=== PATIENT | male | born 1955 | race Caucasian/White ===

== ENCOUNTER 2016-08-03 11:48 | Inpatient (IN) | payer OTHER ==
[~2016-08-03] VITALS: Ht 175.3 cm; Wt 112.0 kg
[~2016-08-03 11:48] MED LIST: ASCO10006 PO; ASPI81TA2 PO; CA C1TAB28 PO; CRAN1TAB6 PO; CYAN25003 SL; FURO-69 PO; GABA-586 PO; GLIM4TAB2 PO; GLUC1CAP48 PO; INSU100I18 SQ; LINA5TAB PO; LIRA0.6P SQ; MULT1TAB52 PO; OMEG1CAP38 PO; OMEP40CA2 PO; PIOG1TAB PO; RAMI10CA PO; SUCR1TAB29 PO; TRAM-29 PO; VITA400C11 PO; [UNRECOGNIZED DRUG - CODE] SQ; magnesium PO
[2016-08-03 12:32] LABS: BILIRUBIN,URINE NEGATIVE (NEG); GLUCOSE,URINE NEGATIVE (NEG); NITRITE,URINE NEGATIVE (NEG); UROBILINOGEN,URINE 0.2 mg/dL (0.2 mg/dL)
[2016-08-03 12:41] LABS: BACTERIA,URINE 0 /HPF (0-FEW); PROTEIN,URINE 30 mg/dL (NEG-TRACE); SQUAMOUS EPITHELIAL CELL,UR OCC /LPF; WBC,URINE 0 /HPF (0-4)
[2016-08-03 12:45] LABS: BASO # 0.1 x10^3/uL (0.0-0.2); BASO % 1 % (0-3); EOS % 6 % (0-3); HEMATOCRIT 46.6 % (39.0-53.0); HEMOGLOBIN 15.5 g/dL (13.0-17.5); LYMPH # 0.7 x10^3/uL (1.0-4.8); LYMPH % 14 % (24-48); MEAN CORPUSCULAR HEMOGLOBIN 30 pg (25-35); MEAN CORPUSCULAR HGB CONC 33 g/dL (31-37); MEAN CORPUSCULAR VOLUME 89 fL (79-100); MONO % 8 % (0-9); NEUT % 71 % (31-73); PLATELET COUNT 90 x10^3/uL (140-400); RED BLOOD COUNT 5.21 x10^6/uL (4.30-5.70); WHITE BLOOD COUNT 5.2 x10^3/uL (4.0-11.0)
[2016-08-03 12:56] LABS: CALCIUM 9.6 mg/dL (8.5-10.1); GFR 75.7
[2016-08-03 13:01] LABS: ALBUMIN 3.2 g/dL (3.4-5.0); DIRECT BILIRUBIN 0.4 mg/dL (0.0-0.2); TOTAL BILIRUBIN 2.2 mg/dL (0.2-1.0); TOTAL PROTEIN 6.3 g/dL (6.4-8.2)
--- NOTE | 2016-08-03 13:02 | EKG ---
[facility] [address] [place] [address] Test Date: 2016-08-03 Test Time: 12:24:44 Pat Name: AMALIA CORDERO Department: Room: Gender: M Prop Setter: : 1955 Requested By: NANETTE WALTER Order Number: [id number] Reading MD: Pam Ogden Measurements Intervals [place] Rate: 60 P: 28 MN: 182 QRS: -54 QRSD: 92 T: 48 QT: 428 QTc: 428 Interpretive Statements SINUS RHYTHM normal ekg Electronically Signed On 08-04-2016 9:48:11 CORPORATE SERVICES MANAGER by Pam Ogden
--- NOTE | 2016-08-03 13:22 | RAD ---
Indication fatigue. Bad health for 6 months. Protocol study. A single view of the chest was obtained. Comparison is made to an examination 07/07/2016. Heart size is at the upper limits of normal. There is no gross congestive heart failure. A focal infiltrate is not seen. Significant pleural fluid is not present. There is no pneumothorax. There are several healed posterior right rib fractures. IMPRESSION: No acute finding apparent in the chest
[2016-08-03] MEDS ORDERED: MORPHINE SULFATE 2 MG/ML DISP.SYRIN. IV PRN (13:45)
[2016-08-03] MEDS ORDERED: ONDANSETRON PF 4 MG/2 ML VIAL. IV PRN (13:45)
--- NOTE | 2016-08-03 13:45 | PHYS DOC ---
Past Medical History Past Medical History: Diabetes-Type II, Hypertension Additional Past Medical Histor: diabetic encephalopathy, svt, URINARY RETENTION , NEUROPATHY Past Surgical History: Cholecystectomy Additional Past Surgical Histo: not able to answer Alcohol Use: None Drug Use: None, Other Adult General Chief Complaint Chief Complaint: WEAKNESS/GENERALIZED HPI HPI 61-year-old male presenting the emergency department with generalized weakness over the past 2 months. He has been intermittently visiting with an infectious disease doctor and receiving multiple types of antibiotics which he reports is improving. He also reports an abnormal ammonia level without an identifiable reason at this point. His primary care physician is trying to get him into a GI doctor but they are unable to so far. Currently he denies any pain anywhere he denies shortness of breath fevers or chills. Onset 3 months Location generalized Duration constant Worse with walking. Review of Systems Review of Systems ROS negative for chest pain shortness of breath fevers chills cough. He denies recent URI. He denies recent GI illness. All other review of systems is negative unless otherwise noted in history of present illness. Current Medications Current Medications Current Medications Medications (Trade) Dose Ordered Sig/Charles Start Time Stop Time Status Last Admin Dose Admin Morphine Sulfate 2 mg PRN Q2HR PRN 08/03/16 13:45 08/04/16 13:44 Ondansetron HCl (Zofran) 4 mg PRN Q8HRS PRN 08/03/16 13:45 08/04/16 13:44 Allergies Allergies Allergies Coded Allergies Type Severity Reaction Last Updated Verified No Known Drug Allergies 07/19/13 No Physical Exam Physical Exam Constitutional: Well developed, well nourished, no acute distress, non-toxic appearance. HENT: Normocephalic, atraumatic, bilateral external ears normal, oropharynx moist, no oral exudates, nose normal. [] Eyes: PERRLA, EOMI, conjunctiva normal, no discharge. [] Neck: Normal range of motion, no tenderness, supple, no stridor. Cardiovascular:Heart rate regular rhythm, no murmur [] Lungs & Thorax: Bilateral breath sounds clear to auscultation [] Abdomen: Bowel sounds normal, soft, no tenderness, no masses, no pulsatile masses. Skin: Warm, dry, no erythema, no rash. [] Back: No tenderness, no CVA tenderness. [] Extremities: No tenderness, no cyanosis, no clubbing, ROM intact, no edema. Neurologic: Mental status: Awake oriented and alert x3 Cranial nerves: Extraocular movements intact, eyebrows vanita bilaterally smile symmetric, uvula elevation, shoulder shrug intact, tongue protrusion normal DTRs: 2+ in knees, 2+ in biceps Sensation: equal and normal in all extremities Strength: 5 out of 5 strength in his upper extremities. 4 minus out of 5 strength in his lower extremities bilaterally. Psychologic: Affect normal, judgement normal, mood normal. [] Current Patient Data Vital Signs Vital Signs Date Time Temp Pulse Resp B/P Pulse Ox O2 Delivery O2 Flow Rate FiO2 08/03/16 13:00 56 16 152/99 94 Room Air 08/03/16 12:38 98.5 98.5 Lab Values Laboratory Tests Test 08/03/16 12:00 08/03/16 12:04 08/03/16 12:19 White Blood Count 5.2x10^3/uL (4.0-11.0) Red Blood Count 5.21x10^6/uL (4.30-5.70) Hemoglobin 15.5g/dL (13.0-17.5) Hematocrit 46.6% (39.0-53.0) Mean Corpuscular Volume 89fL (79-100) Mean Corpuscular Hemoglobin 30pg (25-35) Mean Corpuscular Hemoglobin Concent 33g/dL (31-37) Red Cell Distribution Width 15.0% (11.5-14.5) H Platelet Count 90x10^3/uL (140-400) L Neutrophils (%) (Auto) 71% (31-73) Lymphocytes (%) (Auto) 14% (24-48) L Monocytes (%) (Auto) 8% (0-9) Eosinophils (%) (Auto) 6% (0-3) H Basophils (%) (Auto) 1% (0-3) Neutrophils # (Auto) 3.7x10^3uL (1.8-7.7) Lymphocytes # (Auto) 0.7x10^3/uL (1.0-4.8) L Monocytes # (Auto) 0.4x10^3/uL (0.0-1.1) Eosinophils # (Auto) 0.3x10^3/uL (0.0-0.7) Basophils # (Auto) 0.1x10^3/uL (0.0-0.2) Sodium Level 140mmol/L (136-145) Potassium Level 5.0mmol/L (3.5-5.1) Chloride Level 105mmol/L (98-107) Carbon Dioxide Level 32mmol/L (21-32) Anion Gap 3 (6-14) L Blood Urea Nitrogen 23mg/dL (8-26) Creatinine 1.0mg/dL (0.7-1.3) Estimated GFR (Cockcroft-Gault) 75.7 Glucose Level 232mg/dL (70-99) H Calcium Level 9.6mg/dL (8.5-10.1) Total Bilirubin 2.2mg/dL (0.2-1.0) H Direct Bilirubin 0.4mg/dL (0.0-0.2) H Aspartate Amino Transferase (AST) 45U/L (15-37) H Alanine Aminotransferase (ALT) 43U/L (16-63) Alkaline Phosphatase 78U/L (46-116) Ammonia 157mcmol/L (11-34) H Troponin I Quantitative 0.017ng/mL (0.000-0.055) KJ-Zxb-T-Type Natriuretic Peptide 72pg/mL (0-124) Total Protein 6.3g/dL (6.4-8.2) L Albumin 3.2g/dL (3.4-5.0) L Lipase 126U/L (73-393) Urine Collection Type Void Urine Color Yellow Urine Clarity Clear Urine pH 6.0 Urine Specific [place] 1.015 Urine Protein 30mg/dL (NEG-TRACE) Urine Glucose (UA) Negativemg/dL (NEG) Urine Ketones (Stick) Negativemg/dL (NEG) Urine Blood Small (NEG) Urine Nitrite Negative (NEG) Urine Bilirubin Negative (NEG) Urine Urobilinogen Dipstick 0.2mg/dL (0.2 mg/dL) Urine Leukocyte Esterase Negative (NEG) Urine RBC 1-2/HPF (0-2) Urine WBC 0/HPF (0-4) Urine Squamous Epithelial Cells Occ/LPF Urine Bacteria 0/HPF (0-FEW) Urine Hyaline Casts Few/HPF Urine Mucus Slight/LPF Glucose (Fingerstick) 196mg/dL (70-99) H Laboratory Tests 08/03/16 12:00 Laboratory Tests 08/03/16 12:00 EKG EKG [] Radiology/Procedures Radiology/Procedures [] Course & Med Decision Making Course & Med Decision Making Pertinent Labs and Imaging studies reviewed. (See chart for details) 61-year-old male presenting to the emergency department today with generalized weakness in his lower extremities. On evaluation the patient was afebrile with hypertension. Otherwise normal vital signs. Physical exam showed mild weakness in the lower extremities bilaterally. No history of recent illness to suggest Guillain-Christianson. Pulmonary function tests ordered. Workup included blood work which was normal CBC. Chemistry panel showed hyperglycemia with increased total bili. Direct bili rib and elevated as well. Troponin negative. EKG showed sinus rhythm with a regular rate. ST segments congruent. Intervals normal. Head CT obtained. Urinalysis not suggestive of infection. The patient was then brought in to our hospital for further evaluation workup and care. Multiple consultations placed. Dragon Disclaimer Dragon Disclaimer This electronic medical record was generated, in whole or in part, using a voice recognition dictation system. Departure Departure Impression: Primary Impression: Lower extremity weakness Disposition: ADMITTED INPATIENT Admitting Physician: Aidan Yarbrough Condition: STABLE Referrals: CLINT BARRERA MD (PCP) NANETTE WALTER MD Aug 03, 2016 13:45
[2016-08-03 15:00] VITALS: BP 159/109
--- NOTE | 2016-08-03 15:11 | PDOC2 ---
GI CONSULT Reason For Consult: Elevated bilirubin HPI: HPI: This 61 y/o white male is seen in the ER w/ pending admission to regular floor. H/o LE cellulitis/sepsis and encephalopathy in 02/2016. Since then has been on and off of antibiotics. Symptoms of weakness ("legs feel like noodles") and cognitive changes are improved on antibiotics but recur once stopped. Last round (w/ PICC) was finished a few days ago. says Dr. Porter recommended GI evaluation for symptom recurrence. Labs significant for plt 90, total bilirubin 2.2, direct bilirubin 0.4, AST 45, ALT 43, Alk Phos 78, glucose 232, ammonia 157. In 02/2016, bilirubin was 2.4, ammonia was elevated (30-50 range), and Hep B and C were negative. At that time, CT A/P w/o contrast (for hematuria ) showed splenomegaly w/ possible portal hypertension and normal-appearing liver and pancreas. His says he has fatty liver. GI history additionally significant for PUD on EGD ~10 years ago. He has occasional indigestion after eating spicy foods improved w/ Rolaids and carafate PRN. He has chronic diarrhea (estimates 5 stools daily) that has actually been improved w/ probiotics recently. Last colonoscopy was reportedly normal (also ~10 years ago). S/p cholecystectomy (says for gallstones) in 2015. Denies n/v, change in appetite, reflux/heartburn, dysphagia, hematochezia , melena, constipation, and abdominal pain. He has lost 13 pounds intentionally over the past two months; he has been attempting a more healthy diet. ID and neuro consulted as well. PMH: PMH: HTN, HLD, CVA, PUD, fatty liver, DM, peripheral neuropathy, OA, cholecystectomy FH: Family History: CAD, CVA, DM, Hypertension Social History: Smoke: Quit ALCOHOL: none Drugs: None ROS: GEN: Denies fevers, chills, sweats HEENT: Denies blurred vision, sore throat CV: Denies chest pain RESP: Denies shortness of air, cough GI: Per HPI : Denies hematuria, dysuria ENDO: intentional weight loss NEURO: - "changes in thought process" MSK: weakness, particularly lower extremity SKIN: Denies jaundice, pruritus VItals: Vitals: Vital Signs Date Time Temp Pulse Resp B/P Pulse Ox O2 Delivery O2 Flow Rate FiO2 08/03/16 14:00 54 14 168/74 93 08/03/16 13:00 Room Air 08/03/16 12:38 98.5 98.5 Labs: Labs: Laboratory Tests Test 08/03/16 12:00 08/03/16 12:04 08/03/16 12:19 White Blood Count 5.2x10^3/uL (4.0-11.0) Red Blood Count 5.21x10^6/uL (4.30-5.70) Hemoglobin 15.5g/dL (13.0-17.5) Hematocrit 46.6% (39.0-53.0) Mean Corpuscular Volume 89fL (79-100) Mean Corpuscular Hemoglobin 30pg (25-35) Mean Corpuscular Hemoglobin Concent 33g/dL (31-37) Red Cell Distribution Width 15.0% (11.5-14.5) Platelet Count 90x10^3/uL (140-400) Neutrophils (%) (Auto) 71% (31-73) Lymphocytes (%) (Auto) 14% (24-48) Monocytes (%) (Auto) 8% (0-9) Eosinophils (%) (Auto) 6% (0-3) Basophils (%) (Auto) 1% (0-3) Neutrophils # (Auto) 3.7x10^3uL (1.8-7.7) Lymphocytes # (Auto) 0.7x10^3/uL (1.0-4.8) Monocytes # (Auto) 0.4x10^3/uL (0.0-1.1) Eosinophils # (Auto) 0.3x10^3/uL (0.0-0.7) Basophils # (Auto) 0.1x10^3/uL (0.0-0.2) Sodium Level 140mmol/L (136-145) Potassium Level 5.0mmol/L (3.5-5.1) Chloride Level 105mmol/L (98-107) Carbon Dioxide Level 32mmol/L (21-32) Anion Gap 3 (6-14) Blood Urea Nitrogen 23mg/dL (8-26) Creatinine 1.0mg/dL (0.7-1.3) Estimated GFR (Cockcroft-Gault) 75.7 Glucose Level 232mg/dL (70-99) Calcium Level 9.6mg/dL (8.5-10.1) Total Bilirubin 2.2mg/dL (0.2-1.0) Direct Bilirubin 0.4mg/dL (0.0-0.2) Aspartate Amino Transf (AST/SGOT) 45U/L (15-37) Alanine Aminotransferase (ALT/SGPT) 43U/L (16-63) Alkaline Phosphatase 78U/L (46-116) Ammonia 157mcmol/L (11-34) Troponin I Quantitative 0.017ng/mL (0.000-0.055) DA-Snx-I-Type Natriuretic Peptide 72pg/mL (0-124) Total Protein 6.3g/dL (6.4-8.2) Albumin 3.2g/dL (3.4-5.0) Lipase 126U/L (73-393) Urine Collection Type Void Urine Color Yellow Urine Clarity Clear Urine pH 6.0 Urine Specific [place] 1.015 Urine Protein 30mg/dL (NEG-TRACE) Urine Glucose (UA) Negativemg/dL (NEG) Urine Ketones (Stick) Negativemg/dL (NEG) Urine Blood Small (NEG) Urine Nitrite Negative (NEG) Urine Bilirubin Negative (NEG) Urine Urobilinogen Dipstick 0.2mg/dL (0.2 mg/dL) Urine Leukocyte Esterase Negative (NEG) Urine RBC 1-2/HPF (0-2) Urine WBC 0/HPF (0-4) Urine Squamous Epithelial Cells Occ/LPF Urine Bacteria 0/HPF (0-FEW) Urine Hyaline Casts Few/HPF Urine Mucus Slight/LPF Glucose (Fingerstick) 196mg/dL (70-99) Allergies: Coded Allergies: No Known Drug Allergies (Unverified , 07/19/13) Medications: Please see EMR. Imaging: Imaging: Reviewed previous. PE: GEN: NAD, sitting in chair HEENT: Atraumatic, PERRL LUNGS: CTAB anteriorly HEART: S1S2 ABD: NABS, S/ND/NT EXTREMITY: BLE pitting edema SKIN: No rashes, no jaundice NEURO/PSYCH: A & O 3 A/P: A/P: Weakness, cognitive changes -apparent since cellulitis/sepsis in 02/2016, improved w/ antibiotics but recurs Elevated bilirubin, hyperammonemia -splenomegaly and ?portal hypertension on previous CT w/o contrast -Hep B antigen and C antibody previously neg -no significant alcohol history, does have h/o DM w/ fatty liver per Chronic diarrhea -generally about 5 stools daily, actually improved w/ probiotics recently H/o PUD -on EGD 10 years ago -now has only occasional dyspeptic symptoms improved w/ antacids and Carafate CRC screen -reports normal colonoscopy 10 years ago -- D/w Pr. Propeck. Seems like cirrhosis w/ hepatic encephalopathy - ?WALTER Will start Xifaxan - lactulose an option, but does have chronic diarrhea. Check additional labs - GUILLAUME, AMA, ASMA, iron studies, hFE, AFP. Will also check abd Doppler r/o thrombosis. FERNANDEZ CHEEK Aug 03, 2016 15:11
[2016-08-03 15:27] VITALS: BP 156/109
[2016-08-03] MEDS ORDERED: OMEG500C PO (16:25)
[2016-08-03] MEDS ORDERED: CYAN1TAB19 PO (16:25)
[2016-08-03] MEDS ORDERED: GABA600T2 PO (16:25)
[2016-08-03] MEDS ORDERED: TAMS0.4C97 PO (16:25)
--- NOTE | 2016-08-03 16:44 | PDOC2 ---
NEUROLOGY CONSULT Date of Admission Date of Admission DATE: 08/03/16 TIME: 16:24 Reason for Consult Reason for Consult: weakness Referring Physician Referring Physician: Dr. Yarbrough PCP: Dr. Moreno Source Source: Chart review, Patient History of Present Illness History of Present Illness The patient is a 61-year-old right-handed male who has felt poorly for nearly a year. He came in February last year and saw myself and Dr. Padilla regarding episodes of syncope, memory loss, and weakness. He had extensive workup as summarized below. Since then, he has had bouts of weakness. He has received antibiotic treatments which seem to give him a boost, but then he slides back after they are done. He saw Dr. Ryder who put the patient on gabapentin. The patient denies fevers, chills, weight loss, dyspnea, dysuria, diplopia, dysphagia, and he really thinks his cognitive level is fine. There is no history of stroke, seizure, or head injury although MRI as reviewed below did show prior infarcts. Past Medical History Cardiovascular: CHF, HTN, Other (PAT) Pulmonary: Pneumonia, Other (sleep apnea) CENTRAL NERVOUS SYSTEM: Periperal neuropathy GI: Peptic Ulcer disease Heme/Onc: Anemia NOS Musculoskeletal: Osteoarthritis Endocrine: Diabetes Past Surgical History Past Surgical History: Cholecystectomy, Other (implantable loop recorder) Family History Family History: CAD Social History Social History , nonsmoker, nondrinker, has not worked in 8 months. Current Medications Current Medications Current Medications Ondansetron HCl (Zofran) 4 mg PRN Q8HRS PRN IV NAUSEA/VOMITING; Start 08/03/16 at 13:45; Stop 08/04/16 at 13:44 Morphine Sulfate 2 mg PRN Q2HR PRN IV PAIN; Start 08/03/16 at 13:45; Stop 08/04 at 13:44 Lactobacillus Acidophilus (Bacid, Debbie-Bid) 1 tab DAILY PO ; Start 08/04/16 at 09:00 Rifaximin (Xifaxan) 550 mg Q12HR PO ; Start 08/03/16 at 21:00 Active Scripts Active Reported Victoza 2-Marvel (Liraglutide) 0.6 Mg/0.1 Ml Pen.injctr 1.8 Mg SQ DAILYBFRLUN [magnesium] 1 Tab PO DAILY Cranberry Tablet (Cranberry Conc/C/Bacill Coag) 1 Each Tablet 1 Each PO DAILY Multivitamins (Multivitamin) 1 Each Tablet 1 Each PO DAILY Vitamin B-12 (Cyanocobalamin (Vitamin B-12)) 2,500 Mcg Tab.subl 2,500 Mcg SL DAILY Dane 3 Fish Oil Softgel (Dane-3 Fatty Acids/Fish Oil) 1 Each Capsule. 1 Each PO DAILY Vitamin C (Ascorbic Acid) 1,000 Mg Tablet.er 1,000 Mg PO DAILY Vitamin D3 1,000 Unit Tablet (Ca Cmb No.1/Vit D3/B-6/Fa/B12) 1 Each Tablet 1 Each PO DAILY Vitamin E 400 Unit Capsule 400 Unit PO DAILY Glucosamine & Chondroitin Cap (Gluc 2KCL/Chondr/Seema Hy/Hy Ac) 1 Each Capsule 1 Each PO DAILY Carafate (Sucralfate) 1 Gm Tablet 1 Gm PO PRN QID Levemir Flexpen (Insulin Detemir) 100 Unit/1 Ml Insuln.pen 60 Unit SQ DAILYBFRLUN Aspirin 81 Mg Tab.chew 81 Mg PO DAILY Neurontin (Gabapentin) 300 Mg Capsule 1,200 Mg PO PRN BID Lasix (Furosemide) 20 Mg Tablet 20 Mg PO PRN BID Pioglitazone-Metformin 15-850 (Pioglitazone Hcl/Metformin Hcl) 1 Each Tablet 2 Tab PO DAILYBFRSUP Pioglitazone-Metformin 15-850 (Pioglitazone Hcl/Metformin Hcl) 1 Each Tablet 1 Tab PO DAILYWBKFT Tradjenta (Linagliptin) 5 Mg Tablet 5 Mg PO DAILY Glimepiride 4 Mg Tablet 4 Mg PO BID94 Ultram (Tramadol Hcl) 50 Mg Tablet 50 Mg PO TID PRN Ramipril 10 Mg Capsule 20 Mg PO DAILY Prilosec (Omeprazole) 40 Mg Capsule. 40 Mg PO DAILY Allergies Allergies: Coded Allergies: No Known Drug Allergies (Unverified , 07/19/13) ROS Review of System Patient denies fevers, chills, weight loss, dyspnea, angina, abdominal pain, change in bowels, or dysuria. 14 point review of systems is negative. Physical Exam Physical Examination PHYSICAL EXAMINATION: Vital signs: see above. General appearance is normal and in no acute distress. HEENT: Normocephalic and nontraumatic. Eyes, nose, ears, and throat are unremarkable. Neck is supple. No lymphadenopathy. No bruits are heard over the carotid artery. No crepitus. NEUROLOGICAL EXAMINATION: Mental Status Examination: Alert. Oriented to time, place, and person. Answers questions and follows commends. Pupils are equal round and reactive to light and accommodation. Funduscopic exam: No papilledema. Extraocular movements are intact. Visual field exam shows no defect on the direct confrontation. No motor or sensory deficits on the facial exam. Uvula in the midline and the soft palate elevated symmetrically. No deviation of the tongue to any direction. Gross hearing is normal. Shoulder shrug normal. Muscle tone is normal. Muscle strength is 5. Deep tendon reflexes are 0+ all around. Plantar reflex is with flexion response bilaterally. Ppuxqf-hz-ekgo test performance is accurate. Alternative movements are accurate. Gait is mildly apraxic. Sensory exam shows stocking loss. No cerebellar signs are elicited. Vitals VITALS Vital Signs Date Time Temp Pulse Resp B/P Pulse Ox O2 Delivery O2 Flow Rate FiO2 08/03/16 15:27 98.1 55 19 156/109 96 Room Air 98.1 Labs Labs Laboratory Tests Test 08/03/16 12:00 08/03/16 12:04 08/03/16 12:19 White Blood Count 5.2x10^3/uL (4.0-11.0) Red Blood Count 5.21x10^6/uL (4.30-5.70) Hemoglobin 15.5g/dL (13.0-17.5) Hematocrit 46.6% (39.0-53.0) Mean Corpuscular Volume 89fL (79-100) Mean Corpuscular Hemoglobin 30pg (25-35) Mean Corpuscular Hemoglobin Concent 33g/dL (31-37) Red Cell Distribution Width 15.0% (11.5-14.5) Platelet Count 90x10^3/uL (140-400) Neutrophils (%) (Auto) 71% (31-73) Lymphocytes (%) (Auto) 14% (24-48) Monocytes (%) (Auto) 8% (0-9) Eosinophils (%) (Auto) 6% (0-3) Basophils (%) (Auto) 1% (0-3) Neutrophils # (Auto) 3.7x10^3uL (1.8-7.7) Lymphocytes # (Auto) 0.7x10^3/uL (1.0-4.8) Monocytes # (Auto) 0.4x10^3/uL (0.0-1.1) Eosinophils # (Auto) 0.3x10^3/uL (0.0-0.7) Basophils # (Auto) 0.1x10^3/uL (0.0-0.2) Sodium Level 140mmol/L (136-145) Potassium Level 5.0mmol/L (3.5-5.1) Chloride Level 105mmol/L (98-107) Carbon Dioxide Level 32mmol/L (21-32) Anion Gap 3 (6-14) Blood Urea Nitrogen 23mg/dL (8-26) Creatinine 1.0mg/dL (0.7-1.3) Estimated GFR (Cockcroft-Gault) 75.7 Glucose Level 232mg/dL (70-99) Calcium Level 9.6mg/dL (8.5-10.1) Total Bilirubin 2.2mg/dL (0.2-1.0) Direct Bilirubin 0.4mg/dL (0.0-0.2) Aspartate Amino Transf (AST/SGOT) 45U/L (15-37) Alanine Aminotransferase (ALT/SGPT) 43U/L (16-63) Alkaline Phosphatase 78U/L (46-116) Ammonia 157mcmol/L (11-34) Troponin I Quantitative 0.017ng/mL (0.000-0.055) IO-Lrx-I-Type Natriuretic Peptide 72pg/mL (0-124) Total Protein 6.3g/dL (6.4-8.2) Albumin 3.2g/dL (3.4-5.0) Lipase 126U/L (73-393) Urine Collection Type Void Urine Color Yellow Urine Clarity Clear Urine pH 6.0 Urine Specific [place] 1.015 Urine Protein 30mg/dL (NEG-TRACE) Urine Glucose (UA) Negativemg/dL (NEG) Urine Ketones (Stick) Negativemg/dL (NEG) Urine Blood Small (NEG) Urine Nitrite Negative (NEG) Urine Bilirubin Negative (NEG) Urine Urobilinogen Dipstick 0.2mg/dL (0.2 mg/dL) Urine Leukocyte Esterase Negative (NEG) Urine RBC 1-2/HPF (0-2) Urine WBC 0/HPF (0-4) Urine Squamous Epithelial Cells Occ/LPF Urine Bacteria 0/HPF (0-FEW) Urine Hyaline Casts Few/HPF Urine Mucus Slight/LPF Glucose (Fingerstick) 196mg/dL (70-99) Laboratory Tests Test 08/03/16 12:00 08/03/16 12:04 08/03/16 12:19 White Blood Count 5.2x10^3/uL (4.0-11.0) Red Blood Count 5.21x10^6/uL (4.30-5.70) Hemoglobin 15.5g/dL (13.0-17.5) Hematocrit 46.6% (39.0-53.0) Mean Corpuscular Volume 89fL (79-100) Mean Corpuscular Hemoglobin 30pg (25-35) Mean Corpuscular Hemoglobin Concent 33g/dL (31-37) Red Cell Distribution Width 15.0% (11.5-14.5) Platelet Count 90x10^3/uL (140-400) Neutrophils (%) (Auto) 71% (31-73) Lymphocytes (%) (Auto) 14% (24-48) Monocytes (%) (Auto) 8% (0-9) Eosinophils (%) (Auto) 6% (0-3) Basophils (%) (Auto) 1% (0-3) Neutrophils # (Auto) 3.7x10^3uL (1.8-7.7) Lymphocytes # (Auto) 0.7x10^3/uL (1.0-4.8) Monocytes # (Auto) 0.4x10^3/uL (0.0-1.1) Eosinophils # (Auto) 0.3x10^3/uL (0.0-0.7) Basophils # (Auto) 0.1x10^3/uL (0.0-0.2) Sodium Level 140mmol/L (136-145) Potassium Level 5.0mmol/L (3.5-5.1) Chloride Level 105mmol/L (98-107) Carbon Dioxide Level 32mmol/L (21-32) Anion Gap 3 (6-14) Blood Urea Nitrogen 23mg/dL (8-26) Creatinine 1.0mg/dL (0.7-1.3) Estimated GFR (Cockcroft-Gault) 75.7 Glucose Level 232mg/dL (70-99) Calcium Level 9.6mg/dL (8.5-10.1) Total Bilirubin 2.2mg/dL (0.2-1.0) Direct Bilirubin 0.4mg/dL (0.0-0.2) Aspartate Amino Transf (AST/SGOT) 45U/L (15-37) Alanine Aminotransferase (ALT/SGPT) 43U/L (16-63) Alkaline Phosphatase 78U/L (46-116) Ammonia 157mcmol/L (11-34) Troponin I Quantitative 0.017ng/mL (0.000-0.055) CZ-Gij-U-Type Natriuretic Peptide 72pg/mL (0-124) Total Protein 6.3g/dL (6.4-8.2) Albumin 3.2g/dL (3.4-5.0) Lipase 126U/L (73-393) Urine Collection Type Void Urine Color Yellow Urine Clarity Clear Urine pH 6.0 Urine Specific [place] 1.015 Urine Protein 30mg/dL (NEG-TRACE) Urine Glucose (UA) Negativemg/dL (NEG) Urine Ketones (Stick) Negativemg/dL (NEG) Urine Blood Small (NEG) Urine Nitrite Negative (NEG) Urine Bilirubin Negative (NEG) Urine Urobilinogen Dipstick 0.2mg/dL (0.2 mg/dL) Urine Leukocyte Esterase Negative (NEG) Urine RBC 1-2/HPF (0-2) Urine WBC 0/HPF (0-4) Urine Squamous Epithelial Cells Occ/LPF Urine Bacteria 0/HPF (0-FEW) Urine Hyaline Casts Few/HPF Urine Mucus Slight/LPF Glucose (Fingerstick) 196mg/dL (70-99) Images Images Brain MRI w/wo contrast on 02/13/16: old lacunar strokes. EEG on 03/02/16: Normal. Head CT 03/02/16: negative. Carotid Doppler: no high grade stenosis. Echo: Unremarkable. CT abdomen/pelvis, 03/02/16: Splenomegaly with multiple prominent vascular channels along the splenic hilum and retroperitoneum raising question for portal hypertension labs in 03/03: elevated ammonia, normal B12, HgbA1C 7.0 Assessment/Plan Assessment/Plan Impression: This is a picture of peripheral neuropathy, most likely just from diabetes, but there are some strange wrinkles including response to antibiotics, the memory loss, the elevated liver function testing including ammonia level, the intermittency of the weakness. I find no evidence of central nervous system disease. We need to look for other causes of neuropathy. I am also keeping in mind the possibility of myasthenia gravis. Given the response to antibiotics we need to look for an infectious process within the central nervous system. Recommendations: GI workup Additional laboratory studies Lumbar puncture Rehabilitation modalities EMG/NCV which I will do later in the hospital stay after these intial tests are back Thank you for letting me help with the patient's care. JONO GARZA MD Aug 03, 2016 4:44 pm
[2016-08-03] MEDS ORDERED: INSU100V13 SQ (16:57)
[2016-08-03] MEDS ORDERED: INSU100C4 SQ (16:57)
[2016-08-03] MEDS ORDERED: MULT-208 PO (17:02)
[2016-08-03] MEDS ORDERED: FERR-26 PO (17:02)
[2016-08-03] MEDS ORDERED: RAMI10CA PO (17:02)
[2016-08-03] MEDS ORDERED: METO25TA4 PO (17:04)
[2016-08-03] MEDS ORDERED: SUCRALFATE 1 GM TABLET. PO PRN (18:00)
--- NOTE | 2016-08-03 18:30 | RAD ---
PROCEDURE CT head without intravenous contrast. HISTORY Generalized weakness. TECHNIQUE Axial images are obtained of the head from the skull base through the vertex without IV contrast Exposure: One or more of the following individualized dose reduction techniques were utilized for this examination: 1. Automated exposure control. 2. Adjustment of the mA and/or kV according to patient size. 3. Use of iterative reconstruction technique. COMPARISON CT head February 27, 2016. FINDINGS The ventricles are appropriate in size, shape, and location for the patient's age.No obvious intracranial mass, mass-effect, midline shift, hemorrhage or obvious acute infarction is identified.Basilar cisterns are patent. Bone windows demonstrate no acute calvarial abnormality.The visualized paranasal sinuses appear clear. IMPRESSION No acute intracranial process. Please note that CT can be relatively insensitive to acute ischemic infarction for up to 24 hours after symptom onset. Electronically signed by: Lai Dumont MD (Aug 03, 2016 18:28:53)
--- NOTE | 2016-08-03 18:58 | HP ---
ADMIT DATE: 08/03/2016 CHIEF COMPLAINT: Lower extremity weakness and numbness. HISTORY OF PRESENT ILLNESS: The patient is a pleasant 61-year-old male, presented with the above chief complaints. Basically, it has been coming on for 2 months off and on and sometimes he feels weak and other times he feels like his feet are well. It appears he might just have a neuropathy, but he has been treated recently with antibiotics for 40 days according to his , he was septic. I discussed the case with the ER physician. He does have some lab abnormalities including elevated liver function test, elevated ammonia and elevated total bili. We are going to admit the patient and consult GI and Neurology. PAST MEDICAL HISTORY: Diabetes, hypertension, recent sepsis, neuropathy, urinary retention, cholecystectomy. ALLERGIES: None. FAMILY HISTORY: Diabetes. SOCIAL HISTORY: He is retired. He does not drink, smoke or take drugs. He is . MEDICATIONS: Reviewed, please refer to the MRAD. REVIEW OF SYSTEMS: GENERAL: No history of weight change, weakness or fevers. SKIN: No bruising, hair changes or rashes. EYES: No blurred, double or loss of vision. NOSE AND THROAT: No history of nosebleeds, hoarseness or sore throat. HEART: No history of palpitations, chest pain or shortness of breath on exertion. LUNGS: Denies cough, hemoptysis, wheezing or shortness of breath. GASTROINTESTINAL: Denies changes in appetite, nausea, vomiting, diarrhea or constipation. GENITOURINARY: No history of frequency, urgency, hesitancy or nocturia. NEUROLOGIC: Complains of lower extremity weakness and numbness and some tingling, all intermittently. PSYCHIATRIC: No history of panic, anxiety or depression. ENDOCRINE: No history of heat or cold intolerance, polyuria or polydipsia. EXTREMITIES: Denies muscle weakness, joint pain, pain on walking or stiffness. PHYSICAL EXAMINATION: VITAL SIGNS: Temperature afebrile, pulse 67, respirations 20, blood pressure 159/109. GENERAL: He is alert, cooperative, up in the chair. His is present. HEART: Normal S1, S2. LUNGS: Clear. ABDOMEN: Soft, positive bowel sounds. EXTREMITIES: Trace 1+ edema. SKIN: No rashes. His feet are dry. ENDOCRINE: No thyromegaly. LYMPHATICS: No cervical nodes. HEMATOPOIETIC: No bruising. LABORATORY DATA: White count 5, hemoglobin 15.5, platelets 90. Electrolytes: Sodium 140, potassium 5, chloride 105, bicarbonate 32, BUN 23, creatinine 1, glucose 232. Ammonia level high at 157. Troponin 0. AST a little high at 45. Total bilirubin high at 2.2. Urinalysis is negative. ASSESSMENT AND PLAN: Numbness, weakness in his feet with incidental finding of hyperbilirubinemia, elevated ammonia level and recent sepsis. The patient is being admitted. We will consult Dr. Curtis and consult Dr. Harrington. Frequent labs. Continue home medicines, PT, OT. PROGNOSIS: Guarded. BENJAMIN OSCAR DO DR: HENNA/carlos eduardo JOB#: [id number] / [id number]
[2016-08-03 19:00] VITALS: BP 179/69
[2016-08-03 19:11] LABS: % SAT IRON 35 % (15-34); IRON,SERUM 107 ug/dL (65-175)
[2016-08-03] MEDS: AMLODIPINE BESYLATE 10 MG TABLET PO SCH (19:30)
[2016-08-03] MEDS: INSULIN ASPART 300 UNITS/3 ML INSULN.PEN SQ SCH (19:40)
[2016-08-03] MEDS: METOPROLOL TART IMMED RELEASE 25 MG TABLET PO SCH (20:50)
[2016-08-03] MEDS: GABAPENTIN 400 MG CAPSULE. PO SCH (20:50)
[2016-08-03] MEDS: RIFAXIMIN 550 MG TABLET PO SCH (20:50)
[2016-08-03 23:00] VITALS: BP 152/55
[2016-08-04 03:00] VITALS: BP 144/56
[2016-08-04 03:51] LABS: BASO # 0.1 x10^3/uL (0.0-0.2); BASO % 1 % (0-3); EOS % 11 % (0-3); HEMATOCRIT 44.2 % (39.0-53.0); HEMOGLOBIN 14.9 g/dL (13.0-17.5); LYMPH # 0.9 x10^3/uL (1.0-4.8); LYMPH % 18 % (24-48); MEAN CORPUSCULAR HEMOGLOBIN 30 pg (25-35); MEAN CORPUSCULAR HGB CONC 34 g/dL (31-37); MEAN CORPUSCULAR VOLUME 89 fL (79-100); MONO % 10 % (0-9); NEUT % 60 % (31-73); PLATELET COUNT 102 x10^3/uL (140-400); RED BLOOD COUNT 4.95 x10^6/uL (4.30-5.70); RED CELL DISTRIBUTION WIDTH 15.8 % (11.5-14.5); WHITE BLOOD COUNT 5.1 x10^3/uL (4.0-11.0)
[2016-08-04 03:58] LABS: CALCIUM 9.2 mg/dL (8.5-10.1); GFR 75.7; POTASSIUM 4.4 mmol/L (3.5-5.1)
[2016-08-04 04:03] LABS: ALBUMIN 2.9 g/dL (3.4-5.0); DIRECT BILIRUBIN 0.4 mg/dL (0.0-0.2); TOTAL BILIRUBIN 2.3 mg/dL (0.2-1.0); TOTAL PROTEIN 6.6 g/dL (6.4-8.2)
[2016-08-04 07:20] VITALS: BP 156/63
[2016-08-04] MEDS: INSULIN ASPART 300 UNITS/3 ML INSULN.PEN SQ SCH ×3 (07:30→18:09)
[2016-08-04] MEDS: GLIMEPIRIDE 2 MG TABLET PO SCH ×2 (08:00→18:02)
--- NOTE | 2016-08-04 08:39 | RAD ---
Deep Doppler abdominal ultrasound, 08/03/2016: History: Hyperammonemia, portal vein thrombosis Duplex evaluation of the hepatic vasculature was performed including grayscale, color-flow and spectral Doppler analysis. Comparison is made to a study from 03/02/2016. The hepatic veins are unremarkable. The hepatic artery at the hepatic hilum is patent. No blood flow is evident in the main portal vein at the hepatic hilum. Thrombosis of the portal vein was also noted on the 03/02/2016 exam. IMPRESSION: Chronic portal vein thrombosis
--- NOTE | 2016-08-04 08:45 | PDOC ---
PROGRESS NOTES Assessment Problems Medical Problems: (1) Lower extremity weakness Status: Acute Diabetic neuropathy, rule out other causes Encephalopathy, could be hepatic Hepatic insufficiency, portal hypertension Unexplained improvements with antibiotics, rule out [employer] infection Plan Await labs Await LP ID and GI consults EMG/NCV (by me) Rehab Gabapentin Subjective denies pain Objective Vital Signs Date Time Temp Pulse Resp B/P Pulse Ox O2 Delivery O2 Flow Rate FiO2 08/04/16 07:20 97.7 61 16 156/63 92 Room Air 97.7 Intake and Output 08/04/16 07:00 Intake Total 300 ml Output Total 750 ml Balance -450 ml Intake Oral 300 ml Output Urine Total 750 ml # Voids 1 PHYSICAL EXAM Alert. Oriented to time, place and person. PERRL. EOMI. CN: no focal findings. Muscle tone: normal. Muscle strength: 5/5 DTR: 0-1+ Plantar reflex: flexor Gait: not examined in bed. Sensory exam: stocking loss. No cerebellar signs elicited. Review of Relevant I have reviewed the following items kailash (where applicable) has been applied. Labs Laboratory Tests Test 08/03/16 12:00 08/03/16 12:04 08/03/16 12:19 08/03/16 15:35 White Blood Count 5.2x10^3/uL (4.0-11.0) Red Blood Count 5.21x10^6/uL (4.30-5.70) Hemoglobin 15.5g/dL (13.0-17.5) Hematocrit 46.6% (39.0-53.0) Mean Corpuscular Volume 89fL (79-100) Mean Corpuscular Hemoglobin 30pg (25-35) Mean Corpuscular Hemoglobin Concent 33g/dL (31-37) Red Cell Distribution Width 15.0% (11.5-14.5) Platelet Count 90x10^3/uL (140-400) Neutrophils (%) (Auto) 71% (31-73) Lymphocytes (%) (Auto) 14% (24-48) Monocytes (%) (Auto) 8% (0-9) Eosinophils (%) (Auto) 6% (0-3) Basophils (%) (Auto) 1% (0-3) Neutrophils # (Auto) 3.7x10^3uL (1.8-7.7) Lymphocytes # (Auto) 0.7x10^3/uL (1.0-4.8) Monocytes # (Auto) 0.4x10^3/uL (0.0-1.1) Eosinophils # (Auto) 0.3x10^3/uL (0.0-0.7) Basophils # (Auto) 0.1x10^3/uL (0.0-0.2) Sodium Level 140mmol/L (136-145) Potassium Level 5.0mmol/L (3.5-5.1) Chloride Level 105mmol/L (98-107) Carbon Dioxide Level 32mmol/L (21-32) Anion Gap 3 (6-14) Blood Urea Nitrogen 23mg/dL (8-26) Creatinine 1.0mg/dL (0.7-1.3) Estimated GFR (Cockcroft-Gault) 75.7 Glucose Level 232mg/dL (70-99) Calcium Level 9.6mg/dL (8.5-10.1) Total Bilirubin 2.2mg/dL (0.2-1.0) Direct Bilirubin 0.4mg/dL (0.0-0.2) Aspartate Amino Transf (AST/SGOT) 45U/L (15-37) Alanine Aminotransferase (ALT/SGPT) 43U/L (16-63) Alkaline Phosphatase 78U/L (46-116) Ammonia 157mcmol/L (11-34) Troponin I Quantitative 0.017ng/mL (0.000-0.055) XT-Maq-Q-Type Natriuretic Peptide 72pg/mL (0-124) Total Protein 6.3g/dL (6.4-8.2) Albumin 3.2g/dL (3.4-5.0) Lipase 126U/L (73-393) Urine Collection Type Void Urine Color Yellow Urine Clarity Clear Urine pH 6.0 Urine Specific [place] 1.015 Urine Protein 30mg/dL (NEG-TRACE) Urine Glucose (UA) Negativemg/dL (NEG) Urine Ketones (Stick) Negativemg/dL (NEG) Urine Blood Small (NEG) Urine Nitrite Negative (NEG) Urine Bilirubin Negative (NEG) Urine Urobilinogen Dipstick 0.2mg/dL (0.2 mg/dL) Urine Leukocyte Esterase Negative (NEG) Urine RBC 1-2/HPF (0-2) Urine WBC 0/HPF (0-4) Urine Squamous Epithelial Cells Occ/LPF Urine Bacteria 0/HPF (0-FEW) Urine Hyaline Casts Few/HPF Urine Mucus Slight/LPF Glucose (Fingerstick) 196mg/dL (70-99) Iron Level 107ug/dL (65-175) Total Iron Binding Capacity 303ug/dL (250-450) Iron Saturation 35% (15-34) Test 08/03/16 17:17 08/03/16 20:29 08/04/16 03:30 08/04/16 07:40 Glucose (Fingerstick) 220mg/dL (70-99) 230mg/dL (70-99) 136mg/dL (70-99) White Blood Count 5.1x10^3/uL (4.0-11.0) Red Blood Count 4.95x10^6/uL (4.30-5.70) Hemoglobin 14.9g/dL (13.0-17.5) Hematocrit 44.2% (39.0-53.0) Mean Corpuscular Volume 89fL (79-100) Mean Corpuscular Hemoglobin 30pg (25-35) Mean Corpuscular Hemoglobin Concent 34g/dL (31-37) Red Cell Distribution Width 15.8% (11.5-14.5) Platelet Count 102x10^3/uL (140-400) Neutrophils (%) (Auto) 60% (31-73) Lymphocytes (%) (Auto) 18% (24-48) Monocytes (%) (Auto) 10% (0-9) Eosinophils (%) (Auto) 11% (0-3) Basophils (%) (Auto) 1% (0-3) Neutrophils # (Auto) 3.1x10^3uL (1.8-7.7) Lymphocytes # (Auto) 0.9x10^3/uL (1.0-4.8) Monocytes # (Auto) 0.5x10^3/uL (0.0-1.1) Eosinophils # (Auto) 0.6x10^3/uL (0.0-0.7) Basophils # (Auto) 0.1x10^3/uL (0.0-0.2) Erythrocyte Sedimentation Rate 4 (0-15) Sodium Level 145mmol/L (136-145) Potassium Level 4.4mmol/L (3.5-5.1) Chloride Level 108mmol/L (98-107) Carbon Dioxide Level 31mmol/L (21-32) Anion Gap 6 (6-14) Blood Urea Nitrogen 24mg/dL (8-26) Creatinine 1.0mg/dL (0.7-1.3) Estimated GFR (Cockcroft-Gault) 75.7 Glucose Level 114mg/dL (70-99) Calcium Level 9.2mg/dL (8.5-10.1) Total Bilirubin 2.3mg/dL (0.2-1.0) Direct Bilirubin 0.4mg/dL (0.0-0.2) Aspartate Amino Transf (AST/SGOT) 36U/L (15-37) Alanine Aminotransferase (ALT/SGPT) 37U/L (16-63) Alkaline Phosphatase 72U/L (46-116) Ammonia 114mcmol/L (11-34) Total Protein 6.6g/dL (6.4-8.2) Albumin 2.9g/dL (3.4-5.0) Laboratory Tests Test 08/03/16 12:00 08/03/16 12:04 08/03/16 12:19 08/03/16 15:35 White Blood Count 5.2x10^3/uL (4.0-11.0) Red Blood Count 5.21x10^6/uL (4.30-5.70) Hemoglobin 15.5g/dL (13.0-17.5) Hematocrit 46.6% (39.0-53.0) Mean Corpuscular Volume 89fL (79-100) Mean Corpuscular Hemoglobin 30pg (25-35) Mean Corpuscular Hemoglobin Concent 33g/dL (31-37) Red Cell Distribution Width 15.0% (11.5-14.5) Platelet Count 90x10^3/uL (140-400) Neutrophils (%) (Auto) 71% (31-73) Lymphocytes (%) (Auto) 14% (24-48) Monocytes (%) (Auto) 8% (0-9) Eosinophils (%) (Auto) 6% (0-3) Basophils (%) (Auto) 1% (0-3) Neutrophils # (Auto) 3.7x10^3uL (1.8-7.7) Lymphocytes # (Auto) 0.7x10^3/uL (1.0-4.8) Monocytes # (Auto) 0.4x10^3/uL (0.0-1.1) Eosinophils # (Auto) 0.3x10^3/uL (0.0-0.7) Basophils # (Auto) 0.1x10^3/uL (0.0-0.2) Sodium Level 140mmol/L (136-145) Potassium Level 5.0mmol/L (3.5-5.1) Chloride Level 105mmol/L (98-107) Carbon Dioxide Level 32mmol/L (21-32) Anion Gap 3 (6-14) Blood Urea Nitrogen 23mg/dL (8-26) Creatinine 1.0mg/dL (0.7-1.3) Estimated GFR (Cockcroft-Gault) 75.7 Glucose Level 232mg/dL (70-99) Calcium Level 9.6mg/dL (8.5-10.1) Total Bilirubin 2.2mg/dL (0.2-1.0) Direct Bilirubin 0.4mg/dL (0.0-0.2) Aspartate Amino Transf (AST/SGOT) 45U/L (15-37) Alanine Aminotransferase (ALT/SGPT) 43U/L (16-63) Alkaline Phosphatase 78U/L (46-116) Ammonia 157mcmol/L (11-34) Troponin I Quantitative 0.017ng/mL (0.000-0.055) PH-Kqe-G-Type Natriuretic Peptide 72pg/mL (0-124) Total Protein 6.3g/dL (6.4-8.2) Albumin 3.2g/dL (3.4-5.0) Lipase 126U/L (73-393) Urine Collection Type Void Urine Color Yellow Urine Clarity Clear Urine pH 6.0 Urine Specific [place] 1.015 Urine Protein 30mg/dL (NEG-TRACE) Urine Glucose (UA) Negativemg/dL (NEG) Urine Ketones (Stick) Negativemg/dL (NEG) Urine Blood Small (NEG) Urine Nitrite Negative (NEG) Urine Bilirubin Negative (NEG) Urine Urobilinogen Dipstick 0.2mg/dL (0.2 mg/dL) Urine Leukocyte Esterase Negative (NEG) Urine RBC 1-2/HPF (0-2) Urine WBC 0/HPF (0-4) Urine Squamous Epithelial Cells Occ/LPF Urine Bacteria 0/HPF (0-FEW) Urine Hyaline Casts Few/HPF Urine Mucus Slight/LPF Glucose (Fingerstick) 196mg/dL (70-99) Iron Level 107ug/dL (65-175) Total Iron Binding Capacity 303ug/dL (250-450) Iron Saturation 35% (15-34) Test 08/03/16 17:17 08/03/16 20:29 08/04/16 03:30 08/04/16 07:40 Glucose (Fingerstick) 220mg/dL (70-99) 230mg/dL (70-99) 136mg/dL (70-99) White Blood Count 5.1x10^3/uL (4.0-11.0) Red Blood Count 4.95x10^6/uL (4.30-5.70) Hemoglobin 14.9g/dL (13.0-17.5) Hematocrit 44.2% (39.0-53.0) Mean Corpuscular Volume 89fL (79-100) Mean Corpuscular Hemoglobin 30pg (25-35) Mean Corpuscular Hemoglobin Concent 34g/dL (31-37) Red Cell Distribution Width 15.8% (11.5-14.5) Platelet Count 102x10^3/uL (140-400) Neutrophils (%) (Auto) 60% (31-73) Lymphocytes (%) (Auto) 18% (24-48) Monocytes (%) (Auto) 10% (0-9) Eosinophils (%) (Auto) 11% (0-3) Basophils (%) (Auto) 1% (0-3) Neutrophils # (Auto) 3.1x10^3uL (1.8-7.7) Lymphocytes # (Auto) 0.9x10^3/uL (1.0-4.8) Monocytes # (Auto) 0.5x10^3/uL (0.0-1.1) Eosinophils # (Auto) 0.6x10^3/uL (0.0-0.7) Basophils # (Auto) 0.1x10^3/uL (0.0-0.2) Erythrocyte Sedimentation Rate 4 (0-15) Sodium Level 145mmol/L (136-145) Potassium Level 4.4mmol/L (3.5-5.1) Chloride Level 108mmol/L (98-107) Carbon Dioxide Level 31mmol/L (21-32) Anion Gap 6 (6-14) Blood Urea Nitrogen 24mg/dL (8-26) Creatinine 1.0mg/dL (0.7-1.3) Estimated GFR (Cockcroft-Gault) 75.7 Glucose Level 114mg/dL (70-99) Calcium Level 9.2mg/dL (8.5-10.1) Total Bilirubin 2.3mg/dL (0.2-1.0) Direct Bilirubin 0.4mg/dL (0.0-0.2) Aspartate Amino Transf (AST/SGOT) 36U/L (15-37) Alanine Aminotransferase (ALT/SGPT) 37U/L (16-63) Alkaline Phosphatase 72U/L (46-116) Ammonia 114mcmol/L (11-34) Total Protein 6.6g/dL (6.4-8.2) Albumin 2.9g/dL (3.4-5.0) Medications Current Medications Ondansetron HCl (Zofran) 4 mg PRN Q8HRS PRN IV NAUSEA/VOMITING; Start 08/03/16 at 13:45; Stop 08/04/16 at 13:44 Morphine Sulfate 2 mg PRN Q2HR PRN IV PAIN; Start 08/03/16 at 13:45; Stop 08/04 at 13:44 Lactobacillus Acidophilus (Bacid, Debbie-Bid) 1 tab DAILY PO ; Start 08/04/16 at 09:00 Rifaximin (Xifaxan) 550 mg Q12HR PO Last administered on 08/03/16t 20:50; Start 08/03/16 at 21:00 Aspirin (Children'S Aspirin) 81 mg DAILYWBKFT PO ; Start 08/04/16 at 08:00 Ferrous Sulfate (Feosol) 325 mg DAILY08 PO ; Start 08/04/16 at 08:00 Furosemide (Lasix) 20 mg BID92 PO ; Start 08/04/16 at 09:00 Linagliptin (Tradjenta) 5 mg DAILY PO ; Start 08/04/16 at 09:00 Metoprolol Tartrate (Lopressor) 25 mg BID PO Last administered on 08/03/16t 20: 50; Start 08/03/16 at 21:00 Sucralfate (Carafate) 1 gm PRN QID PRN PO NAUSEA/VOMITING; Start 08/03/16 at 18 :00 Tamsulosin HCl (Flomax) 0.4 mg DAILY PO ; Start 08/04/16 at 09:00 Ascorbic Acid (Vitamin C) 1,000 mg DAILY PO ; Start 08/04/16 at 09:00 Gabapentin (Neurontin) 1,200 mg BID PO Last administered on 08/03/16 20:50; Start 08/03/16 at 21:00 Glimepiride (Amaryl) 4 mg BIDWMEALS PO ; Start 08/04/16 at 08:00 Insulin Aspart (Novolog) 10 units TIDAC SQ Last administered on 08/03/16 19:40 ; Start 08/03/16 at 18:00 Insulin Detemir (Levemir) 45 units DAILYWLUN SQ ; Start 08/04/16 at 12:00 Multivitamins/ Calcium (Thera M Plus) 1 tab DAILY PO ; Start 08/04/16 at 09:00 Lisinopril (Prinivil) 20 mg DAILY PO ; Start 08/04/16 at 09:00 Vitamin E 400 unit DAILY PO ; Start 08/04/16 at 09:00 Amlodipine Besylate (Norvasc) 10 mg DAILY PO Last administered on 08/03/16 19: 30; Start 08/03/16 at 19:30 Active Scripts Active Reported Metoprolol Tartrate 25 Mg Tablet 1 Tab PO BID92 Ferrous Sulfate 325 Mg Tablet 1 Tab PO DAILY08 Multi-Day Vitamins (Multivitamin) 1 Each Tablet 1 Tab PO DAILY08 Ramipril 10 Mg Capsule 1 Cap PO DAILY08 Novolog (Insulin Aspart) 100 Unit/1 Ml Cartridge 10 Unit SQ TIDAC Levemir (Insulin Detemir) 100 Unit/1 Ml Vial 45 Unit SQ DAILYWLUN Gabapentin 600 Mg Tablet 1,200 Mg PO BID Folbic Tablet (Cyanocobalamin/Fa/Pyridoxine) 1 Each Tablet Unknown Dose PO DAILY Fish Oil ([place]urora-3 Fatty Acids) 500 Mg Capsule.dr 1,000 Mg PO Flomax (Tamsulosin Hcl) 0.4 Mg Cap.er.24h 1 Cap PO DAILY Vitamin C (Ascorbic Acid) 1,000 Mg Tablet.er 1,000 Mg PO DAILY Vitamin E 400 Unit Capsule 400 Unit PO DAILY Carafate (Sucralfate) 1 Gm Tablet 1 Gm PO PRN QID Aspirin 81 Mg Tab.chew 81 Mg PO DAILY Lasix (Furosemide) 20 Mg Tablet 20 Mg PO PRN BID Tradjenta (Linagliptin) 5 Mg Tablet 5 Mg PO DAILY Glimepiride 4 Mg Tablet 4 Mg PO BID94 Vitals/I & O Vital Sign - Last 24 Hours 08/03/16 08/03/16 08/03/16 08/03/16 12:38 13:00 14:00 15:00 Temp 98.5 98.1 98.5 98.1 Pulse 62 56 54 55 Resp 14 16 14 19 B/P 204/80 152/99 168/74 159/109 Pulse Ox 96 94 93 96 O2 Delivery Room Air Room Air Room Air 08/03/16 08/03/16 08/03/16 08/03/16 15:27 17:06 19:00 19:30 Temp 98.1 96.8 98.1 96.8 Pulse 55 63 54 Resp 19 19 B/P 156/109 179/69 152/55 Pulse Ox 96 93 O2 Delivery Room Air Room Air Room Air 08/03/16 08/03/16 08/03/16 08/04/16 20:00 20:50 23:00 03:00 Temp 98.1 97.5 98.1 97.5 Pulse 63 54 53 Resp 20 18 B/P 179/69 152/55 144/56 Pulse Ox 94 94 O2 Delivery Room Air Room Air Room Air 08/04/16 07:20 Temp 97.7 97.7 Pulse 61 Resp 16 B/P 156/63 Pulse Ox 92 O2 Delivery Room Air Intake and Output 08/03/16 08/03/16 08/04/16 15:00 23:00 07:00 Intake Total 300 ml Output Total 750 ml Balance -450 ml JONO GARZA MD Aug 04, 2016 08:45
[2016-08-04] MEDS: GABAPENTIN 400 MG CAPSULE. PO SCH ×2 (09:00→20:59)
[2016-08-04] MEDS: RIFAXIMIN 550 MG TABLET PO SCH ×2 (09:00→20:59)
[2016-08-04] MEDS: FUROSEMIDE 20 MG TABLET PO SCH ×2 (09:00→16:07)
[2016-08-04] MEDS: METOPROLOL TART IMMED RELEASE 25 MG TABLET PO SCH ×2 (09:00→16:08)
--- NOTE | 2016-08-04 10:59 | PDOC ---
Infectious Disease Note ROS ROS GEN: Denies fevers, chills, sweats HEENT: Denies blurred vision, sore throat CV: Denies chest pain RESP: Denies shortness of air, cough GI: Denies n/v/d NEURO: Denies confusion, dizziness MSK: Denies weakness, joint pain/swelling Vital Sign Vital Signs Vital Signs Date Time Temp Pulse Resp B/P Pulse Ox O2 Delivery O2 Flow Rate FiO2 08/04/16 07:20 97.7 61 16 156/63 92 Room Air 97.7 Physical Exam PHYSICAL EXAM GENERAL: NAD, Alert HEENT: PERRL, OC/OP NECK: Supple, no JVD, no LN LUNGS: Clear HEART: S1S2, no gallop, no murmur ABD: Soft, NT, no organomegaly, no rebound EXT: No edema, no cyanosis [employer]: Alert, oriented x 3, no focal neurologic deficit SKIN: No rash IV: ok Labs Lab Laboratory Tests Test 08/03/16 12:00 08/03/16 12:04 08/03/16 12:19 08/03/16 15:35 White Blood Count 5.2x10^3/uL (4.0-11.0) Red Blood Count 5.21x10^6/uL (4.30-5.70) Hemoglobin 15.5g/dL (13.0-17.5) Hematocrit 46.6% (39.0-53.0) Mean Corpuscular Volume 89fL (79-100) Mean Corpuscular Hemoglobin 30pg (25-35) Mean Corpuscular Hemoglobin Concent 33g/dL (31-37) Red Cell Distribution Width 15.0% (11.5-14.5) Platelet Count 90x10^3/uL (140-400) Neutrophils (%) (Auto) 71% (31-73) Lymphocytes (%) (Auto) 14% (24-48) Monocytes (%) (Auto) 8% (0-9) Eosinophils (%) (Auto) 6% (0-3) Basophils (%) (Auto) 1% (0-3) Neutrophils # (Auto) 3.7x10^3uL (1.8-7.7) Lymphocytes # (Auto) 0.7x10^3/uL (1.0-4.8) Monocytes # (Auto) 0.4x10^3/uL (0.0-1.1) Eosinophils # (Auto) 0.3x10^3/uL (0.0-0.7) Basophils # (Auto) 0.1x10^3/uL (0.0-0.2) Sodium Level 140mmol/L (136-145) Potassium Level 5.0mmol/L (3.5-5.1) Chloride Level 105mmol/L (98-107) Carbon Dioxide Level 32mmol/L (21-32) Anion Gap 3 (6-14) Blood Urea Nitrogen 23mg/dL (8-26) Creatinine 1.0mg/dL (0.7-1.3) Estimated GFR (Cockcroft-Gault) 75.7 Glucose Level 232mg/dL (70-99) Calcium Level 9.6mg/dL (8.5-10.1) Total Bilirubin 2.2mg/dL (0.2-1.0) Direct Bilirubin 0.4mg/dL (0.0-0.2) Aspartate Amino Transf (AST/SGOT) 45U/L (15-37) Alanine Aminotransferase (ALT/SGPT) 43U/L (16-63) Alkaline Phosphatase 78U/L (46-116) Ammonia 157mcmol/L (11-34) Troponin I Quantitative 0.017ng/mL (0.000-0.055) FX-Miq-D-Type Natriuretic Peptide 72pg/mL (0-124) Total Protein 6.3g/dL (6.4-8.2) Albumin 3.2g/dL (3.4-5.0) Lipase 126U/L (73-393) Urine Collection Type Void Urine Color Yellow Urine Clarity Clear Urine pH 6.0 Urine Specific [place] 1.015 Urine Protein 30mg/dL (NEG-TRACE) Urine Glucose (UA) Negativemg/dL (NEG) Urine Ketones (Stick) Negativemg/dL (NEG) Urine Blood Small (NEG) Urine Nitrite Negative (NEG) Urine Bilirubin Negative (NEG) Urine Urobilinogen Dipstick 0.2mg/dL (0.2 mg/dL) Urine Leukocyte Esterase Negative (NEG) Urine RBC 1-2/HPF (0-2) Urine WBC 0/HPF (0-4) Urine Squamous Epithelial Cells Occ/LPF Urine Bacteria 0/HPF (0-FEW) Urine Hyaline Casts Few/HPF Urine Mucus Slight/LPF Glucose (Fingerstick) 196mg/dL (70-99) Iron Level 107ug/dL (65-175) Total Iron Binding Capacity 303ug/dL (250-450) Iron Saturation 35% (15-34) Test 08/03/16 17:17 08/03/16 20:29 08/04/16 03:30 08/04/16 07:40 Glucose (Fingerstick) 220mg/dL (70-99) 230mg/dL (70-99) 136mg/dL (70-99) White Blood Count 5.1x10^3/uL (4.0-11.0) Red Blood Count 4.95x10^6/uL (4.30-5.70) Hemoglobin 14.9g/dL (13.0-17.5) Hematocrit 44.2% (39.0-53.0) Mean Corpuscular Volume 89fL (79-100) Mean Corpuscular Hemoglobin 30pg (25-35) Mean Corpuscular Hemoglobin Concent 34g/dL (31-37) Red Cell Distribution Width 15.8% (11.5-14.5) Platelet Count 102x10^3/uL (140-400) Neutrophils (%) (Auto) 60% (31-73) Lymphocytes (%) (Auto) 18% (24-48) Monocytes (%) (Auto) 10% (0-9) Eosinophils (%) (Auto) 11% (0-3) Basophils (%) (Auto) 1% (0-3) Neutrophils # (Auto) 3.1x10^3uL (1.8-7.7) Lymphocytes # (Auto) 0.9x10^3/uL (1.0-4.8) Monocytes # (Auto) 0.5x10^3/uL (0.0-1.1) Eosinophils # (Auto) 0.6x10^3/uL (0.0-0.7) Basophils # (Auto) 0.1x10^3/uL (0.0-0.2) Erythrocyte Sedimentation Rate 4 (0-15) Sodium Level 145mmol/L (136-145) Potassium Level 4.4mmol/L (3.5-5.1) Chloride Level 108mmol/L (98-107) Carbon Dioxide Level 31mmol/L (21-32) Anion Gap 6 (6-14) Blood Urea Nitrogen 24mg/dL (8-26) Creatinine 1.0mg/dL (0.7-1.3) Estimated GFR (Cockcroft-Gault) 75.7 Glucose Level 114mg/dL (70-99) Calcium Level 9.2mg/dL (8.5-10.1) Total Bilirubin 2.3mg/dL (0.2-1.0) Direct Bilirubin 0.4mg/dL (0.0-0.2) Aspartate Amino Transf (AST/SGOT) 36U/L (15-37) Alanine Aminotransferase (ALT/SGPT) 37U/L (16-63) Alkaline Phosphatase 72U/L (46-116) Ammonia 114mcmol/L (11-34) Total Protein 6.6g/dL (6.4-8.2) Albumin 2.9g/dL (3.4-5.0) Objective Assessment Weakness Elevated Ammonia Dm with neuropathy HTN ? cirrhosis Plan Plan of Care Would consider decreasing Neurontin dose No need for abx at this time Await further GI/neuro eval Thank you D/w # [id number] LUISA BAUMAN MD Aug 04, 2016 10:59
[2016-08-04 11:00] VITALS: BP 172/54
--- NOTE | 2016-08-04 12:10 | PDOC ---
Subjective: Subjective: Awaiting lumbar puncture, has been NPO, would like to eat. No GI complaints. Feels a little less weak today. Objective: Vital Signs: Vital Signs Date Time Temp Pulse Resp B/P Pulse Ox O2 Delivery O2 Flow Rate FiO2 08/04/16 11:00 97.7 59 16 172/54 95 Room Air 97.7 Labs: Laboratory Tests Test 08/03/16 12:19 08/03/16 15:35 08/03/16 17:17 08/03/16 20:29 Glucose (Fingerstick) 196mg/dL 220mg/dL 230mg/dL Iron Level 107ug/dL Total Iron Binding Capacity 303ug/dL Iron Saturation 35% Test 08/04/16 03:30 08/04/16 07:40 08/04/16 10:56 White Blood Count 5.1x10^3/uL Red Blood Count 4.95x10^6/uL Hemoglobin 14.9g/dL Hematocrit 44.2% Mean Corpuscular Volume 89fL Mean Corpuscular Hemoglobin 30pg Mean Corpuscular Hemoglobin Concent 34g/dL Red Cell Distribution Width 15.8% Platelet Count 102x10^3/uL Neutrophils (%) (Auto) 60% Lymphocytes (%) (Auto) 18% Monocytes (%) (Auto) 10% Eosinophils (%) (Auto) 11% Basophils (%) (Auto) 1% Neutrophils # (Auto) 3.1x10^3uL Lymphocytes # (Auto) 0.9x10^3/uL Monocytes # (Auto) 0.5x10^3/uL Eosinophils # (Auto) 0.6x10^3/uL Basophils # (Auto) 0.1x10^3/uL Erythrocyte Sedimentation Rate 4 Sodium Level 145mmol/L Potassium Level 4.4mmol/L Chloride Level 108mmol/L Carbon Dioxide Level 31mmol/L Anion Gap 6 Blood Urea Nitrogen 24mg/dL Creatinine 1.0mg/dL Estimated GFR (Cockcroft-Gault) 75.7 Glucose Level 114mg/dL Calcium Level 9.2mg/dL Total Bilirubin 2.3mg/dL Direct Bilirubin 0.4mg/dL Aspartate Amino Transf (AST/SGOT) 36U/L Alanine Aminotransferase (ALT/SGPT) 37U/L Alkaline Phosphatase 72U/L Ammonia 114mcmol/L Total Protein 6.6g/dL Albumin 2.9g/dL Glucose (Fingerstick) 136mg/dL 183mg/dL PE: GEN: NAD, up to chair LUNGS: CTAB HEART: RRR ABD: NABS, S/ND/NT NEURO/PSYCH: A & O 3 OTHER: present A/P: Weakness, cognitive changes - recurrent -apparent since cellulitis/sepsis in 02/2016, improved w/ antibiotics -followed by ID, neuro Elevated bilirubin, hyperammonemia, chronic portal vein thrombosis -splenomegaly and ?portal hypertension on previous CT -Hep B antigen and C antibody previously neg, iron studies as above -h/o fatty liver -GUILLAUME, AMA, ASMA, hFE, AFP pending -now on Xifaxan Chronic diarrhea -recently improved w/ probiotics -- LP today. Will ask hematology to see re: roll of anticoagulation w/ chronic thrombosis. Continue Xifaxan. FERNANDEZ CHEEK Aug 04, 2016 12:10
[2016-08-04] MEDS: INSULIN DETEMIR 300 UNITS/3 ML INSULN.PEN. SQ SCH (12:49)
[2016-08-04 13:22] LABS: FOLIC ACID >19.9 ng/mL (>3.0)
--- NOTE | 2016-08-04 13:41 | PDOC ---
Provider Note Provider Note Onc consult dictated- [id number] Chronic portal venous thrombosis, asymptomatic, unchanged since 03/03- No anticoagulation needed. Thrombocytopenia, related to splenomegaly and liver dysfunction. IVONE WILKINSON DO Aug 04, 2016 13:41
--- NOTE | 2016-08-04 14:11 | PDOC ---
Provider Note Provider Note The fluoro guided LP was performed utilizing a 25 g Puente needle without difficulty. 11 cc of CSF was removed and sent to the lab for appropriate studies. The patient tolerated the procedure well and was returned to the floor in good condition. CELIA RICHARDSON MD Aug 04, 2016 14:11
--- NOTE | 2016-08-04 14:39 | PDOC ---
PROGRESS NOTES Chief Complaint Chief Complaint chronic cognitive changes, possible 2/2 hepatic dz with high ammonia DM neuropathy dm2 on insulin unsteady gait bl leg weakness Elevated bili, hyperammonemia, chronic portal vein thrombosis Chronic diarrhea thrombocytopenia, 2/2 liver dz with splenmegaly HTN plan: 1. fu with gi, neuro, id, onco 2. LP 08/04 ,result pending 3many labs pending for liver and rheum dz 4. CONT current meds for htn on xifaxan, add lactulose prn ammonia level daily PTOT History of Present Illness History of Present Illness feels ok, saying chornic cognitive changes, never seen GI before, no cirrhosis, better with abx (not sure why) Vitals Vitals Vital Signs Date Time Temp Pulse Resp B/P Pulse Ox O2 Delivery O2 Flow Rate FiO2 08/04/16 11:00 97.7 59 16 172/54 95 Room Air 97.7 Physical Exam General: Alert, Oriented X3, Cooperative Heart: Regular rate, Normal S1 Lungs: Clear, Other Abdomen: Normal bowel sounds, Soft Extremities: No clubbing, No cyanosis Skin: No rashes Labs LABS Laboratory Tests Test 08/03/16 15:35 08/03/16 17:17 08/03/16 20:29 08/04/16 03:30 Iron Level 107ug/dL (65-175) Total Iron Binding Capacity 303ug/dL (250-450) Iron Saturation 35% (15-34) Tumor Marker Alpha Fetoprotein 1.2ng/mL (0.0-8.3) Glucose (Fingerstick) 220mg/dL (70-99) 230mg/dL (70-99) White Blood Count 5.1x10^3/uL (4.0-11.0) Red Blood Count 4.95x10^6/uL (4.30-5.70) Hemoglobin 14.9g/dL (13.0-17.5) Hematocrit 44.2% (39.0-53.0) Mean Corpuscular Volume 89fL (79-100) Mean Corpuscular Hemoglobin 30pg (25-35) Mean Corpuscular Hemoglobin Concent 34g/dL (31-37) Red Cell Distribution Width 15.8% (11.5-14.5) Platelet Count 102x10^3/uL (140-400) Neutrophils (%) (Auto) 60% (31-73) Lymphocytes (%) (Auto) 18% (24-48) Monocytes (%) (Auto) 10% (0-9) Eosinophils (%) (Auto) 11% (0-3) Basophils (%) (Auto) 1% (0-3) Neutrophils # (Auto) 3.1x10^3uL (1.8-7.7) Lymphocytes # (Auto) 0.9x10^3/uL (1.0-4.8) Monocytes # (Auto) 0.5x10^3/uL (0.0-1.1) Eosinophils # (Auto) 0.6x10^3/uL (0.0-0.7) Basophils # (Auto) 0.1x10^3/uL (0.0-0.2) Erythrocyte Sedimentation Rate 4 (0-15) Sodium Level 145mmol/L (136-145) Potassium Level 4.4mmol/L (3.5-5.1) Chloride Level 108mmol/L (98-107) Carbon Dioxide Level 31mmol/L (21-32) Anion Gap 6 (6-14) Blood Urea Nitrogen 24mg/dL (8-26) Creatinine 1.0mg/dL (0.7-1.3) Estimated GFR (Cockcroft-Gault) 75.7 Glucose Level 114mg/dL (70-99) Calcium Level 9.2mg/dL (8.5-10.1) Total Bilirubin 2.3mg/dL (0.2-1.0) Direct Bilirubin 0.4mg/dL (0.0-0.2) Aspartate Amino Transf (AST/SGOT) 36U/L (15-37) Alanine Aminotransferase (ALT/SGPT) 37U/L (16-63) Alkaline Phosphatase 72U/L (46-116) Ammonia 114mcmol/L (11-34) Total Protein 6.6g/dL (6.4-8.2) Albumin 2.9g/dL (3.4-5.0) Vitamin B12 Level 860pg/mL (211-946) Folic Acid (LAB) >19.9ng/mL (>3.0) Test 08/04/16 07:40 08/04/16 10:56 Glucose (Fingerstick) 136mg/dL (70-99) 183mg/dL (70-99) Review of Systems Review of Systems no fever, chills, sob or chest pain Assessment and Plan Assessmemt and Plan Problems Medical Problems: (1) Hyperbilirubinemia Status: Acute (2) Lower extremity weakness Status: Acute (3) Lower extremity weakness Status: Acute Problems: Comment Review of Relevant I have reviewed the following items kailash (where applicable) has been applied. Labs Laboratory Tests Test 08/03/16 12:00 08/03/16 12:04 08/03/16 12:19 08/03/16 15:35 White Blood Count 5.2x10^3/uL (4.0-11.0) Red Blood Count 5.21x10^6/uL (4.30-5.70) Hemoglobin 15.5g/dL (13.0-17.5) Hematocrit 46.6% (39.0-53.0) Mean Corpuscular Volume 89fL (79-100) Mean Corpuscular Hemoglobin 30pg (25-35) Mean Corpuscular Hemoglobin Concent 33g/dL (31-37) Red Cell Distribution Width 15.0% (11.5-14.5) Platelet Count 90x10^3/uL (140-400) Neutrophils (%) (Auto) 71% (31-73) Lymphocytes (%) (Auto) 14% (24-48) Monocytes (%) (Auto) 8% (0-9) Eosinophils (%) (Auto) 6% (0-3) Basophils (%) (Auto) 1% (0-3) Neutrophils # (Auto) 3.7x10^3uL (1.8-7.7) Lymphocytes # (Auto) 0.7x10^3/uL (1.0-4.8) Monocytes # (Auto) 0.4x10^3/uL (0.0-1.1) Eosinophils # (Auto) 0.3x10^3/uL (0.0-0.7) Basophils # (Auto) 0.1x10^3/uL (0.0-0.2) Sodium Level 140mmol/L (136-145) Potassium Level 5.0mmol/L (3.5-5.1) Chloride Level 105mmol/L (98-107) Carbon Dioxide Level 32mmol/L (21-32) Anion Gap 3 (6-14) Blood Urea Nitrogen 23mg/dL (8-26) Creatinine 1.0mg/dL (0.7-1.3) Estimated GFR (Cockcroft-Gault) 75.7 Glucose Level 232mg/dL (70-99) Calcium Level 9.6mg/dL (8.5-10.1) Total Bilirubin 2.2mg/dL (0.2-1.0) Direct Bilirubin 0.4mg/dL (0.0-0.2) Aspartate Amino Transf (AST/SGOT) 45U/L (15-37) Alanine Aminotransferase (ALT/SGPT) 43U/L (16-63) Alkaline Phosphatase 78U/L (46-116) Ammonia 157mcmol/L (11-34) Troponin I Quantitative 0.017ng/mL (0.000-0.055) VJ-Nql-N-Type Natriuretic Peptide 72pg/mL (0-124) Total Protein 6.3g/dL (6.4-8.2) Albumin 3.2g/dL (3.4-5.0) Lipase 126U/L (73-393) Urine Collection Type Void Urine Color Yellow Urine Clarity Clear Urine pH 6.0 Urine Specific [place] 1.015 Urine Protein 30mg/dL (NEG-TRACE) Urine Glucose (UA) Negativemg/dL (NEG) Urine Ketones (Stick) Negativemg/dL (NEG) Urine Blood Small (NEG) Urine Nitrite Negative (NEG) Urine Bilirubin Negative (NEG) Urine Urobilinogen Dipstick 0.2mg/dL (0.2 mg/dL) Urine Leukocyte Esterase Negative (NEG) Urine RBC 1-2/HPF (0-2) Urine WBC 0/HPF (0-4) Urine Squamous Epithelial Cells Occ/LPF Urine Bacteria 0/HPF (0-FEW) Urine Hyaline Casts Few/HPF Urine Mucus Slight/LPF Glucose (Fingerstick) 196mg/dL (70-99) Iron Level 107ug/dL (65-175) Total Iron Binding Capacity 303ug/dL (250-450) Iron Saturation 35% (15-34) Tumor Marker Alpha Fetoprotein 1.2ng/mL (0.0-8.3) Test 08/03/16 17:17 08/03/16 20:29 08/04/16 03:30 08/04/16 07:40 Glucose (Fingerstick) 220mg/dL (70-99) 230mg/dL (70-99) 136mg/dL (70-99) White Blood Count 5.1x10^3/uL (4.0-11.0) Red Blood Count 4.95x10^6/uL (4.30-5.70) Hemoglobin 14.9g/dL (13.0-17.5) Hematocrit 44.2% (39.0-53.0) Mean Corpuscular Volume 89fL (79-100) Mean Corpuscular Hemoglobin 30pg (25-35) Mean Corpuscular Hemoglobin Concent 34g/dL (31-37) Red Cell Distribution Width 15.8% (11.5-14.5) Platelet Count 102x10^3/uL (140-400) Neutrophils (%) (Auto) 60% (31-73) Lymphocytes (%) (Auto) 18% (24-48) Monocytes (%) (Auto) 10% (0-9) Eosinophils (%) (Auto) 11% (0-3) Basophils (%) (Auto) 1% (0-3) Neutrophils # (Auto) 3.1x10^3uL (1.8-7.7) Lymphocytes # (Auto) 0.9x10^3/uL (1.0-4.8) Monocytes # (Auto) 0.5x10^3/uL (0.0-1.1) Eosinophils # (Auto) 0.6x10^3/uL (0.0-0.7) Basophils # (Auto) 0.1x10^3/uL (0.0-0.2) Erythrocyte Sedimentation Rate 4 (0-15) Sodium Level 145mmol/L (136-145) Potassium Level 4.4mmol/L (3.5-5.1) Chloride Level 108mmol/L (98-107) Carbon Dioxide Level 31mmol/L (21-32) Anion Gap 6 (6-14) Blood Urea Nitrogen 24mg/dL (8-26) Creatinine 1.0mg/dL (0.7-1.3) Estimated GFR (Cockcroft-Gault) 75.7 Glucose Level 114mg/dL (70-99) Calcium Level 9.2mg/dL (8.5-10.1) Total Bilirubin 2.3mg/dL (0.2-1.0) Direct Bilirubin 0.4mg/dL (0.0-0.2) Aspartate Amino Transf (AST/SGOT) 36U/L (15-37) Alanine Aminotransferase (ALT/SGPT) 37U/L (16-63) Alkaline Phosphatase 72U/L (46-116) Ammonia 114mcmol/L (11-34) Total Protein 6.6g/dL (6.4-8.2) Albumin 2.9g/dL (3.4-5.0) Vitamin B12 Level 860pg/mL (211-946) Folic Acid (LAB) >19.9ng/mL (>3.0) Test 08/04/16 10:56 Glucose (Fingerstick) 183mg/dL (70-99) Laboratory Tests Test 08/03/16 15:35 08/03/16 17:17 08/03/16 20:29 08/04/16 03:30 Iron Level 107ug/dL (65-175) Total Iron Binding Capacity 303ug/dL (250-450) Iron Saturation 35% (15-34) Tumor Marker Alpha Fetoprotein 1.2ng/mL (0.0-8.3) Glucose (Fingerstick) 220mg/dL (70-99) 230mg/dL (70-99) White Blood Count 5.1x10^3/uL (4.0-11.0) Red Blood Count 4.95x10^6/uL (4.30-5.70) Hemoglobin 14.9g/dL (13.0-17.5) Hematocrit 44.2% (39.0-53.0) Mean Corpuscular Volume 89fL (79-100) Mean Corpuscular Hemoglobin 30pg (25-35) Mean Corpuscular Hemoglobin Concent 34g/dL (31-37) Red Cell Distribution Width 15.8% (11.5-14.5) Platelet Count 102x10^3/uL (140-400) Neutrophils (%) (Auto) 60% (31-73) Lymphocytes (%) (Auto) 18% (24-48) Monocytes (%) (Auto) 10% (0-9) Eosinophils (%) (Auto) 11% (0-3) Basophils (%) (Auto) 1% (0-3) Neutrophils # (Auto) 3.1x10^3uL (1.8-7.7) Lymphocytes # (Auto) 0.9x10^3/uL (1.0-4.8) Monocytes # (Auto) 0.5x10^3/uL (0.0-1.1) Eosinophils # (Auto) 0.6x10^3/uL (0.0-0.7) Basophils # (Auto) 0.1x10^3/uL (0.0-0.2) Erythrocyte Sedimentation Rate 4 (0-15) Sodium Level 145mmol/L (136-145) Potassium Level 4.4mmol/L (3.5-5.1) Chloride Level 108mmol/L (98-107) Carbon Dioxide Level 31mmol/L (21-32) Anion Gap 6 (6-14) Blood Urea Nitrogen 24mg/dL (8-26) Creatinine 1.0mg/dL (0.7-1.3) Estimated GFR (Cockcroft-Gault) 75.7 Glucose Level 114mg/dL (70-99) Calcium Level 9.2mg/dL (8.5-10.1) Total Bilirubin 2.3mg/dL (0.2-1.0) Direct Bilirubin 0.4mg/dL (0.0-0.2) Aspartate Amino Transf (AST/SGOT) 36U/L (15-37) Alanine Aminotransferase (ALT/SGPT) 37U/L (16-63) Alkaline Phosphatase 72U/L (46-116) Ammonia 114mcmol/L (11-34) Total Protein 6.6g/dL (6.4-8.2) Albumin 2.9g/dL (3.4-5.0) Vitamin B12 Level 860pg/mL (211-946) Folic Acid (LAB) >19.9ng/mL (>3.0) Test 08/04/16 07:40 08/04/16 10:56 Glucose (Fingerstick) 136mg/dL (70-99) 183mg/dL (70-99) Medications Current Medications Ondansetron HCl (Zofran) 4 mg PRN Q8HRS PRN IV NAUSEA/VOMITING; Start 08/03/16 at 13:45; Stop 08/04/16 at 13:44; Status DC Morphine Sulfate 2 mg PRN Q2HR PRN IV PAIN; Start 08/03/16 at 13:45; Stop 08/04 at 13:44; Status DC Lactobacillus Acidophilus (Bacid, Debbie-Bid) 1 tab DAILY PO ; Start 08/04/16 at 09:00 Rifaximin (Xifaxan) 550 mg Q12HR PO Last administered on 08/03/16 20:50; Start 08/03/16 at 21:00 Aspirin (Children'S Aspirin) 81 mg DAILYWBKFT PO ; Start 08/04/16 at 08:00 Ferrous Sulfate (Feosol) 325 mg DAILY08 PO ; Start 08/04/16 at 08:00 Furosemide (Lasix) 20 mg BID92 PO ; Start 08/04/16 at 09:00 Linagliptin (Tradjenta) 5 mg DAILY PO ; Start 08/04/16 at 09:00 Metoprolol Tartrate (Lopressor) 25 mg BID PO Last administered on 08/03/16 20: 50; Start 08/03/16 at 21:00 Sucralfate (Carafate) 1 gm PRN QID PRN PO NAUSEA/VOMITING; Start 08/03/16 at 18 :00 Tamsulosin HCl (Flomax) 0.4 mg DAILY PO ; Start 08/04/16 at 09:00 Ascorbic Acid (Vitamin C) 1,000 mg DAILY PO ; Start 08/04/16 at 09:00 Gabapentin (Neurontin) 1,200 mg BID PO Last administered on 08/03/16 20:50; Start 08/03/16 at 21:00 Glimepiride (Amaryl) 4 mg BIDWMEALS PO ; Start 08/04/16 at 08:00 Insulin Aspart (Novolog) 10 units TIDAC SQ Last administered on 08/03/16 19:40 ; Start 08/03/16 at 18:00 Insulin Detemir (Levemir) 45 units DAILYWLUN SQ Last administered on 08/04/16 12:49; Start 08/04/16 at 12:00 Multivitamins/ Calcium (Thera M Plus) 1 tab DAILY PO ; Start 08/04/16 at 09:00 Lisinopril (Prinivil) 20 mg DAILY PO ; Start 08/04/16 at 09:00 Vitamin E 400 unit DAILY PO ; Start 08/04/16 at 09:00 Amlodipine Besylate (Norvasc) 10 mg DAILY PO Last administered on 08/03/16t 19: 30; Start 08/03/16 at 19:30 Active Scripts Active Reported Metoprolol Tartrate 25 Mg Tablet 1 Tab PO BID92 Ferrous Sulfate 325 Mg Tablet 1 Tab PO DAILY08 Multi-Day Vitamins (Multivitamin) 1 Each Tablet 1 Tab PO DAILY08 Ramipril 10 Mg Capsule 1 Cap PO DAILY08 Novolog (Insulin Aspart) 100 Unit/1 Ml Cartridge 10 Unit SQ TIDAC Levemir (Insulin Detemir) 100 Unit/1 Ml Vial 45 Unit SQ DAILYWLUN Gabapentin 600 Mg Tablet 1,200 Mg PO BID Folbic Tablet (Cyanocobalamin/Fa/Pyridoxine) 1 Each Tablet Unknown Dose PO DAILY Fish Oil ([place]-3 Fatty Acids) 500 Mg Capsule.dr 1,000 Mg PO Flomax (Tamsulosin Hcl) 0.4 Mg Cap.er.24h 1 Cap PO DAILY Vitamin C (Ascorbic Acid) 1,000 Mg Tablet.er 1,000 Mg PO DAILY Vitamin E 400 Unit Capsule 400 Unit PO DAILY Carafate (Sucralfate) 1 Gm Tablet 1 Gm PO PRN QID Aspirin 81 Mg Tab.chew 81 Mg PO DAILY Lasix (Furosemide) 20 Mg Tablet 20 Mg PO PRN BID Tradjenta (Linagliptin) 5 Mg Tablet 5 Mg PO DAILY Glimepiride 4 Mg Tablet 4 Mg PO BID94 Vitals/I & O Vital Sign - Last 24 Hours 08/03/16 08/03/16 08/03/16 08/03/16 15:00 15:27 17:06 19:00 Temp 98.1 98.1 96.8 98.1 98.1 96.8 Pulse 55 55 63 Resp 19 19 19 B/P 159/109 156/109 179/69 Pulse Ox 96 96 93 O2 Delivery Room Air Room Air Room Air Room Air 08/03/16 08/03/16 08/03/16 08/03/16 19:30 20:00 20:50 23:00 Temp 98.1 98.1 Pulse 54 63 54 Resp 20 B/P 152/55 179/69 152/55 Pulse Ox 94 O2 Delivery Room Air Room Air 08/04/16 08/04/16 08/04/16 03:00 07:20 11:00 Temp 97.5 97.7 97.7 97.5 97.7 97.7 Pulse 53 61 59 Resp 18 16 16 B/P 144/56 156/63 172/54 Pulse Ox 94 92 95 O2 Delivery Room Air Room Air Room Air Intake and Output 08/03/16 08/03/16 08/04/16 15:00 23:00 07:00 Intake Total 300 ml Output Total 750 ml Balance -450 ml JUMA LIVINGSTON MD Aug 04, 2016 14:39
[2016-08-04] MEDS ORDERED: LACTULOSE 20 GM/30 ML SOLUTION. PO PRN (14:45)
[2016-08-04] MEDS ORDERED: ACETAMINOPHEN 325 MG TABLET. PO PRN (14:45)
[2016-08-04 15:00] VITALS: BP 172/67
[2016-08-04 15:12] LABS: CSF GLUCOSE 67 mg/dL (37-70); CSF PROTEIN 69.7 mg/dL (15.0-45.0)
--- NOTE | 2016-08-04 15:42 | RAD ---
Fluoroscopically guided lumbar puncture, 08/04/2016: History: Peripheral neuropathy, weakness Under local anesthesia, aseptic conditions and fluoroscopic guidance a lumbar puncture was performed at the mid L3 level utilizing a 25-gauge Umair spinal needle. Good clear CSF flow was obtained. A total of 11 cc of CSF was removed and sent to the lab for appropriate studies. The spinal needle was then removed and hemostasis obtained. 1.2 minutes of fluoroscopy time was utilized. One fluoroscopic spot image was recorded. The patient tolerated the procedure well and was returned to the floor in good condition.
[2016-08-04] MEDS: FERROUS SULFATE 325 MG TABLET PO SCH (16:05)
[2016-08-04] MEDS: ASPIRIN 81 MG TAB.CHEW PO SCH (16:05)
[2016-08-04] MEDS: LACTOBACILLUS ACIDOPH & BULGAR 1 TABLET. PO SCH (16:05)
[2016-08-04] MEDS: ASCORBIC ACID 500 MG TABLET PO SCH (16:06)
[2016-08-04] MEDS: AMLODIPINE BESYLATE 10 MG TABLET PO SCH (16:06)
[2016-08-04] MEDS: VITAMIN E 200 UNIT CAPSULE. PO SCH (16:06)
[2016-08-04] MEDS: LINAGLIPTIN 5 MG TABLET PO SCH (16:07)
[2016-08-04] MEDS: LISINOPRIL 20 MG TABLET PO SCH (16:07)
[2016-08-04] MEDS: TAMSULOSIN 0.4 MG CAP.ER.24H. PO SCH (16:07)
[2016-08-04] MEDS: MULTIVITAMIN with MINERAL TABLET. PO SCH (16:08)
[2016-08-04 16:30] LABS: CSF CLARITY CLEAR; CSF COLOR COLORLESS
[2016-08-04 19:00] VITALS: BP 144/51
[2016-08-04 23:11] VITALS: BP 143/56
[2016-08-05 03:00] VITALS: BP 144/55
[2016-08-05 06:03] LABS: BASO # 0.1 x10^3/uL (0.0-0.2); BASO % 1 % (0-3); EOS % 4 % (0-3); HEMATOCRIT 46.3 % (39.0-53.0); HEMOGLOBIN 15.5 g/dL (13.0-17.5); LYMPH # 0.8 x10^3/uL (1.0-4.8); LYMPH % 15 % (24-48); MEAN CORPUSCULAR HEMOGLOBIN 30 pg (25-35); MEAN CORPUSCULAR HGB CONC 34 g/dL (31-37); MEAN CORPUSCULAR VOLUME 89 fL (79-100); MONO % 10 % (0-9); NEUT % 70 % (31-73); PLATELET COUNT 97 x10^3/uL (140-400); RED BLOOD COUNT 5.19 x10^6/uL (4.30-5.70); RED CELL DISTRIBUTION WIDTH 15.4 % (11.5-14.5); WHITE BLOOD COUNT 5.1 x10^3/uL (4.0-11.0)
[2016-08-05 06:23] LABS: CALCIUM 9.2 mg/dL (8.5-10.1); CREATININE 0.9 mg/dL (0.7-1.3); GFR 85.5; POTASSIUM 4.3 mmol/L (3.5-5.1)
[2016-08-05 07:14] VITALS: BP 155/59
[2016-08-05] MEDS: INSULIN ASPART 300 UNITS/3 ML INSULN.PEN SQ SCH ×2 (07:30→13:35)
[2016-08-05] MEDS: GLIMEPIRIDE 2 MG TABLET PO SCH (08:00)
--- NOTE | 2016-08-05 08:01 | CONS ---
DATE OF CONSULTATION: 08/04/2016 REFERRING PROVIDER: BRYN Rodriguez. REASON FOR CONSULTATION: Chronic portal venous thrombosis. HISTORY OF PRESENT ILLNESS: The patient is a 61-year-old male who has had recent lower extremity cellulitis and sepsis with antibiotics intermittently recently. He presented to the hospital with numbness in his lower extremities and diffuse weakness. During part of that evaluation, he was noted to have an elevated bilirubin of 2.3 with an ammonia level of 114. GI was consulted and an abdominal ultrasound was completed which revealed a chronic portal venous thrombosis, also present in 02/2016. He has not had any abdominal pain. His platelet count has been running 90-100 since 02/2016 as well. Hepatitis testing was previously unremarkable. We are consulted for the possibility of anticoagulation. PAST MEDICAL HISTORY: Diabetes, hypertension, neuropathy, sepsis in 02/2016, peptic ulcer disease 10 years ago, stroke, fatty liver, osteoarthritis, chronic diarrhea, morbid obesity. PAST SURGICAL HISTORY: Cholecystectomy in 12/2015. FAMILY HISTORY: Diabetes. SOCIAL HISTORY: He is retired, . Denies any tobacco, alcohol or drug use, though he is exposed to secondhand smoke in their house. ALLERGIES: No known drug allergies. CURRENT MEDICATIONS: Norvasc, vitamin C, aspirin, iron, Lasix, Neurontin, glimepiride, NovoLog, Levemir, lactobacillus, linagliptin, lisinopril, metoprolol, morphine, multivitamin, Zofran, Xifaxan, sucralfate, Flomax, vitamin E. REVIEW OF SYSTEMS: Ten point review of systems completed and unremarkable with the exception of the persistent weakness, numbness, confusion intermittently, chronic diarrhea. He has had no abdominal pain. PHYSICAL EXAMINATION: VITAL SIGNS: Temperature 97.7, pulse 59, respiratory rate 16, blood pressure 172/54, 95% O2 on room air. GENERAL: He is alert and oriented, morbidly obese and in no apparent distress. HEENT: Extraocular muscle strength is intact. No scleral icterus. Mucous membranes are moist. CARDIOVASCULAR: Heart is regular in rhythm and rate. LUNGS: Clear to auscultation bilaterally. ABDOMEN: Obese, prohibiting evaluation for organomegaly. No tenderness is present. EXTREMITIES: No edema. NEUROLOGIC: No confusion is present at this time. There are no focal deficits. IMAGING AND LABORATORY DATA: CBC reviewed with platelet count 90-102 since 02/2016. CMP notable for bilirubin 2.3, albumin 2.9. Ammonia level 114, AFP 1.2. B12 and folic acid are normal. Iron studies unremarkable. CT head and chest x-ray unremarkable. Abdominal ultrasound with chronic portal venous thrombosis also noted in 02/2016. ASSESSMENT AND PLAN: The patient is a 61-year-old male with the following medical problems: 1. Chronic portal venous thrombosis, asymptomatic and unchanged since 02/2016. Therefore, he does not need long-term anticoagulation. We discussed that these clots can sometimes occur in patients with chronic liver issues. Unless he develops significant abdominal pain, he does not need blood thinners. 2. Thrombocytopenia related to the splenomegaly, related to the underlying liver dysfunction. GI is following. Thank you for allowing me to participate in his care. Please call with any further questions. At this time, he does not need long-term hematology followup. Discussed with BRYN Rodriguez. IVONE WILKINSON DO DR: STALIN/carlos eduardo JOB#: [id number] / [id number]
[2016-08-05] MEDS: AMLODIPINE BESYLATE 10 MG TABLET PO SCH (08:10)
[2016-08-05] MEDS: RIFAXIMIN 550 MG TABLET PO SCH (08:11)
[2016-08-05] MEDS: LISINOPRIL 20 MG TABLET PO SCH (08:11)
[2016-08-05] MEDS: FERROUS SULFATE 325 MG TABLET PO SCH (08:11)
[2016-08-05] MEDS: ASPIRIN 81 MG TAB.CHEW PO SCH (08:11)
[2016-08-05] MEDS: LACTOBACILLUS ACIDOPH & BULGAR 1 TABLET. PO SCH (08:11)
[2016-08-05] MEDS: MULTIVITAMIN with MINERAL TABLET. PO SCH (08:11)
[2016-08-05] MEDS: GABAPENTIN 400 MG CAPSULE. PO SCH (08:12)
[2016-08-05] MEDS: FUROSEMIDE 20 MG TABLET PO SCH ×2 (08:12→14:00)
[2016-08-05] MEDS: METOPROLOL TART IMMED RELEASE 25 MG TABLET PO SCH (08:12)
[2016-08-05] MEDS: TAMSULOSIN 0.4 MG CAP.ER.24H. PO SCH (08:13)
[2016-08-05] MEDS: LINAGLIPTIN 5 MG TABLET PO SCH (08:13)
[2016-08-05] MEDS: ASCORBIC ACID 500 MG TABLET PO SCH (08:13)
--- NOTE | 2016-08-05 08:21 | PDOC ---
Infectious Disease Note Subjective Subjective Doing ok ROS ROS GEN: Denies fevers, chills, sweats HEENT: Denies blurred vision, sore throat CV: Denies chest pain RESP: Denies shortness of air, cough GI: Denies n/v/d NEURO: Denies confusion, dizziness MSK: Denies weakness, joint pain/swelling Vital Sign Vital Signs Vital Signs Date Time Temp Pulse Resp B/P Pulse Ox O2 Delivery O2 Flow Rate FiO2 08/05/16 08:12 60 155/59 08/05/16 07:14 97.5 18 94 Room Air 97.5 Physical Exam PHYSICAL EXAM GENERAL: NAD, Alert. in Chair HEENT: PERRL, OC/OP - clear NECK: Supple, no JVD, no LN LUNGS: Clear HEART: S1S2, no gallop, no murmur ABD: Soft, NT, no organomegaly, no rebound EXT: trace to 1 edema, no cyanosis BEEF TRIMMER: Alert, oriented x 3, no focal neurologic deficit SKIN: No rash IV: ok Labs Lab Laboratory Tests Test 08/04/16 10:56 08/04/16 14:15 08/04/16 16:44 08/04/16 20:57 Glucose (Fingerstick) 183mg/dL (70-99) 149mg/dL (70-99) 198mg/dL (70-99) CSF Color Colorless CSF Clarity Clear CSF WBC 1 CSF RBC 1 CSF Glucose 67mg/dL (37-70) CSF Total Protein 69.7mg/dL (15.0-45.0) Test 08/05/16 05:40 08/05/16 07:06 White Blood Count 5.1x10^3/uL (4.0-11.0) Red Blood Count 5.19x10^6/uL (4.30-5.70) Hemoglobin 15.5g/dL (13.0-17.5) Hematocrit 46.3% (39.0-53.0) Mean Corpuscular Volume 89fL (79-100) Mean Corpuscular Hemoglobin 30pg (25-35) Mean Corpuscular Hemoglobin Concent 34g/dL (31-37) Red Cell Distribution Width 15.4% (11.5-14.5) Platelet Count 97x10^3/uL (140-400) Neutrophils (%) (Auto) 70% (31-73) Lymphocytes (%) (Auto) 15% (24-48) Monocytes (%) (Auto) 10% (0-9) Eosinophils (%) (Auto) 4% (0-3) Basophils (%) (Auto) 1% (0-3) Neutrophils # (Auto) 3.6x10^3uL (1.8-7.7) Lymphocytes # (Auto) 0.8x10^3/uL (1.0-4.8) Monocytes # (Auto) 0.5x10^3/uL (0.0-1.1) Eosinophils # (Auto) 0.2x10^3/uL (0.0-0.7) Basophils # (Auto) 0.1x10^3/uL (0.0-0.2) Sodium Level 142mmol/L (136-145) Potassium Level 4.3mmol/L (3.5-5.1) Chloride Level 106mmol/L (98-107) Carbon Dioxide Level 29mmol/L (21-32) Anion Gap 7 (6-14) Blood Urea Nitrogen 23mg/dL (8-26) Creatinine 0.9mg/dL (0.7-1.3) Estimated GFR (Cockcroft-Gault) 85.5 Glucose Level 70mg/dL (70-99) Calcium Level 9.2mg/dL (8.5-10.1) Ammonia 85mcmol/L (11-34) Glucose (Fingerstick) 72mg/dL (70-99) Objective Assessment Weakness Elevated Ammonia Dm with neuropathy HTN ? cirrhosis Plan Plan of Care LP - normal parameters. Would consider decreasing Neurontin dose as he had this dose in mid June and was cut in half sec to Mental status changes No need for abx at this time Await further GI/neuro eval ID to sign off LUISA BAUMAN MD Aug 05, 2016 08:21
--- NOTE | 2016-08-05 10:17 | CONS ---
DATE OF CONSULTATION: 08/04/2016 LOCATION: Room 665. REQUESTING PHYSICIAN: ____. REASON FOR CONSULTATION: Chronically on antibiotics. HISTORY OF PRESENT ILLNESS: The patient is a pleasant 61-year-old gentleman with longstanding history of diabetes who I saw in the outpatient setting in June. He had running fevers in May and received some Rocephin outpatient and stated that it significantly improved. In the office, he was fatigued. He was having trouble ambulating and was concerned for underlying infection, although he did not have any gross fever at that time. At that time, I did order daily Rocephin as well as a workup including a CBC, procalcitonin TSH, RPR, ammonia, sedimentation rate, CMP and acetylcholine receptor antibodies as well as blood cultures x 2. These were all performed at [facility]. Everything was normal aside from an elevated ammonia level in the 80s. He received Rocephin for approximately 3 weeks and this was discontinued approximately the 28 of July as he had significantly improved. At that time, I discussed with ____ inflammatory markers, the CBC was normal. Blood cultures were all negative. It was unlikely that this was an infectious process. Again, the only abnormality was an elevated ammonia level. Additionally, in June, I cut his Neurontin dose in half. On the , he was significantly improved. I stated that if he worsen then he may have to have further evaluation by a black powder glazing operator given the only clear abnormality at that time was elevated ammonia level. His now reports he had been doing fairly well until this past weekend where he steadily declined and he presented to [facility]. He has been afebrile. White blood cell count was obtained and was normal with a normal differential and platelets were decreased at 90. However, he did have an elevated ammonia level of 114 and his total bilirubin was 2.3 and normal liver function study tests at that time. He underwent a CT scan of his head on the that did not show any acute intracranial process. Abdominal ultrasound was obtained and showed chronic portal vein thrombosis. He has not been placed on any antimicrobials. Currently, he is sitting in a chair. Denies any fevers, chills or sweats. He has no headaches, sinus issues, sore throat. No nausea, vomiting, diarrhea, dysuria, frequency or urgency. PAST MEDICAL HISTORY: Positive for diabetes, has a history of fatigue, hypertension, hyperlipidemia, previous CVA, peptic ulcer disease, fatty liver, peripheral neuropathy, osteoarthritis as well as lower extremity cellulitis. PAST SURGICAL HISTORY: Positive for cholecystectomy. REVIEW OF SYSTEMS: Otherwise negative except as mentioned above. ALLERGIES: No known drug allergies. SOCIAL HISTORY: He is . He is retired. Quit smoking. No alcohol. FAMILY HISTORY: Positive for coronary artery disease, CVA, diabetes and hypertension. CURRENT MEDICATIONS: Include Norvasc, vitamin C, aspirin, Lasix, Neurontin, Amaryl, Levemir, Tradjenta, Prinivil, Zofran, rifaximin, Flomax, vitamin E. PHYSICAL EXAMINATION: VITAL SIGNS: Temperature 95, pulse 62, respirations 18, blood pressure of 204/80 at the time of presentation; currently, 97.7, pulse 61, respirations 16, blood pressure 156/63, satting 92% on room air. CONSTITUTIONAL: He is cooperative. He is sitting in chair. He is in no acute distress. HEENT: His pupils are equal and reactive. Normal conjunctivae. Oral cavity: Pharynx was clear. NECK: Supple, no JVD. LUNGS: Clear to auscultation bilaterally. HEART: S1, S2. ABDOMEN: Obese, soft, nontender, nondistended with positive bowel sounds. EXTREMITIES: No clubbing, cyanosis. He has got some trace bilateral edema. SKIN: Without signs of generalized rash. Warm to touch. NEUROLOGICAL: He is alert and oriented and moves all extremities. Affect is appropriate. LABORATORY DATA: White count 5.1, hemoglobin 14.9, platelets 102 with neutrophils 60, lymphs 18, monos 10. Most recent glucose 136, creatinine of 1, total bilirubin of 2.3 today. Normal liver function study tests. Ammonia level was 114. Urinalysis is clean. IMPRESSION: 1. Weakness. 2. Elevated ammonia. 3. Diabetes with neuropathy. 4. Hypertension. 5. Questionable cirrhosis. RECOMMENDATIONS: For now, we would consider decreasing his Neurontin dose as I did do this in mid-May and mid-June, cut in half and he did improve somewhat and currently there is no need for any antibiotics. Await further GI evaluation as well as neuro evaluation. Thank you for allowing us to participate in the patient's care. If you have any questions, please do no hesitate to contact me. This was discussed with his . LUISA BAUMAN MD DR: JAE/carlos eduardo JOB#: [id number] / [id number]
[2016-08-05 11:17] VITALS: BP 142/52
--- NOTE | 2016-08-05 11:39 | PDOC ---
PROGRESS NOTES Assessment Problems Medical Problems: (1) Hyperbilirubinemia Status: Acute (2) Lower extremity weakness Status: Acute (3) Lower extremity weakness Status: Acute Peripheral neuropathy, most likely just from diabetes, but there are some strange wrinkles including response to antibiotics, the memory loss, the elevated liver function testing including ammonia level, the intermittency of the weakness. I find no evidence of central nervous system disease. We need to look for other causes of neuropathy. I am also keeping in mind the possibility of myasthenia gravis. Given the response to antibiotics we need to look for an infectious process within the central nervous system. LP negative for infection , but elevated protein implies inflammation Liver insufficiency, ?portal hypertension, feels better on rifaximim Plan GI workup Await additional laboratory studies Rehabilitation modalities EMG/NCV later today Subjective feels better Objective Vital Signs Date Time Temp Pulse Resp B/P Pulse Ox O2 Delivery O2 Flow Rate FiO2 08/05/16 11:17 97.9 56 20 142/52 97 Room Air 97.9 Intake and Output 08/05/16 07:00 Intake Total 700 ml Output Total 650 ml Balance 50 ml Intake Oral 700 ml Output Urine Total 650 ml Stool Total 0 ml # Voids 2 PHYSICAL EXAM Alert. Oriented to time, place and person. PERRL. EOMI. CN: no focal findings. Muscle tone: normal. Muscle strength: 5/5] DTR: 0+ Plantar reflex: flexor Gait: not examined in bed. Sensory exam: stocking loss. No cerebellar signs elicited. Review of Relevant I have reviewed the following items kailash (where applicable) has been applied. Labs Laboratory Tests Test 08/03/16 12:00 08/03/16 12:04 08/03/16 12:19 08/03/16 15:35 White Blood Count 5.2x10^3/uL (4.0-11.0) Red Blood Count 5.21x10^6/uL (4.30-5.70) Hemoglobin 15.5g/dL (13.0-17.5) Hematocrit 46.6% (39.0-53.0) Mean Corpuscular Volume 89fL (79-100) Mean Corpuscular Hemoglobin 30pg (25-35) Mean Corpuscular Hemoglobin Concent 33g/dL (31-37) Red Cell Distribution Width 15.0% (11.5-14.5) Platelet Count 90x10^3/uL (140-400) Neutrophils (%) (Auto) 71% (31-73) Lymphocytes (%) (Auto) 14% (24-48) Monocytes (%) (Auto) 8% (0-9) Eosinophils (%) (Auto) 6% (0-3) Basophils (%) (Auto) 1% (0-3) Neutrophils # (Auto) 3.7x10^3uL (1.8-7.7) Lymphocytes # (Auto) 0.7x10^3/uL (1.0-4.8) Monocytes # (Auto) 0.4x10^3/uL (0.0-1.1) Eosinophils # (Auto) 0.3x10^3/uL (0.0-0.7) Basophils # (Auto) 0.1x10^3/uL (0.0-0.2) Sodium Level 140mmol/L (136-145) Potassium Level 5.0mmol/L (3.5-5.1) Chloride Level 105mmol/L (98-107) Carbon Dioxide Level 32mmol/L (21-32) Anion Gap 3 (6-14) Blood Urea Nitrogen 23mg/dL (8-26) Creatinine 1.0mg/dL (0.7-1.3) Estimated GFR (Cockcroft-Gault) 75.7 Glucose Level 232mg/dL (70-99) Calcium Level 9.6mg/dL (8.5-10.1) Total Bilirubin 2.2mg/dL (0.2-1.0) Direct Bilirubin 0.4mg/dL (0.0-0.2) Aspartate Amino Transf (AST/SGOT) 45U/L (15-37) Alanine Aminotransferase (ALT/SGPT) 43U/L (16-63) Alkaline Phosphatase 78U/L (46-116) Ammonia 157mcmol/L (11-34) Troponin I Quantitative 0.017ng/mL (0.000-0.055) XR-Nwt-I-Type Natriuretic Peptide 72pg/mL (0-124) Total Protein 6.3g/dL (6.4-8.2) Albumin 3.2g/dL (3.4-5.0) Lipase 126U/L (73-393) Urine Collection Type Void Urine Color Yellow Urine Clarity Clear Urine pH 6.0 Urine Specific [place] 1.015 Urine Protein 30mg/dL (NEG-TRACE) Urine Glucose (UA) Negativemg/dL (NEG) Urine Ketones (Stick) Negativemg/dL (NEG) Urine Blood Small (NEG) Urine Nitrite Negative (NEG) Urine Bilirubin Negative (NEG) Urine Urobilinogen Dipstick 0.2mg/dL (0.2 mg/dL) Urine Leukocyte Esterase Negative (NEG) Urine RBC 1-2/HPF (0-2) Urine WBC 0/HPF (0-4) Urine Squamous Epithelial Cells Occ/LPF Urine Bacteria 0/HPF (0-FEW) Urine Hyaline Casts Few/HPF Urine Mucus Slight/LPF Glucose (Fingerstick) 196mg/dL (70-99) Iron Level 107ug/dL (65-175) Total Iron Binding Capacity 303ug/dL (250-450) Iron Saturation 35% (15-34) Tumor Marker Alpha Fetoprotein 1.2ng/mL (0.0-8.3) Test 08/03/16 17:17 08/03/16 20:29 08/04/16 03:30 08/04/16 07:40 Glucose (Fingerstick) 220mg/dL (70-99) 230mg/dL (70-99) 136mg/dL (70-99) White Blood Count 5.1x10^3/uL (4.0-11.0) Red Blood Count 4.95x10^6/uL (4.30-5.70) Hemoglobin 14.9g/dL (13.0-17.5) Hematocrit 44.2% (39.0-53.0) Mean Corpuscular Volume 89fL (79-100) Mean Corpuscular Hemoglobin 30pg (25-35) Mean Corpuscular Hemoglobin Concent 34g/dL (31-37) Red Cell Distribution Width 15.8% (11.5-14.5) Platelet Count 102x10^3/uL (140-400) Neutrophils (%) (Auto) 60% (31-73) Lymphocytes (%) (Auto) 18% (24-48) Monocytes (%) (Auto) 10% (0-9) Eosinophils (%) (Auto) 11% (0-3) Basophils (%) (Auto) 1% (0-3) Neutrophils # (Auto) 3.1x10^3uL (1.8-7.7) Lymphocytes # (Auto) 0.9x10^3/uL (1.0-4.8) Monocytes # (Auto) 0.5x10^3/uL (0.0-1.1) Eosinophils # (Auto) 0.6x10^3/uL (0.0-0.7) Basophils # (Auto) 0.1x10^3/uL (0.0-0.2) Erythrocyte Sedimentation Rate 4 (0-15) Sodium Level 145mmol/L (136-145) Potassium Level 4.4mmol/L (3.5-5.1) Chloride Level 108mmol/L (98-107) Carbon Dioxide Level 31mmol/L (21-32) Anion Gap 6 (6-14) Blood Urea Nitrogen 24mg/dL (8-26) Creatinine 1.0mg/dL (0.7-1.3) Estimated GFR (Cockcroft-Gault) 75.7 Glucose Level 114mg/dL (70-99) Hemoglobin A1c 6.7% (4.8-5.6) Calcium Level 9.2mg/dL (8.5-10.1) Total Bilirubin 2.3mg/dL (0.2-1.0) Direct Bilirubin 0.4mg/dL (0.0-0.2) Aspartate Amino Transf (AST/SGOT) 36U/L (15-37) Alanine Aminotransferase (ALT/SGPT) 37U/L (16-63) Alkaline Phosphatase 72U/L (46-116) Ammonia 114mcmol/L (11-34) Total Protein 6.6g/dL (6.4-8.2) Albumin 2.9g/dL (3.4-5.0) Vitamin B12 Level 860pg/mL (211-946) Folic Acid (LAB) >19.9ng/mL (>3.0) Test 08/04/16 10:56 08/04/16 14:15 08/04/16 16:44 08/04/16 20:57 Glucose (Fingerstick) 183mg/dL (70-99) 149mg/dL (70-99) 198mg/dL (70-99) CSF Color Colorless CSF Clarity Clear CSF WBC 1 CSF RBC 1 CSF Glucose 67mg/dL (37-70) CSF Total Protein 69.7mg/dL (15.0-45.0) Test 08/05/16 05:40 08/05/16 07:06 White Blood Count 5.1x10^3/uL (4.0-11.0) Red Blood Count 5.19x10^6/uL (4.30-5.70) Hemoglobin 15.5g/dL (13.0-17.5) Hematocrit 46.3% (39.0-53.0) Mean Corpuscular Volume 89fL (79-100) Mean Corpuscular Hemoglobin 30pg (25-35) Mean Corpuscular Hemoglobin Concent 34g/dL (31-37) Red Cell Distribution Width 15.4% (11.5-14.5) Platelet Count 97x10^3/uL (140-400) Neutrophils (%) (Auto) 70% (31-73) Lymphocytes (%) (Auto) 15% (24-48) Monocytes (%) (Auto) 10% (0-9) Eosinophils (%) (Auto) 4% (0-3) Basophils (%) (Auto) 1% (0-3) Neutrophils # (Auto) 3.6x10^3uL (1.8-7.7) Lymphocytes # (Auto) 0.8x10^3/uL (1.0-4.8) Monocytes # (Auto) 0.5x10^3/uL (0.0-1.1) Eosinophils # (Auto) 0.2x10^3/uL (0.0-0.7) Basophils # (Auto) 0.1x10^3/uL (0.0-0.2) Sodium Level 142mmol/L (136-145) Potassium Level 4.3mmol/L (3.5-5.1) Chloride Level 106mmol/L (98-107) Carbon Dioxide Level 29mmol/L (21-32) Anion Gap 7 (6-14) Blood Urea Nitrogen 23mg/dL (8-26) Creatinine 0.9mg/dL (0.7-1.3) Estimated GFR (Cockcroft-Gault) 85.5 Glucose Level 70mg/dL (70-99) Calcium Level 9.2mg/dL (8.5-10.1) Ammonia 85mcmol/L (11-34) Glucose (Fingerstick) 72mg/dL (70-99) Laboratory Tests Test 08/04/16 14:15 08/04/16 16:44 08/04/16 20:57 08/05/16 05:40 CSF Color Colorless CSF Clarity Clear CSF WBC 1 CSF RBC 1 CSF Glucose 67mg/dL (37-70) CSF Total Protein 69.7mg/dL (15.0-45.0) Glucose (Fingerstick) 149mg/dL (70-99) 198mg/dL (70-99) White Blood Count 5.1x10^3/uL (4.0-11.0) Red Blood Count 5.19x10^6/uL (4.30-5.70) Hemoglobin 15.5g/dL (13.0-17.5) Hematocrit 46.3% (39.0-53.0) Mean Corpuscular Volume 89fL (79-100) Mean Corpuscular Hemoglobin 30pg (25-35) Mean Corpuscular Hemoglobin Concent 34g/dL (31-37) Red Cell Distribution Width 15.4% (11.5-14.5) Platelet Count 97x10^3/uL (140-400) Neutrophils (%) (Auto) 70% (31-73) Lymphocytes (%) (Auto) 15% (24-48) Monocytes (%) (Auto) 10% (0-9) Eosinophils (%) (Auto) 4% (0-3) Basophils (%) (Auto) 1% (0-3) Neutrophils # (Auto) 3.6x10^3uL (1.8-7.7) Lymphocytes # (Auto) 0.8x10^3/uL (1.0-4.8) Monocytes # (Auto) 0.5x10^3/uL (0.0-1.1) Eosinophils # (Auto) 0.2x10^3/uL (0.0-0.7) Basophils # (Auto) 0.1x10^3/uL (0.0-0.2) Sodium Level 142mmol/L (136-145) Potassium Level 4.3mmol/L (3.5-5.1) Chloride Level 106mmol/L (98-107) Carbon Dioxide Level 29mmol/L (21-32) Anion Gap 7 (6-14) Blood Urea Nitrogen 23mg/dL (8-26) Creatinine 0.9mg/dL (0.7-1.3) Estimated GFR (Cockcroft-Gault) 85.5 Glucose Level 70mg/dL (70-99) Calcium Level 9.2mg/dL (8.5-10.1) Ammonia 85mcmol/L (11-34) Test 08/05/16 07:06 Glucose (Fingerstick) 72mg/dL (70-99) Medications Current Medications Ondansetron HCl (Zofran) 4 mg PRN Q8HRS PRN IV NAUSEA/VOMITING; Start 08/03/16 at 13:45; Stop 08/04/16 at 13:44; Status DC Morphine Sulfate 2 mg PRN Q2HR PRN IV PAIN; Start 08/03/16 at 13:45; Stop 08/04 at 13:44; Status DC Lactobacillus Acidophilus (Bacid, Debbie-Bid) 1 tab DAILY PO Last administered on 08/05/16 08:11; Start 08/04/16 at 09:00 Rifaximin (Xifaxan) 550 mg Q12HR PO Last administered on 08/05/16 08:11; Start 08/03/16 at 21:00 Aspirin (Children'S Aspirin) 81 mg [id number] PO Last administered on 08:11; Start 08/04/16 at 08:00 Ferrous Sulfate (Feosol) 325 mg DAILY08 PO Last administered on 08/05/16 08:11 ; Start 08/04/16 at 08:00 Furosemide (Lasix) 20 mg BID92 PO Last administered on 08/05/16 08:12; Start 08/04/16 at 09:00 Linagliptin (Tradjenta) 5 mg DAILY PO Last administered on 08/05/16 08:13; Start 08/04/16 at 09:00 Metoprolol Tartrate (Lopressor) 25 mg BID PO Last administered on 08/05/16 08: 12; Start 08/03/16 at 21:00 Sucralfate (Carafate) 1 gm PRN QID PRN PO NAUSEA/VOMITING; Start 08/03/16 at 18 :00 Tamsulosin HCl (Flomax) 0.4 mg DAILY PO Last administered on 08/05/16 08:13; Start 08/04/16 at 09:00 Ascorbic Acid (Vitamin C) 1,000 mg DAILY PO Last administered on 08/05/16 08: 13; Start 08/04/16 at 09:00 Gabapentin (Neurontin) 1,200 mg BID PO Last administered on 08/05/16 08:12; Start 08/03/16 at 21:00 Glimepiride (Amaryl) 4 mg BIDWMEALS PO Last administered on 08/04/16 18:02; Start 08/04/16 at 08:00 Insulin Aspart (Novolog) 10 units TIDAC SQ Last administered on 08/04/16 18:09 ; Start 08/03/16 at 18:00 Insulin Detemir (Levemir) 45 units DAILYWLUN SQ Last administered on 08/04/16 12:49; Start 08/04/16 at 12:00 Multivitamins/ Calcium (Thera M Plus) 1 tab DAILY PO Last administered on 08:11; Start 08/04/16 at 09:00 Lisinopril (Prinivil) 20 mg DAILY PO Last administered on 08/05/16 08:11; Start 08/04/16 at 09:00 Vitamin E 400 unit DAILY PO Last administered on 08/04/16 16:06; Start at 09:00 Amlodipine Besylate (Norvasc) 10 mg DAILY PO Last administered on 08/05/16 08: 10; Start 08/03/16 at 19:30 Acetaminophen (Tylenol) 650 mg PRN Q6HRS PRN PO MILD PAIN / TEMP; Start at 14:45 Lactulose 20 gm PRN BID PRN PO CONSTIPATION; Start 08/04/16 at 14:45 Active Scripts Active Reported Metoprolol Tartrate 25 Mg Tablet 1 Tab PO BID92 Ferrous Sulfate 325 Mg Tablet 1 Tab PO DAILY08 Multi-Day Vitamins (Multivitamin) 1 Each Tablet 1 Tab PO DAILY08 Ramipril 10 Mg Capsule 1 Cap PO DAILY08 Novolog (Insulin Aspart) 100 Unit/1 Ml Cartridge 10 Unit SQ TIDAC Levemir (Insulin Detemir) 100 Unit/1 Ml Vial 45 Unit SQ DAILYWLUN Gabapentin 600 Mg Tablet 1,200 Mg PO BID Folbic Tablet (Cyanocobalamin/Fa/Pyridoxine) 1 Each Tablet Unknown Dose PO DAILY Fish Oil ([place]-3 Fatty Acids) 500 Mg Capsule.dr 1,000 Mg PO Flomax (Tamsulosin Hcl) 0.4 Mg Cap.er.24h 1 Cap PO DAILY Vitamin C (Ascorbic Acid) 1,000 Mg Tablet.er 1,000 Mg PO DAILY Vitamin E 400 Unit Capsule 400 Unit PO DAILY Carafate (Sucralfate) 1 Gm Tablet 1 Gm PO PRN QID Aspirin 81 Mg Tab.chew 81 Mg PO DAILY Lasix (Furosemide) 20 Mg Tablet 20 Mg PO PRN BID Tradjenta (Linagliptin) 5 Mg Tablet 5 Mg PO DAILY Glimepiride 4 Mg Tablet 4 Mg PO BID94 Vitals/I & O Vital Sign - Last 24 Hours 08/04/16 08/04/16 08/04/16 08/04/16 15:00 16:06 16:07 16:08 Temp 97.8 97.8 Pulse 66 66 66 66 Resp 16 B/P 172/67 172/67 172/67 172/67 Pulse Ox 94 O2 Delivery Room Air 08/04/16 08/04/16 08/05/16 08/05/16 19:00 23:11 03:00 07:14 Temp 98.1 97.9 97.9 97.5 98.1 97.9 97.9 97.5 Pulse 57 57 66 60 Resp 18 18 B/P 144/51 143/56 144/55 155/59 Pulse Ox 95 93 91 94 O2 Delivery Room Air Room Air Room Air Room Air 08/05/16 08/05/16 08/05/16 08/05/16 08:00 08:10 08:11 08:12 Pulse 60 60 60 B/P 155/59 155/59 155/59 O2 Delivery Room Air 08/05/16 11:17 Temp 97.9 97.9 Pulse 56 Resp 20 B/P 142/52 Pulse Ox 97 O2 Delivery Room Air Intake and Output 08/04/16 08/04/16 08/05/16 15:00 23:00 07:00 Intake Total 400 ml 300 ml Output Total 400 ml 250 ml Balance 0 ml 50 ml JONO GARZA MD 18, 2017 11:39
--- NOTE | 2016-08-05 12:40 | PDOC ---
Provider Note Provider Note EMG REPORT Test Date: 08/05/2016 Patient: Jessika Benavides Jr. : 1955 Physician: Jono Garza M.D., FAALauri Sex: Male Height: 175 cm Ref Phys: Dr. Yarbrough Dear Dr. Yarbrough: I appreciated the opportunity to perform an electrodiagnostic medical consultation on your patient. Patient Complaints: Evaluate peripheral neuropathy NCV & EMG Findings: Evaluation of the Left peroneal motor and the Left tibial motor nerves showed no response (Ankle). The Left sural sensory and the Right sural sensory nerves showed no response (Calf). Needle evaluation of the Right extensor hallucis longus and the Left extensor hallucis longus muscles showed increased motor unit duration, slightly increased polyphasic potentials, diminished recruitment, and very decreased interference pattern. All remaining muscles (as indicated in the following table) showed no evidence of electrical instability. Impression: 1. 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 Differential diagnosis includes diabetes, uremia and other metabolic problems, vitamin deficiencies, alcoholism, connective tissue disease, toxins, medications, paraneoplastic syndromes, various infections, hereditary causes. 2. There is no sign of lumbosacral radiculopathy on either side. 3. There is no sign of lumbosacral plexopathy on either side. 4. There is no evidence of myopathy affecting the studied extremities. Thank you very much for letting me help with the patient's care. Jono Garza M.D., FAAN Elecctronically authenticated 08/05/2016 12:43:26 PM Cc: Dr. Moreno Nerve Conduction Studies Anti Sensory Summary Table Site NR Onset (ms) Norm Onset (ms) O-P Amp (V) Norm O-P Amp Site1 Site2 Delta- 0 (ms) Dist (cm) Jaime (m/s) Norm Jaime (m/s) Left Sural Anti Sensory (Lat Mall) Calf NR >5.0 Calf Lat Mall 14.0 >35 Right Sural Anti Sensory (Lat Mall) Calf NR >5.0 Calf Lat Mall 14.0 >35 Motor Summary Table Site NR Onset (ms) Norm Onset (ms) P-T Amp (mV) Norm P-T Amp Site1 Site2 Delta- 0 (ms) Dist (cm) Jaime (m/s) Norm Jaime (m/s) Left Peroneal Motor (Ext Dig Brev) Ankle NR <4.8 >4 Left Tibial Motor (Abd Santos Brev) Ankle NR <6.0 >4.0 EMG Side Muscle Nerve Root Ins Act Fibs Psw Amp Dur Poly Recrt Int Pat Comment Right ExtHallLong Dp Br Peron L5, S1 Nml Nml Nml Nml >12ms 1+ Reduced 25% chronic neurogenic Right Gastroc Tibial S1-2 Nml Nml Nml Nml Nml 0 Nml Nml Right AntTibialis Dp Br Peron L4-5 Nml Nml Nml Nml Nml 0 Nml Nml Right VastusMed Femoral L2-4 Nml Nml Nml Nml Nml 0 Nml Nml Right BicepsFemL Sciatic L5-S2 Nml Nml Nml Nml Nml 0 Nml Nml Right Lumbo Parasp Up Rami L1-2 Nml Nml Nml Right Lumbo Parasp Mid Rami L3-4 Nml Nml Nml Right Lumbo Parasp Low Rami L5-S1 Nml Nml Nml Left ExtHallLong Dp Br Peron L5, S1 Nml Nml Nml Nml >12ms 1+ Reduced 25% chronic neurogenic Left Gastroc Tibial S1-2 Nml Nml Nml Nml Nml 0 Nml Nml Left AntTibialis Dp Br Peron L4-5 Nml Nml Nml Nml Nml 0 Nml Nml Left VastusMed Femoral L2-4 Nml Nml Nml Nml Nml 0 Nml Nml Left BicepsFemL Sciatic L5-S2 Nml Nml Nml Nml Nml 0 Nml Nml Left Lumbo Parasp Up Rami L1-2 Nml Nml Nml Left Lumbo Parasp Mid Rami L3-4 Nml Nml Nml Left Lumbo Parasp Low Rami L5-S1 Nml Nml Nml Nerve Conduction Studies Anti Sensory Left/Right Comparison Site L Lat (ms) R Lat (ms) L-R Lat (ms) L Amp (V) R Amp (V) L-R Amp (%) Site1 Site2 L Jaime (m/s) R Jaime (m/s) L-R Jaime (m/s) Sural Anti Sensory (Lat Mall) Calf Calf Lat Mall Motor Left/Right Comparison Site L Lat (ms) R Lat (ms) L-R Lat (ms) L Amp (mV) R Amp (mV) L-R Amp (%) Site1 Site2 L Jaime (m/s) R Jaime (m/s) L-R Jaime (m/s) Peroneal Motor (Ext Dig Brev) Ankle Tibial Motor (Abd Santos Brev) Ankle Waveforms: (see original report) JONO GARZA MD Aug 05, 2016 12:40
[2016-08-05 13:23] LABS: CERULOPLASMIN 20.4 mg/dL (16.0-31.0)
[2016-08-05] MEDS: VITAMIN E 200 UNIT CAPSULE. PO SCH (13:27)
[2016-08-05] MEDS: INSULIN DETEMIR 300 UNITS/3 ML INSULN.PEN. SQ SCH (13:35)
--- NOTE | 2016-08-05 13:44 | PDOC ---
Subjective: Subjective: Pt seen earlier after returning from EMG. Feeling better. Objective: Objective: Per RN - plans to DC. Vital Signs: Vital Signs Date Time Temp Pulse Resp B/P Pulse Ox O2 Delivery O2 Flow Rate FiO2 08/05/16 11:17 97.9 56 20 142/52 97 Room Air 97.9 Labs: Laboratory Tests Test 08/04/16 16:44 08/04/16 20:57 08/05/16 07:06 08/05/16 12:09 Glucose (Fingerstick) 149mg/dL (70-99) 198mg/dL (70-99) 72mg/dL (70-99) 282mg/dL (70-99) PE: GEN: NAD, up to chair eating lunch LUNGS: CTAB HEART: RRR ABD: NABS, S/ND/NT NEURO/PSYCH: A & O 3 A/P: Weakness, cognitive changes - recurrent -improved w/ antibiotics, followed by ID, neuro, also saw heme/onc Elevated bilirubin, hyperammonemia, chronic portal vein thrombosis - now on Xifaxan -- DC okay per GI. Continue Xifaxan. Follow-up w/ Dr. Harrington for additional lab results. FERNANDEZ CHEEK Aug 05, 2016 13:44 NAS HARRINGTON MD Aug 05, 2016 13:52
--- NOTE | 2016-08-05 13:48 | PDOC ---
PROGRESS NOTES Chief Complaint Chief Complaint chronic cognitive changes, possible 2/2 hepatic dz with high ammonia DM neuropathy dm2 on insulin unsteady gait bl leg weakness Elevated bili, hyperammonemia, chronic portal vein thrombosis Chronic diarrhea thrombocytopenia, 2/2 liver dz with splenmegaly HTN plan: 1. fu with gi, neuro, id, onco 2. LP 08/04 ,result only showed slightly high total protein 3 many labs pending for liver and rheum dz 4. CONT current meds for htn on xifaxan, add lactulose prn, keep BM 2-3 times per day ammonia level daily PTOT EMG done by neuro today, showed polyneuropathy History of Present Illness History of Present Illness feels better today saying chornic cognitive changes, never seen GI before, no cirrhosis, better with abx (not sure why) ammonia level better to 80s today Vitals Vitals Vital Signs Date Time Temp Pulse Resp B/P Pulse Ox O2 Delivery O2 Flow Rate FiO2 08/05/16 11:17 97.9 56 20 142/52 97 Room Air 97.9 Physical Exam General: Alert, Oriented X3, Cooperative Heart: Regular rate, Normal S1 Lungs: Clear, Other Abdomen: Normal bowel sounds, Soft Extremities: No clubbing, No cyanosis Skin: No rashes Labs LABS Laboratory Tests Test 08/04/16 14:15 08/04/16 16:44 08/04/16 20:57 08/05/16 05:40 CSF Color Colorless CSF Clarity Clear CSF WBC 1 CSF RBC 1 CSF Glucose 67mg/dL (37-70) CSF Total Protein 69.7mg/dL (15.0-45.0) Glucose (Fingerstick) 149mg/dL (70-99) 198mg/dL (70-99) White Blood Count 5.1x10^3/uL (4.0-11.0) Red Blood Count 5.19x10^6/uL (4.30-5.70) Hemoglobin 15.5g/dL (13.0-17.5) Hematocrit 46.3% (39.0-53.0) Mean Corpuscular Volume 89fL (79-100) Mean Corpuscular Hemoglobin 30pg (25-35) Mean Corpuscular Hemoglobin Concent 34g/dL (31-37) Red Cell Distribution Width 15.4% (11.5-14.5) Platelet Count 97x10^3/uL (140-400) Neutrophils (%) (Auto) 70% (31-73) Lymphocytes (%) (Auto) 15% (24-48) Monocytes (%) (Auto) 10% (0-9) Eosinophils (%) (Auto) 4% (0-3) Basophils (%) (Auto) 1% (0-3) Neutrophils # (Auto) 3.6x10^3uL (1.8-7.7) Lymphocytes # (Auto) 0.8x10^3/uL (1.0-4.8) Monocytes # (Auto) 0.5x10^3/uL (0.0-1.1) Eosinophils # (Auto) 0.2x10^3/uL (0.0-0.7) Basophils # (Auto) 0.1x10^3/uL (0.0-0.2) Sodium Level 142mmol/L (136-145) Potassium Level 4.3mmol/L (3.5-5.1) Chloride Level 106mmol/L (98-107) Carbon Dioxide Level 29mmol/L (21-32) Anion Gap 7 (6-14) Blood Urea Nitrogen 23mg/dL (8-26) Creatinine 0.9mg/dL (0.7-1.3) Estimated GFR (Cockcroft-Gault) 85.5 Glucose Level 70mg/dL (70-99) Calcium Level 9.2mg/dL (8.5-10.1) Ammonia 85mcmol/L (11-34) Test 08/05/16 07:06 08/05/16 12:09 Glucose (Fingerstick) 72mg/dL (70-99) 282mg/dL (70-99) Review of Systems Review of Systems no fever, chills, sob, chest pain Assessment and Plan Assessmemt and Plan Problems Medical Problems: (1) Hyperbilirubinemia Status: Acute (2) Lower extremity weakness Status: Acute (3) Lower extremity weakness Status: Acute Problems: Comment Review of Relevant I have reviewed the following items kailash (where applicable) has been applied. Labs Laboratory Tests Test 08/03/16 15:35 08/03/16 17:17 08/03/16 20:29 08/04/16 03:30 Iron Level 107ug/dL (65-175) Total Iron Binding Capacity 303ug/dL (250-450) Iron Saturation 35% (15-34) Tumor Marker Alpha Fetoprotein 1.2ng/mL (0.0-8.3) Glucose (Fingerstick) 220mg/dL (70-99) 230mg/dL (70-99) White Blood Count 5.1x10^3/uL (4.0-11.0) Red Blood Count 4.95x10^6/uL (4.30-5.70) Hemoglobin 14.9g/dL (13.0-17.5) Hematocrit 44.2% (39.0-53.0) Mean Corpuscular Volume 89fL (79-100) Mean Corpuscular Hemoglobin 30pg (25-35) Mean Corpuscular Hemoglobin Concent 34g/dL (31-37) Red Cell Distribution Width 15.8% (11.5-14.5) Platelet Count 102x10^3/uL (140-400) Neutrophils (%) (Auto) 60% (31-73) Lymphocytes (%) (Auto) 18% (24-48) Monocytes (%) (Auto) 10% (0-9) Eosinophils (%) (Auto) 11% (0-3) Basophils (%) (Auto) 1% (0-3) Neutrophils # (Auto) 3.1x10^3uL (1.8-7.7) Lymphocytes # (Auto) 0.9x10^3/uL (1.0-4.8) Monocytes # (Auto) 0.5x10^3/uL (0.0-1.1) Eosinophils # (Auto) 0.6x10^3/uL (0.0-0.7) Basophils # (Auto) 0.1x10^3/uL (0.0-0.2) Erythrocyte Sedimentation Rate 4 (0-15) Sodium Level 145mmol/L (136-145) Potassium Level 4.4mmol/L (3.5-5.1) Chloride Level 108mmol/L (98-107) Carbon Dioxide Level 31mmol/L (21-32) Anion Gap 6 (6-14) Blood Urea Nitrogen 24mg/dL (8-26) Creatinine 1.0mg/dL (0.7-1.3) Estimated GFR (Cockcroft-Gault) 75.7 Glucose Level 114mg/dL (70-99) Hemoglobin A1c 6.7% (4.8-5.6) Calcium Level 9.2mg/dL (8.5-10.1) Total Bilirubin 2.3mg/dL (0.2-1.0) Direct Bilirubin 0.4mg/dL (0.0-0.2) Aspartate Amino Transf (AST/SGOT) 36U/L (15-37) Alanine Aminotransferase (ALT/SGPT) 37U/L (16-63) Alkaline Phosphatase 72U/L (46-116) Ammonia 114mcmol/L (11-34) Total Protein 6.6g/dL (6.4-8.2) Albumin 2.9g/dL (3.4-5.0) Ceruloplasmin 20.4mg/dL (16.0-31.0) Vitamin B12 Level 860pg/mL (211-946) Folic Acid (LAB) >19.9ng/mL (>3.0) Test 08/04/16 07:40 08/04/16 10:56 08/04/16 14:15 08/04/16 16:44 Glucose (Fingerstick) 136mg/dL (70-99) 183mg/dL (70-99) 149mg/dL (70-99) CSF Color Colorless CSF Clarity Clear CSF WBC 1 CSF RBC 1 CSF Glucose 67mg/dL (37-70) CSF Total Protein 69.7mg/dL (15.0-45.0) Test 08/04/16 20:57 08/05/16 05:40 08/05/16 07:06 08/05/16 12:09 Glucose (Fingerstick) 198mg/dL (70-99) 72mg/dL (70-99) 282mg/dL (70-99) White Blood Count 5.1x10^3/uL (4.0-11.0) Red Blood Count 5.19x10^6/uL (4.30-5.70) Hemoglobin 15.5g/dL (13.0-17.5) Hematocrit 46.3% (39.0-53.0) Mean Corpuscular Volume 89fL (79-100) Mean Corpuscular Hemoglobin 30pg (25-35) Mean Corpuscular Hemoglobin Concent 34g/dL (31-37) Red Cell Distribution Width 15.4% (11.5-14.5) Platelet Count 97x10^3/uL (140-400) Neutrophils (%) (Auto) 70% (31-73) Lymphocytes (%) (Auto) 15% (24-48) Monocytes (%) (Auto) 10% (0-9) Eosinophils (%) (Auto) 4% (0-3) Basophils (%) (Auto) 1% (0-3) Neutrophils # (Auto) 3.6x10^3uL (1.8-7.7) Lymphocytes # (Auto) 0.8x10^3/uL (1.0-4.8) Monocytes # (Auto) 0.5x10^3/uL (0.0-1.1) Eosinophils # (Auto) 0.2x10^3/uL (0.0-0.7) Basophils # (Auto) 0.1x10^3/uL (0.0-0.2) Sodium Level 142mmol/L (136-145) Potassium Level 4.3mmol/L (3.5-5.1) Chloride Level 106mmol/L (98-107) Carbon Dioxide Level 29mmol/L (21-32) Anion Gap 7 (6-14) Blood Urea Nitrogen 23mg/dL (8-26) Creatinine 0.9mg/dL (0.7-1.3) Estimated GFR (Cockcroft-Gault) 85.5 Glucose Level 70mg/dL (70-99) Calcium Level 9.2mg/dL (8.5-10.1) Ammonia 85mcmol/L (11-34) Laboratory Tests Test 08/04/16 14:15 08/04/16 16:44 08/04/16 20:57 08/05/16 05:40 CSF Color Colorless CSF Clarity Clear CSF WBC 1 CSF RBC 1 CSF Glucose 67mg/dL (37-70) CSF Total Protein 69.7mg/dL (15.0-45.0) Glucose (Fingerstick) 149mg/dL (70-99) 198mg/dL (70-99) White Blood Count 5.1x10^3/uL (4.0-11.0) Red Blood Count 5.19x10^6/uL (4.30-5.70) Hemoglobin 15.5g/dL (13.0-17.5) Hematocrit 46.3% (39.0-53.0) Mean Corpuscular Volume 89fL (79-100) Mean Corpuscular Hemoglobin 30pg (25-35) Mean Corpuscular Hemoglobin Concent 34g/dL (31-37) Red Cell Distribution Width 15.4% (11.5-14.5) Platelet Count 97x10^3/uL (140-400) Neutrophils (%) (Auto) 70% (31-73) Lymphocytes (%) (Auto) 15% (24-48) Monocytes (%) (Auto) 10% (0-9) Eosinophils (%) (Auto) 4% (0-3) Basophils (%) (Auto) 1% (0-3) Neutrophils # (Auto) 3.6x10^3uL (1.8-7.7) Lymphocytes # (Auto) 0.8x10^3/uL (1.0-4.8) Monocytes # (Auto) 0.5x10^3/uL (0.0-1.1) Eosinophils # (Auto) 0.2x10^3/uL (0.0-0.7) Basophils # (Auto) 0.1x10^3/uL (0.0-0.2) Sodium Level 142mmol/L (136-145) Potassium Level 4.3mmol/L (3.5-5.1) Chloride Level 106mmol/L (98-107) Carbon Dioxide Level 29mmol/L (21-32) Anion Gap 7 (6-14) Blood Urea Nitrogen 23mg/dL (8-26) Creatinine 0.9mg/dL (0.7-1.3) Estimated GFR (Cockcroft-Gault) 85.5 Glucose Level 70mg/dL (70-99) Calcium Level 9.2mg/dL (8.5-10.1) Ammonia 85mcmol/L (11-34) Test 08/05/16 07:06 08/05/16 12:09 Glucose (Fingerstick) 72mg/dL (70-99) 282mg/dL (70-99) Medications Current Medications Ondansetron HCl (Zofran) 4 mg PRN Q8HRS PRN IV NAUSEA/VOMITING; Start 08/03/16 at 13:45; Stop 08/04/16 at 13:44; Status DC Morphine Sulfate 2 mg PRN Q2HR PRN IV PAIN; Start 08/03/16 at 13:45; Stop 08/04 at 13:44; Status DC Lactobacillus Acidophilus (Bacid, Debbie-Bid) 1 tab DAILY PO Last administered on 08/05/16 08:11; Start 08/04/16 at 09:00 Rifaximin (Xifaxan) 550 mg Q12HR PO Last administered on 08/05/16 08:11; Start 08/03/16 at 21:00 Aspirin (Children'S Aspirin) 81 mg DAILYWBKFT PO Last administered on 08:11; Start 08/04/16 at 08:00 Ferrous Sulfate (Feosol) 325 mg DAILY08 PO Last administered on 08/05/16 08:11 ; Start 08/04/16 at 08:00 Furosemide (Lasix) 20 mg BID92 PO Last administered on 08/05/16 08:12; Start 08/04/16 at 09:00 Linagliptin (Tradjenta) 5 mg DAILY PO Last administered on 08/05/16 08:13; Start 08/04/16 at 09:00 Metoprolol Tartrate (Lopressor) 25 mg BID PO Last administered on 08/05/16 08: 12; Start 08/03/16 at 21:00 Sucralfate (Carafate) 1 gm PRN QID PRN PO NAUSEA/VOMITING; Start 08/03/16 at 18 :00 Tamsulosin HCl (Flomax) 0.4 mg DAILY PO Last administered on 08/05/16 08:13; Start 08/04/16 at 09:00 Ascorbic Acid (Vitamin C) 1,000 mg DAILY PO Last administered on 08/05/16 08: 13; Start 08/04/16 at 09:00 Gabapentin (Neurontin) 1,200 mg BID PO Last administered on 08/05/16 08:12; Start 08/03/16 at 21:00 Glimepiride (Amaryl) 4 mg BIDWMEALS PO Last administered on 08/04/16 18:02; Start 08/04/16 at 08:00 Insulin Aspart (Novolog) 10 units TIDAC SQ Last administered on 08/05/16 13:35 ; Start 08/03/16 at 18:00 Insulin Detemir (Levemir) 45 units DAILYWLUN SQ Last administered on 08/05/16 13:35; Start 08/04/16 at 12:00 Multivitamins/ Calcium (Thera M Plus) 1 tab DAILY PO Last administered on 08:11; Start 08/04/16 at 09:00 Lisinopril (Prinivil) 20 mg DAILY PO Last administered on 08/05/16 08:11; Start 08/04/16 at 09:00 Vitamin E 400 unit DAILY PO Last administered on 08/05/16 13:27; Start at 09:00 Amlodipine Besylate (Norvasc) 10 mg DAILY PO Last administered on 08/05/16 08: 10; Start 08/03/16 at 19:30 Acetaminophen (Tylenol) 650 mg PRN Q6HRS PRN PO MILD PAIN / TEMP; Start at 14:45 Lactulose 20 gm PRN BID PRN PO CONSTIPATION; Start 08/04/16 at 14:45 Active Scripts Active Reported Metoprolol Tartrate 25 Mg Tablet 1 Tab PO BID92 Ferrous Sulfate 325 Mg Tablet 1 Tab PO DAILY08 Multi-Day Vitamins (Multivitamin) 1 Each Tablet 1 Tab PO DAILY08 Ramipril 10 Mg Capsule 1 Cap PO DAILY08 Novolog (Insulin Aspart) 100 Unit/1 Ml Cartridge 10 Unit SQ TIDAC Levemir (Insulin Detemir) 100 Unit/1 Ml Vial 45 Unit SQ DAILYWLUN Gabapentin 600 Mg Tablet 1,200 Mg PO BID Folbic Tablet (Cyanocobalamin/Fa/Pyridoxine) 1 Each Tablet Unknown Dose PO DAILY Fish Oil ([place]-3 Fatty Acids) 500 Mg Capsule.dr 1,000 Mg PO Flomax (Tamsulosin Hcl) 0.4 Mg Cap.er.24h 1 Cap PO DAILY Vitamin C (Ascorbic Acid) 1,000 Mg Tablet.er 1,000 Mg PO DAILY Vitamin E 400 Unit Capsule 400 Unit PO DAILY Carafate (Sucralfate) 1 Gm Tablet 1 Gm PO PRN QID Aspirin 81 Mg Tab.chew 81 Mg PO DAILY Lasix (Furosemide) 20 Mg Tablet 20 Mg PO PRN BID Tradjenta (Linagliptin) 5 Mg Tablet 5 Mg PO DAILY Glimepiride 4 Mg Tablet 4 Mg PO BID94 Vitals/I & O Vital Sign - Last 24 Hours 08/04/16 08/04/16 08/04/16 08/04/16 15:00 16:06 16:07 16:08 Temp 97.8 97.8 Pulse 66 66 66 66 Resp 16 B/P 172/67 172/67 172/67 172/67 Pulse Ox 94 O2 Delivery Room Air 08/04/16 08/04/16 08/05/16 08/05/16 19:00 23:11 03:00 07:14 Temp 98.1 97.9 97.9 97.5 98.1 97.9 97.9 97.5 Pulse 57 57 66 60 Resp B/P 144/51 143/56 144/55 155/59 Pulse Ox 95 93 91 94 O2 Delivery Room Air Room Air Room Air Room Air 08/05/16 08/05/16 08/05/16 08/05/16 08:00 08:10 08:11 08:12 Pulse 60 60 60 B/P 155/59 155/59 155/59 O2 Delivery Room Air 08/05/16 11:17 Temp 97.9 97.9 Pulse 56 Resp 20 B/P 142/52 Pulse Ox 97 O2 Delivery Room Air Intake and Output 08/04/16 08/04/16 08/05/16 15:00 23:00 07:00 Intake Total 400 ml 300 ml Output Total 400 ml 250 ml Balance 0 ml 50 ml JUMA LIVINGSTON MD Aug 05, 2016 13:48
[2016-08-05] MEDS ORDERED: RIFA550T PO (15:03)
[2016-08-05] MEDS ORDERED: AMLO10TA2 PO (15:03)
--- NOTE | 2016-08-05 15:07 | PDOC3 ---
Discharge Summary [facility] Date of Admission: Aug 03, 2016 Discharge Date: Aug 05, 2016 Admitting Diagnosis chronic cognitive changes, possible 2/2 hepatic dz with high ammonia DM neuropathy dm2 on insulin unsteady gait bl leg weakness Elevated bili, hyperammonemia, chronic portal vein thrombosis Chronic diarrhea thrombocytopenia, 2/2 liver dz with splenmegaly HTN plan: 1. fu with gi, neuro, id, onco 2. LP 08/04 ,result only showed slightly high total protein 3 many labs pending for liver and rheum dz 4. CONT current meds for htn on xifaxan, add lactulose prn, keep BM 2-3 times per day ammonia level daily PTOT EMG done by neuro today, showed polyneuropathy History of Present Illness History of Present Illness feels better today saying chornic cognitive changes, never seen GI before, no cirrhosis, better with abx (not sure why) ammonia level better to 80s today Vitals Vitals Vital Signs Date Time Temp Pulse Resp B/P Pulse Ox O2 Delivery O2 Flow Rate FiO2 08/05/16 11:17 97.9 56 20 142/52 97 Room Air 97.9 Physical Exam Problems: Final Diagnosis Problems Medical Problems: (1) Hyperbilirubinemia Status: Acute (2) Lower extremity weakness Status: Acute (3) Lower extremity weakness Status: Acute CONSULTS gi neuro Brief Hospital Course Mr. Mckinney is a 61 old M, comes for cognitive fluctuating with bl leg unsteady gait for 8months. He has had fatty liver, chronic portal vein thrombosis doesnot need AC. Ammonia was high as 150s, better today to 80s. Pt feels better with xifaxan. EMG + for polyneuropathy. Pt's mental changes is possiblely related with hepatic encephalopathy, He did LP , which only showed high protein as 60s. other labs for hepatic and rheum dz are pending. pt feels good today, stable to dc home, fu with gi and neuro as outpt. dc time 40min. General: Alert, Oriented X3, Cooperative Heart: Regular rate, Normal S1 Lungs: Clear, Other Abdomen: Normal bowel sounds, Soft Extremities: No clubbing, No cyanosis Problems: Disposition home CONDITION AT DISCHARGE: Improved Diet regular Scheduled Ascorbic Acid (Vitamin C) 1,000 MG PO DAILY (Reported) Aspirin (Aspirin) 81 MG PO DAILY (Reported) Cyanocobalamin/Fa/Pyridoxine (Folbic Tablet) Unknown Dose PO DAILY (Reported) Ferrous Sulfate (Ferrous Sulfate) 1 TAB PO DAILY08 (Reported) Furosemide (Lasix) 20 MG PO PRN BID (Reported) Gabapentin (Gabapentin) 1,200 MG PO BID (Reported) Glimepiride (Glimepiride) 4 MG PO BID94 (Reported) Insulin Aspart (Novolog) 10 UNIT SQ TIDAC (Reported) Insulin Detemir (Levemir) 45 UNIT SQ DAILYWLUN (Reported) Linagliptin (Tradjenta) 5 MG PO DAILY (Reported) Metoprolol Tartrate (Metoprolol Tartrate) 1 TAB PO BID92 (Reported) Multivitamin (Multi-Day Vitamins) 1 TAB PO DAILY08 (Reported) Ramipril (Ramipril) 1 CAP PO DAILY08 (Reported) Sucralfate (Carafate) 1 GM PO PRN QID (Reported) Tamsulosin Hcl (Flomax) 1 CAP PO DAILY (Reported) Vitamin E (Vitamin E) 400 UNIT PO DAILY (Reported) Miscellaneous Medications [place]-3 Fatty Acids (Fish Oil) 1,000 MG PO (Reported) Discontinued Medications ([magnesium]) 1 TAB PO DAILY (Reported) Ca Cmb No.1/Vit D3/B-6/Fa/B12 (Vitamin D3 1,000 Unit Tablet) 1 EACH PO DAILY ( Reported) Cranberry Conc/C/Bacill Coag (Cranberry Tablet) 1 EACH PO DAILY (Reported) Cyanocobalamin (Vitamin B-12) (Vitamin B-12) 2,500 MCG SL DAILY (Reported) Gabapentin (Neurontin) 1,200 MG PO PRN BID (Reported) Gluc 2KCL/Chondr/Seema Hy/Hy Ac (Glucosamine & Chondroitin Cap) 1 EACH PO DAILY ( Reported) Insulin Detemir (Levemir Flexpen) 60 UNIT SQ DAILYBFRLUN (Reported) Liraglutide (Victoza 2-Mravel) 1.8 MG SQ DAILYBFRLUN (Reported) Multivitamin (Multivitamins) 1 EACH PO DAILY (Reported) [place]-3 Fatty Acids/Fish Oil ([place] 3 Fish Oil Softgel) 1 EACH PO DAILY ( Reported) Omeprazole (Prilosec) 40 MG PO DAILY (Reported) Pioglitazone Hcl/Metformin Hcl (Pioglitazone-Metformin 15850) 1 TAB PO DAILYWBKFT (Reported) Pioglitazone Hcl/Metformin Hcl (Pioglitazone-Metformin 15-364) 2 TAB PO DAILYBFRSUP (Reported) Ramipril (Ramipril) 20 MG PO DAILY (Reported) Tramadol Hcl (Ultram) 50 MG PO TID PRN (Reported) Follow Up pcp ,gi, neuro in 2 weeks JUMA LIVINGSTON MD Aug 05, 2016 15:07
[2016-08-06 12:18] LABS: WEST NILE IGG CSF Negative (Negative); WEST NILE IGM CSF Negative (Negative)
[2016-08-06 13:23] LABS: MITOCHONDRIAL ABDY 10.1 Units (0.0-20.0); SMOOTH MUSCLE AB 18 Units (0-19)
[2016-08-06 19:13] LABS: ALPHA 1 0.2 g/dL (0.0-0.4); ALPHA 2 0.5 g/dL (0.4-1.0); BETA 0.8 g/dL (0.7-1.3); GAMMA 1.2 g/dL (0.4-1.8); M-SPIKE Not Observed g/dL (Not Observed); PROTEIN TOTAL 5.8 g/dL (6.0-8.5)
--- NOTE | 2016-08-06 22:23 | RESP ---
DATE OF SERVICE: ATTENDING PHYSICIAN: Dr. Moore. The patient's FVC was 2.74, which is 60% predicted, FEV1 of 2.38 which is 70% predicted, the FEV1/FVC ratio was normal. There was no response to bronchodilators. Lung volume showed a total lung capacity of 72% predicted. Residual volume was 100% predicted. Expiratory reserve volume was 48% predicted. Diffusion capacity was normal. IMPRESSION: 1. No significant obstructive airway disease. 2. Mild restrictive pattern seen on lung volumes. It could be pseudorestriction secondary to patient's obesity. 3. Normal diffusion capacity. 4. No response to bronchodilators. TANYA MATHIS MD DR: MARLENE/carlos eduardo JOB#: [id number] / [id number] ALEXSANDER
[2016-08-09 20:09] LABS: LYME DISEASE SERO Negative (Negative)
[2016-08-12 12:21] LABS: ACHR BINDING ABS 0.04 nmol/L (0.00-0.24); ACHR MODULATING AB <12 % (0-20); ACHR STRIATIONAL AB Negative (Neg:<1:40)
== END 2016-08-05 15:15 | disposition home or self-care (01) | DRG 442 ==
LOC: ER 11:48 → 6 SOUTH 13:46
PROVIDERS: ADMIT Internal Medicine; ATTEND Internal Medicine
PROC: 009U3ZX Drainage of Spinal Canal, Percutaneous Approach, Diagnostic (ICD-10-PCS; principal; 2016-08-04)
PROC: B01B1ZZ Fluoroscopy of Spinal Cord using Low Osmolar Contrast (ICD-10-PCS; 2016-08-04)
DX: K72.90 Hepatic failure, unspecified without coma (principal); I82.539 Chronic embolism and thrombosis of unspecified popliteal vein; E11.42 Type 2 diabetes mellitus with diabetic polyneuropathy; K74.60 Unspecified cirrhosis of liver; D69.59 Other secondary thrombocytopenia; E66.9 Obesity, unspecified; E78.5 Hyperlipidemia, unspecified; G47.30 Sleep apnea, unspecified; I11.0 Hypertensive heart disease with heart failure; I50.9 Heart failure, unspecified; K76.0 Fatty (change of) liver, not elsewhere classified; M19.90 Unspecified osteoarthritis, unspecified site; Z79.4 Long term (current) use of insulin; Z82.3 Family history of stroke; Z82.49 Family history of ischemic heart disease and other diseases of the circulatory system; Z83.3 Family history of diabetes mellitus; Z86.73 Personal history of transient ischemic attack (TIA), and cerebral infarction without residual deficits; Z87.11 Personal history of peptic ulcer disease; Z90.49 Acquired absence of other specified parts of digestive tract; Z68.36 Body mass index [BMI] 36.0-36.9, adult; K52.9 Noninfective gastroenteritis and colitis, unspecified
CPT/HCPCS: 36415; 62270; 70450; 71010; 80048; 80076; 81001; 81256; 82105; 82140; 82390; 82525; 82607; 82746; 82787; 82945; 82947; 83036; 83519; 83520; 83540; 83550; 83690; 83880; 83916; 84157; 84165; 84484; 85027; 85651; 86255; 86618; 86788; 86789; 87205; 89051; 93005; 93976; 94060; 94729; J1815; 83516; 84238; 99285-25

== ENCOUNTER → 2016-08-25 | Day surgery (SDC) | payer OTHER ==
[~2016-08-25] MED LIST changes: +AMLO10TA2 PO; +BENZOCAINE ONE 20% MUCOSAL SPRAY.; +BENZOCAINE ONE 20% MUCOSAL SPRAY. MM; +CYAN1TAB19 PO; +DIPHENHYDRAMINE 50 MG/ML VIAL IV ONE; +DIPHENHYDRAMINE 50 MG/ML VIAL ONE; +FENTANYL PF 100 MCG/2 ML VIAL. IV ONE; +FENTANYL PF 100 MCG/2 ML VIAL. ONE; +FERR-26 PO; +GABA600T2 PO; +INSU100C4 SQ; +INSU100V13 SQ; +IV RINGERS,LACTATED 1000ML 1,000 ML IV SCH; +METO25TA4 PO; +MIDAZOLAM HCL/PF 5 MG/5 ML VIAL IV ONE; +MIDAZOLAM HCL/PF 5 MG/5 ML VIAL ONE; +MULT-208 PO; +OMEG500C PO; +OMEP40CA5 PO; +RIFA550T PO; +TAMS0.4C97 PO
--- NOTE | 2016-08-25 10:13 | PDOC1 ---
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 No prior documented varices and needs screening for this. Did have EGD >10 years ago with "ulcer". Details not available. Only occasional dyspepsia now. S/p alex. No pancreatic history. No tobacco or alcohol use. No NSAID use above daily ASA. Chronically variable stools; not bothered overmuch by this. No overt bleeding. Wt/appetite OK. No N or V. Last colonoscopy with the EGD. No GI family history. Past Medical History Cardiovascular: CHF, HTN Pulmonary: Pneumonia, Other (JARETH) CENTRAL NERVOUS SYSTEM: CVA, Periperal neuropathy GI: Peptic Ulcer disease Musculoskeletal: Osteoarthritis Endocrine: Diabetes Past Surgical History Past Surgical History: Cholecystectomy, Other Family History Family History: Coronary Artery Disease, Diabetes, Heart Disease, Hypertension , Stroke Social History Smoke: No ALCOHOL: none Drugs: None Current Medications Current Medications Current Medications Benzocaine (Hurricaine One) 1 spray STK-MED ONCE .ROUTE ; Start 08/25/16 at 09:54 ; Stop 08/25/16 at 09:55; Status DC Midazolam HCl (Versed) 5 mg STK-MED ONCE .ROUTE ; Start 08/25/16 at 09:54; Stop 08/25/16 at 09:55; Status DC Fentanyl Citrate (Fentanyl 2ml Vial) 100 mcg STK-MED ONCE .ROUTE ; Start at 09:54; Stop 08/25/16 at 09:55; Status DC Diphenhydramine HCl 50 mg 50 mg STK-MED ONCE .ROUTE ; Start 08/25/16 at 09:54; Stop 08/25/16 at 09:55; Status DC Lactated Ringer's (Iv Lactated Ringers) 1,000 ml @ 75 mls/hr [id number] IV ; Start 08/25/16 at 10:00; Status UNV Active Scripts Active Xifaxan (Rifaximin) 550 Mg Tablet 550 Mg PO Q12HR Amlodipine Besylate 10 Mg Tablet 10 Mg PO DAILY Reported Metoprolol Tartrate 25 Mg Tablet 1 Tab PO BID92 Ferrous Sulfate 325 Mg Tablet 1 Tab PO DAILY08 Multi-Day Vitamins (Multivitamin) 1 Each Tablet 1 Tab PO DAILY08 Ramipril 10 Mg Capsule 1 Cap PO DAILY08 Novolog (Insulin Aspart) 100 Unit/1 Ml Cartridge 10 Unit SQ TIDAC Levemir (Insulin Detemir) 100 Unit/1 Ml Vial 45 Unit SQ DAILYWLUN Gabapentin 600 Mg Tablet 1,200 Mg PO BID Folbic Tablet (Cyanocobalamin/Fa/Pyridoxine) 1 Each Tablet Unknown Dose PO DAILY Fish Oil ([place]-3 Fatty Acids) 500 Mg Capsule.dr 1,000 Mg PO Flomax (Tamsulosin Hcl) 0.4 Mg Cap.er.24h 1 Cap PO DAILY Vitamin C (Ascorbic Acid) 1,000 Mg Tablet.er 1,000 Mg PO DAILY Vitamin E 400 Unit Capsule 400 Unit PO DAILY Carafate (Sucralfate) 1 Gm Tablet 1 Gm PO PRN QID Aspirin 81 Mg Tab.chew 81 Mg PO DAILY Lasix (Furosemide) 20 Mg Tablet 20 Mg PO PRN BID Tradjenta (Linagliptin) 5 Mg Tablet 5 Mg PO DAILY Glimepiride 4 Mg Tablet 4 Mg PO BID94 Allergies Allergies: Coded Allergies: No Known Drug Allergies (Unverified , 08/25/16) ROS Review of System 10-point review otherwise negative. Physical Exam General: Alert, Oriented X3, Cooperative, No acute distress Lungs: Clear to auscultation Heart: S1S2, RRR, no gallops, no murmurs Abdomen: Normal bowel sounds, Soft, No tenderness, No hepatosplenomegaly, No masses Rectal Exam: deferred Extremities: No cyanosis, No edema Skin: No significant lesion Neuro: Normal speech, Strength at 5/5 X4 ext, Normal tone, Sensation intact, Cranial nerves 3-12 NL, Reflexes 2+ Psych/Mental Status: Mental status NL, Mood NL Vitals Vitals Vital Signs Date Time Temp Pulse Resp B/P Pulse Ox O2 Delivery O2 Flow Rate FiO2 08/25/16 09:41 98.6 60 18 97 98.6 VTE Prophylaxis Ordered VTE Prophylaxis Devices: No VTE Pharmacological Prophylaxi: No Assessment/Plan Assessment/Plan IMP: 1. Cirrhosis/varices? 2. Occasional dyspepsia with h/o "ulcer" 3. Due for CRC screening. Plan: colonoscopy and EGD. NAS KENNEDY MD Aug 25, 2016 10:13
--- NOTE | 2016-08-25 11:39 | PDOC4 ---
PROCEDURE Procedure EGD/colon Indication: dyspepsia/h/o ulcer/portal htn-r/o varices Screening for CRC MEds: fentanyl 100mg iv, versed 5mg iv, benadryl 50mg iv, xylocaine spray to throat Findings: E--grade II varices, distal third. Irregular Z line. G--antral erosions. No gastric varices. D-Small amount of fresh blood in second portion--suspect avm. SINTIA normal. Scope to cecum. mucosa normal. 6mm polyp, distal sigmoid, removed. Small internal hemorrhoids. [place]. well. Await path. f/u in 2 weeks. Start PPI for protection from ASA use-->probable cause of erosive gastropathy today. NAS KENNEDY MD Aug 25, 2016 11:39
[2016-08-25 11:45] VITALS: BP 142/66
--- NOTE | 2016-08-26 15:07 | PATHOLOGY ---
PATHOLOGY REPORT * * * * * * * * FINAL DIAGNOSIS: Colon biopsy, distal sigmoid polyp: - Benign polypoid segment of colonic mucosa showing focal glandular hyperplastic changes, surface erosion, and marked acute and chronic inflammation. COMMENT: The findings are consistent with an inflamed hyperplastic polyp or inflammatory polyp. There is no high grade dysplasia or evidence of malignancy. (JPM:all; d/t: 08/26/2016) REPORT ELECTRONICALLY SIGNED BY: Mark Owens M.D. DATE/TIME: 08/26/2016 15:07 * * * * * * * * GROSS PATHOLOGY: Received in formalin labeled "Kennedy Cifuentes Jessika and distal sigmoid polyp," is a segment of telles soft tissue measuring 0.3 cm in maximum dimension. The specimen is submitted entirely in cassette A1. (TTL; 08/25/2016) INITIAL CPT CODE(S): A; 72444 Professional services performed [place] [facility] [address] Technical services performed by [facility] at [address] [place] [address]. SPECIMEN(S) RECEIVED: A.Distal sigmoid polyp biopsy CLINICAL HISTORY: Screening colonoscopy, screening for esophageal varices; reflux, gastric erosions, small esophageal varices, colon polyp PATIENT: JESSIKA ARCHER JR /AGE: 1 1955 (Age: 61) PATIENT #: [id number] ALT CASE #: SPECIMEN COLLECTION DATE: 08/25/2016 SPECIMEN RECEIVED DATE: 08/25/2016 [facility] - [address] [place] [address] - PHONE: [phone] * * * END OF REPORT * * *
== END | disposition home or self-care (01) ==
LOC: SURG 09:12
PROVIDERS: ATTEND Internal Medicine Gastroenterology
DX: K63.5 Polyp of colon (principal); K64.8 Other hemorrhoids; K31.9 Disease of stomach and duodenum, unspecified; I85.10 Secondary esophageal varices without bleeding; K22.8 Other specified diseases of esophagus; K92.2 Gastrointestinal hemorrhage, unspecified; K30 Functional dyspepsia; M19.90 Unspecified osteoarthritis, unspecified site; Z90.49 Acquired absence of other specified parts of digestive tract
CPT/HCPCS: 43235; 45385; 88305; J1200; J2250; J3010

== ENCOUNTER 2016-11-03 19:33 | Inpatient (IN) | payer OTHER ==
[~2016-11-03] VITALS: Ht 175.3 cm; Wt 115.4 kg
[~2016-11-03 19:33] MED LIST changes: -BENZOCAINE ONE 20% MUCOSAL SPRAY.; -BENZOCAINE ONE 20% MUCOSAL SPRAY. MM; -DIPHENHYDRAMINE 50 MG/ML VIAL IV ONE; -DIPHENHYDRAMINE 50 MG/ML VIAL ONE; -FENTANYL PF 100 MCG/2 ML VIAL. IV ONE; -FENTANYL PF 100 MCG/2 ML VIAL. ONE; -IV RINGERS,LACTATED 1000ML 1,000 ML IV SCH; -MIDAZOLAM HCL/PF 5 MG/5 ML VIAL IV ONE; -MIDAZOLAM HCL/PF 5 MG/5 ML VIAL ONE; -PIOG1TAB PO; +PIOG1TAB34 PO
[2016-11-03 21:50] VITALS: BP 129/52
[2016-11-03] MEDS ORDERED: ACETAMINOPHEN 325 MG TABLET. PO PRN (23:15)
[2016-11-03] MEDS ORDERED: LACTULOSE 20 GM/30 ML SOLUTION. PO PRN (23:15)
[2016-11-03] MEDS ORDERED: MORPHINE SULFATE 2 MG/ML DISP.SYRIN. IV PRN (23:15)
[2016-11-03] MEDS ORDERED: ONDANSETRON PF 4 MG/2 ML VIAL. IV PRN (23:15)
[2016-11-03] MEDS ORDERED: IV 1/2 NORMAL SALINE 1,000 ML IV SCH (23:30)
[2016-11-03 23:40] VITALS: BP 129/52
[2016-11-04 03:25] VITALS: BP 135/52
[2016-11-04 07:00] VITALS: BP 152/64
[2016-11-04 07:20] LABS: BASO # 0.1 x10^3/uL (0.0-0.2); BASO % 1 % (0-3); EOS % 6 % (0-3); HEMATOCRIT 39.6 % (39.0-53.0); HEMOGLOBIN 13.3 g/dL (13.0-17.5); LYMPH # 0.6 x10^3/uL (1.0-4.8); LYMPH % 15 % (24-48); MEAN CORPUSCULAR HEMOGLOBIN 31 pg (25-35); MEAN CORPUSCULAR HGB CONC 34 g/dL (31-37); MEAN CORPUSCULAR VOLUME 91 fL (79-100); MONO % 7 % (0-9); NEUT % 70 % (31-73); PLATELET COUNT 93 x10^3/uL (140-400); RED BLOOD COUNT 4.35 x10^6/uL (4.30-5.70); RED CELL DISTRIBUTION WIDTH 14.5 % (11.5-14.5); WHITE BLOOD COUNT 4.2 x10^3/uL (4.0-11.0)
[2016-11-04 07:30] LABS: INR 1.2 (0.8-1.1); PROTHROMBIN TIME PATIENT 14.7 SEC (11.7-14.0)
[2016-11-04 07:48] LABS: ALBUMIN/GLOBULIN RATIO 0.8 (1.0-1.7); CALCIUM 8.7 mg/dL (8.5-10.1); GFR 75.7; MAGNESIUM 1.7 mg/dL (1.8-2.4); PHOSPHORUS 3.6 mg/dL (2.6-4.7); POTASSIUM 4.3 mmol/L (3.5-5.1); TOTAL BILIRUBIN 1.4 mg/dL (0.2-1.0); TOTAL PROTEIN 6.6 g/dL (6.4-8.2)
[2016-11-04 11:00] VITALS: BP 148/56
[2016-11-04] MEDS ORDERED: SUCRALFATE 1 GM TABLET. PO PRN (11:30)
[2016-11-04] MEDS ORDERED: DEXTROSE 50% 25 GM / 50ML DISP.SYRIN. IV PRN (11:45)
--- NOTE | 2016-11-04 12:19 | PDOC1 ---
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 HAs Paresh, follows with Dr. Frazier, NH4 was 116 at [facility] hence transferred here for GI service, BY the transfer last night, pt not anymore confused, has not had a BM, and has not had his lactulose yet ordered last night. Rest of labs ok, CT head [place] neg, FAmily and pt claims hx stroke, CVA - last mri mos ago showed small 3 strokes?? On rifaximin at home, but no lactulose. CLaims neuropathy is not controlled, but already on high doses gabapentin 1200 BID - and is wary to go higher bef of liver metabolism. FAmily claims his stool is always on soft side despite no lactulose Did discuss about his JARETH Too, as causing lethargy and confusion. He is non compliant with CPAP Past Medical History Cardiovascular: CHF, HTN Pulmonary: Pneumonia, Other CENTRAL NERVOUS SYSTEM: CVA, Periperal neuropathy GI: Peptic Ulcer disease Musculoskeletal: Osteoarthritis Endocrine: Diabetes Past Surgical History Past Surgical History: Cholecystectomy, Other Family History Family History: Coronary Artery Disease, Diabetes, Heart Disease, Hypertension , Stroke Social History Smoke: No ALCOHOL: none Drugs: None Current Medications Current Medications Current Medications Sodium Chloride (Iv Sodium Chloride 0.45%) 1,000 ml @ 80 mls/hr [id number] IV Last administered on 11/04/16t 00:20; Start 11/03/16 at 23:30 Lactulose 20 gm PRN DAILY PRN PO CONSTIPATION; Start 11/03/16 at 23:15 Morphine Sulfate 2 mg PRN Q2HR PRN IV SEVERE PAIN; Start 11/03/16 at 23:15 Ondansetron HCl (Zofran) 4 mg PRN Q6HRS PRN IV NAUSEA/VOMITING; Start 11/03/16 at 23:15 Acetaminophen (Tylenol) 650 mg PRN Q6HRS PRN PO FEVER; Start 11/03/16 at 23:15 Amlodipine Besylate (Norvasc) 10 mg DAILY PO ; Start 11/04/16 at 13:00 Aspirin (Children'S Aspirin) 81 mg DAILY PO ; Start 11/04/16 at 13:00 Vitamin B Complex (Folbic Tablet) 1 tab DAILY PO ; Start 11/04/16 at 13:00 Ferrous Sulfate (Feosol) 325 mg DAILY08 PO ; Start 11/04/16 at 13:00 Furosemide (Lasix) 20 mg PRN BID PO ; Start 11/04/16 at 11:30; Status UNV Linagliptin (Tradjenta) 5 mg DAILY PO ; Start 11/04/16 at 13:00 Metoprolol Tartrate (Lopressor) 25 mg BID92 PO ; Start 11/04/16 at 14:00; Status UNV Rifaximin (Xifaxan) 550 mg Q12HR PO ; Start 11/04/16 at 13:00 Sucralfate (Carafate) 1 gm PRN QID PRN PO .; Start 11/04/16 at 11:30 Tamsulosin HCl (Flomax) 0.4 mg DAILY PO ; Start 11/04/16 at 13:00 Ascorbic Acid (Vitamin C) 1,000 mg DAILY PO ; Start 11/04/16 at 13:00 Gabapentin (Neurontin) 1,200 mg BID PO ; Start 11/04/16 at 13:00 Glimepiride (Amaryl) 4 mg BID94 PO ; Start 11/04/16 at 16:00 Non-Formulary Medication 10 unit TIDAC SQ ; Start 11/04/16 at 11:30; Status UNV Non-Formulary Medication 45 unit DAILYWLUN SQ ; Start 11/04/16 at 12:00; Status UNV Multivitamins (Thera M Plus) 1 tab DAILY08 PO ; Start 11/04/16 at 13:00 Pantoprazole Sodium (Protonix) 40 mg DAILYAC PO ; Start 11/04/16 at 13:00 Lisinopril (Prinivil) 20 mg DAILY08 PO ; Start 11/04/16 at 13:00 Vitamin E 400 unit DAILY PO ; Start 11/04/16 at 13:00 Fish Oil (Fish Oil) 1,000 mg DAILY PO ; Start 11/05/16 at 09:00; Status UNV Active Scripts Active Omeprazole 40 Mg Capsule. 1 Cap PO DAILY 30 Days Xifaxan (Rifaximin) 550 Mg Tablet 550 Mg PO Q12HR Amlodipine Besylate 10 Mg Tablet 10 Mg PO DAILY Reported Metoprolol Tartrate 25 Mg Tablet 1 Tab PO BID92 Ferrous Sulfate 325 Mg Tablet 1 Tab PO DAILY08 Multi-Day Vitamins (Multivitamin) 1 Each Tablet 1 Tab PO DAILY08 Ramipril 10 Mg Capsule 1 Cap PO DAILY08 Novolog (Insulin Aspart) 100 Unit/1 Ml Cartridge 10 Unit SQ TIDAC Levemir (Insulin Detemir) 100 Unit/1 Ml Vial 45 Unit SQ DAILYWLUN Gabapentin 600 Mg Tablet 1,200 Mg PO BID Folbic Tablet (Cyanocobalamin/Fa/Pyridoxine) 1 Each Tablet Unknown Dose PO DAILY Fish Oil ([place]-3 Fatty Acids) 500 Mg Capsule. 1,000 Mg PO Flomax (Tamsulosin Hcl) 0.4 Mg Cap.er.24h 1 Cap PO DAILY Vitamin C (Ascorbic Acid) 1,000 Mg Tablet.er 1,000 Mg PO DAILY Vitamin E 400 Unit Capsule 400 Unit PO DAILY Carafate (Sucralfate) 1 Gm Tablet 1 Gm PO PRN QID Aspirin 81 Mg Tab.chew 81 Mg PO DAILY Lasix (Furosemide) 20 Mg Tablet 20 Mg PO PRN BID Tradjenta (Linagliptin) 5 Mg Tablet 5 Mg PO DAILY Glimepiride 4 Mg Tablet 4 Mg PO BID94 Allergies Allergies: Coded Allergies: No Known Drug Allergies (Unverified , 08/25/16) ROS General: YES: Fatigue, Malaise PSYCHOLOGICAL ROS: YES: Depression Eyes: No Blurry vision, No Decreased vision, No Double vision, No Dry eyes, No Excessive tearing, No Eye Pain, No Itchy Eyes, No Loss of vision, No Other, No Photophobia, No [place], No Uses contacts, No Uses glasses HEENT: No: Epistaxis, Heacaches, Hearing change, Nasal congestion, Nasal discharge, Oral lesions, Other, Sinus pain, Sneezing, Snoring, Sore Throat, Tinnitus, Vertigo, Visual Changes, Vocal changes ALLERGY AND IMMUNOLOGY: No: Hives, Insect Bite Sensitivity, Itchy/Watery Eyes, Nasal Congestion, Other, Post Nasal Drip, Seasonal Allergies Hematological and Lymphatic: No: Bleeding Problems, Blood Clots, Blood Transfusions, Brusing, Night Sweats, Other, Pallor, Swollen Lymph Nodes ENDOCRINE: No: Breast Changes, Galactorrhea, Hair Pattern Changes, Hot Flashes , Malaise/lethargy, Mood Swings, Other, Palpitations, Polydipsia/polyuria, Skin Changes, Temperature Intolerance, Unexpected Weight Changes Breast: No New/Changing Breast Lumps, No Nipple changes, No Nipple discharge, No Other Respiratory: No: Cough, Hemoptysis, Orthopnea, Other, Pleuritic Pain, SOB with excertion, Shortness of breath, Sputum Changes, Stridor, Tachypnea, Wheezing Cardiovascular: No Chest Pain, No Edema, No Lt Headedness, No Orthopnea, No Other, No Palpitations, No Paroxysmal Noc. Dyspnea Gastrointestinal: Yes Diarrhea Genitourinary: No , No , No , No , No , No , No , No Discharge, No Dysuria, No Flank Pain, No Frequency, No Hematuria, No Incontinence, No Other, No Pain, No Retention, No Urgency Musculoskeletal: No Gait Disturbance, No Joint Pain, No Joint Stiffness, No Joint Swelling, No Muscle Pain, No Muscular Weakness, No Other, No Pain In:, No Swelling In: Neurological: Yes Behavorial Changes, Yes Confusion, Yes Gait Disturbance, Yes Memory Loss Skin: No Acne, No Dry Skin, No Eczema, No Hair Changes, No Lumps, No Mole Changes, No Mottling, No Nail Changes, No Other, No Pruritus, No Rash, No Skin Lesion Changes Physical Exam General: Alert, Oriented X3, Cooperative, No acute distress HEENT: Atraumatic, PERRLA, EOMI Lungs: Clear to auscultation, Normal air movement Heart: S1S2, RRR, no thrills, no rubs, no gallops Cardiovascular: S1, S2 Abdomen: Normal bowel sounds, Soft, No tenderness, No hepatosplenomegaly, No masses Male Genitals Exam: normal genitalia, normal prostate Extremities: No clubbing, No cyanosis, No edema, Normal pulses, No tenderness/ swelling Skin: No rashes, No breakdown, No significant lesion Neuro: Normal gait, Normal speech, Strength at 5/5 X4 ext, Normal tone, Sensation intact, Cranial nerves 3-12 NL, Reflexes 2+ Psych/Mental Status: Mental status NL, Mood NL Vitals Vitals Vital Signs Date Time Temp Pulse Resp B/P Pulse Ox O2 Delivery O2 Flow Rate FiO2 11/04/16 11:00 97.7 68 18 148/56 96 Room Air 97.7 Labs Labs Laboratory Tests Test 11/04/16 07:00 11/04/16 07:42 White Blood Count 4.2x10^3/uL (4.0-11.0) Red Blood Count 4.35x10^6/uL (4.30-5.70) Hemoglobin 13.3g/dL (13.0-17.5) Hematocrit 39.6% (39.0-53.0) Mean Corpuscular Volume 91fL (79-100) Mean Corpuscular Hemoglobin 31pg (25-35) Mean Corpuscular Hemoglobin Concent 34g/dL (31-37) Red Cell Distribution Width 14.5% (11.5-14.5) Platelet Count 93x10^3/uL (140-400) Neutrophils (%) (Auto) 70% (31-73) Lymphocytes (%) (Auto) 15% (24-48) Monocytes (%) (Auto) 7% (0-9) Eosinophils (%) (Auto) 6% (0-3) Basophils (%) (Auto) 1% (0-3) Neutrophils # (Auto) 3.0x10^3uL (1.8-7.7) Lymphocytes # (Auto) 0.6x10^3/uL (1.0-4.8) Monocytes # (Auto) 0.3x10^3/uL (0.0-1.1) Eosinophils # (Auto) 0.3x10^3/uL (0.0-0.7) Basophils # (Auto) 0.1x10^3/uL (0.0-0.2) Prothrombin Time 14.7SEC (11.7-14.0) Prothromb Time International Ratio 1.2 (0.8-1.1) Sodium Level 144mmol/L (136-145) Potassium Level 4.3mmol/L (3.5-5.1) Chloride Level 107mmol/L (98-107) Carbon Dioxide Level 30mmol/L (21-32) Anion Gap 7 (6-14) Blood Urea Nitrogen 26mg/dL (8-26) Creatinine 1.0mg/dL (0.7-1.3) Estimated GFR (Cockcroft-Gault) 75.7 BUN/Creatinine Ratio 26 (6-20) Glucose Level 76mg/dL (70-99) Calcium Level 8.7mg/dL (8.5-10.1) Phosphorus Level 3.6mg/dL (2.6-4.7) Magnesium Level 1.7mg/dL (1.8-2.4) Total Bilirubin 1.4mg/dL (0.2-1.0) Aspartate Amino Transf (AST/SGOT) 33U/L (15-37) Alanine Aminotransferase (ALT/SGPT) 37U/L (16-63) Alkaline Phosphatase 59U/L (46-116) Ammonia 63mcmol/L (11-34) Total Protein 6.6g/dL (6.4-8.2) Albumin 3.0g/dL (3.4-5.0) Albumin/Globulin Ratio 0.8 (1.0-1.7) Glucose (Fingerstick) 84mg/dL (70-99) Laboratory Tests Test 11/04/16 07:00 11/04/16 07:42 White Blood Count 4.2x10^3/uL (4.0-11.0) Red Blood Count 4.35x10^6/uL (4.30-5.70) Hemoglobin 13.3g/dL (13.0-17.5) Hematocrit 39.6% (39.0-53.0) Mean Corpuscular Volume 91fL (79-100) Mean Corpuscular Hemoglobin 31pg (25-35) Mean Corpuscular Hemoglobin Concent 34g/dL (31-37) Red Cell Distribution Width 14.5% (11.5-14.5) Platelet Count 93x10^3/uL (140-400) Neutrophils (%) (Auto) 70% (31-73) Lymphocytes (%) (Auto) 15% (24-48) Monocytes (%) (Auto) 7% (0-9) Eosinophils (%) (Auto) 6% (0-3) Basophils (%) (Auto) 1% (0-3) Neutrophils # (Auto) 3.0x10^3uL (1.8-7.7) Lymphocytes # (Auto) 0.6x10^3/uL (1.0-4.8) Monocytes # (Auto) 0.3x10^3/uL (0.0-1.1) Eosinophils # (Auto) 0.3x10^3/uL (0.0-0.7) Basophils # (Auto) 0.1x10^3/uL (0.0-0.2) Prothrombin Time 14.7SEC (11.7-14.0) Prothromb Time International Ratio 1.2 (0.8-1.1) Sodium Level 144mmol/L (136-145) Potassium Level 4.3mmol/L (3.5-5.1) Chloride Level 107mmol/L (98-107) Carbon Dioxide Level 30mmol/L (21-32) Anion Gap 7 (6-14) Blood Urea Nitrogen 26mg/dL (8-26) Creatinine 1.0mg/dL (0.7-1.3) Estimated GFR (Cockcroft-Gault) 75.7 BUN/Creatinine Ratio 26 (6-20) Glucose Level 76mg/dL (70-99) Calcium Level 8.7mg/dL (8.5-10.1) Phosphorus Level 3.6mg/dL (2.6-4.7) Magnesium Level 1.7mg/dL (1.8-2.4) Total Bilirubin 1.4mg/dL (0.2-1.0) Aspartate Amino Transf (AST/SGOT) 33U/L (15-37) Alanine Aminotransferase (ALT/SGPT) 37U/L (16-63) Alkaline Phosphatase 59U/L (46-116) Ammonia 63mcmol/L (11-34) Total Protein 6.6g/dL (6.4-8.2) Albumin 3.0g/dL (3.4-5.0) Albumin/Globulin Ratio 0.8 (1.0-1.7) Glucose (Fingerstick) 84mg/dL (70-99) VTE Prophylaxis Ordered VTE Prophylaxis Devices: Yes VTE Pharmacological Prophylaxi: Yes Assessment/Plan Assessment/Plan 1. WALTER 2. DM 2, uncontrolled with neuropathy, severe 3. Obesity 4. HTN, controlled 5. HX CVA 6. Metabolic enceph POA, resolved 7.,HIgh ammonia 8. Chronic diarrhea/loose stools PLAN: LActulose, scheduled NH4 levels julisa GI consult Resume home meds PT/OT [facility] mRI brain - Hold off neuro consult COnt current gabapentin dose Check hgba1c SSI mod dose (BS 80s here) Dw family LARRY GRAMAJO MD Nov 04, 2016 12:19
[2016-11-04] MEDS: LACTULOSE 20 GM/30 ML SOLUTION. PO SCH ×3 (12:34→21:38)
[2016-11-04] MEDS: FERROUS SULFATE 325 MG TABLET. PO SCH (12:35)
[2016-11-04] MEDS: GABAPENTIN 400 MG CAPSULE. PO SCH ×2 (12:35→21:37)
[2016-11-04] MEDS: TAMSULOSIN 0.4 MG CAP.ER.24H. PO SCH (12:36)
[2016-11-04] MEDS: VITAMIN E 200 UNIT CAPSULE. PO SCH (12:36)
[2016-11-04] MEDS: PANTOPRAZOLE 40 MG TABLET.DR. PO SCH (12:37)
[2016-11-04] MEDS: VITAMIN B12,B9,B6 COMPLEX 1 TABLET. PO SCH (12:38)
[2016-11-04] MEDS: AMLODIPINE BESYLATE 10 MG TABLET. PO SCH (12:38)
[2016-11-04] MEDS: RIFAXIMIN 550 MG TABLET PO SCH ×2 (12:38→21:37)
[2016-11-04] MEDS: ASPIRIN CHEWABLE 81 MG TABLET. PO SCH (12:39)
[2016-11-04] MEDS: LISINOPRIL 20 MG TABLET PO SCH (12:40)
[2016-11-04] MEDS: METOPROLOL TART IMMED RELEASE 25 MG TABLET. PO SCH ×2 (12:40→21:38)
[2016-11-04] MEDS: ASCORBIC ACID 500 MG TABLET PO SCH (12:41)
[2016-11-04] MEDS: MULTIVITAMIN with MINERAL TABLET. PO SCH (12:41)
[2016-11-04] MEDS: LINAGLIPTIN 5 MG TABLET PO SCH (12:42)
[2016-11-04] MEDS: INSULIN ASPART 300 UNITS/3 ML INSULN.PEN SQ SCH ×3 (12:55→17:46)
[2016-11-04] MEDS: INSULIN DETEMIR 300 UNITS/3 ML INSULN.PEN. SQ SCH (12:56)
[2016-11-04 13:02] LABS: CHOLESTEROL/HDL RATIO 3.9
--- NOTE | 2016-11-04 14:01 | PDOC2 ---
NEUROLOGY CONSULT Date of Admission Date of Admission DATE: 11/04/16 TIME: 13:54 Reason for Consult Reason for Consult: Altered mental status Referring Physician Referring Physician: Dr. Ling PCP: Dr. Moreno Source Source: Chart review, Patient History of Present Illness History of Present Illness The patient is a 61-year-old right-handed male transferred from [facility] with confusion and slurred speech. I last saw him in the office a month ago and also have seen him here in February 2016 and July of this year. 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 He has been out of work for several months. He intermittently gets confused and indeed his ammonia level at [facility] was 116. He is feeling better today. There is no history of head injury. He has had seizures in the past. MRI in the past showed old infarcts, but he has had no clinical strokes. Past Medical History Cardiovascular: CHF, HTN, Other (PAT) Pulmonary: Pneumonia, Other (Sleep apnea) CENTRAL NERVOUS SYSTEM: CVA (silent, on MRI), Periperal neuropathy, Seizure, Other (hepatic encephalopathy) GI: GERD, Peptic Ulcer disease Hepatobiliary: Cirrhosis (nonalcoholic), Other (portal hypertension, portal vein thrombosis) Endocrine: Diabetes Past Surgical History Past Surgical History: Cholecystectomy (laparoscopic), Other (implantable loop recorder) Family History Family History: DM Social History Social History , unemployed, no alcohol or tobacco Current Medications Current Medications Current Medications Sodium Chloride (Iv Sodium Chloride 0.45%) 1,000 ml @ 80 mls/hr [id number] IV Last administered on 11/04/16t 00:20; Start 11/03/16 at 23:30; Stop 11/04/16 at 12:02; Status DC Lactulose 20 gm PRN DAILY PRN PO CONSTIPATION; Start 11/03/16 at 23:15; Stop at 12:02; Status DC Morphine Sulfate 2 mg PRN Q2HR PRN IV SEVERE PAIN; Start 11/03/16 at 23:15 Ondansetron HCl (Zofran) 4 mg PRN Q6HRS PRN IV NAUSEA/VOMITING; Start 11/03/16 at 23:15 Acetaminophen (Tylenol) 650 mg PRN Q6HRS PRN PO FEVER; Start 11/03/16 at 23:15 Amlodipine Besylate (Norvasc) 10 mg DAILY PO Last administered on 11/04/16 12: 38; Start 11/04/16 at 13:00 Aspirin (Children'S Aspirin) 81 mg DAILY PO Last administered on 11/04/16 12: 39; Start 11/04/16 at 13:00 Vitamin B Complex (Folbic Tablet) 1 tab DAILY PO Last administered on 12:38; Start 11/04/16 at 13:00 Ferrous Sulfate (Feosol) 325 mg DAILY08 PO Last administered on 11/04/16 12:35 ; Start 11/04/16 at 13:00 Furosemide (Lasix) 20 mg BID92 PO ; Start 11/04/16 at 14:00 Linagliptin (Tradjenta) 5 mg DAILY PO Last administered on 11/04/16 12:42; Start 11/04/16 at 13:00 Metoprolol Tartrate (Lopressor) 25 mg BID PO Last administered on 11/04/16 12: 40; Start 11/04/16 at 13:00 Rifaximin (Xifaxan) 550 mg Q12HR PO Last administered on 11/04/16 12:38; Start 11/04/16 at 13:00 Sucralfate (Carafate) 1 gm PRN QID PRN PO .; Start 11/04/16 at 11:30 Tamsulosin HCl (Flomax) 0.4 mg DAILY PO Last administered on 11/04/16 12:36; Start 11/04/16 at 13:00 Ascorbic Acid (Vitamin C) 1,000 mg DAILY PO Last administered on 11/04/16 12: 41; Start 11/04/16 at 13:00 Gabapentin (Neurontin) 1,200 mg BID PO Last administered on 11/04/16 12:35; Start 11/04/16 at 13:00 Glimepiride (Amaryl) 4 mg BID94 PO ; Start 11/04/16 at 16:00 Insulin Aspart (Novolog) 10 units TIDAC SQ ; Start 11/04/16 at 16:30 Insulin Detemir (Levemir) 45 units DAILYWLUN SQ Last administered on 11/04/16 12:56; Start 11/04/16 at 12:30 Multivitamins (Thera M Plus) 1 tab DAILY08 PO Last administered on 11/04/16 12 :41; Start 11/04/16 at 13:00 Pantoprazole Sodium (Protonix) 40 mg DAILYAC PO Last administered on 11/04/16 12:37; Start 11/04/16 at 13:00 Lisinopril (Prinivil) 20 mg DAILY08 PO Last administered on 11/04/16 12:40; Start 11/04/16 at 13:00 Vitamin E 400 unit DAILY PO Last administered on 11/04/16 12:36; Start at 13:00 Fish Oil (Fish Oil) 1,000 mg DAILY PO ; Start 11/04/16 at 13:00 Lactulose 20 gm QID PO Last administered on 11/04/16 12:34; Start 11/04/16 at 13:00 Insulin Aspart (Novolog) 0-9 UNITS TIDWMEALS SQ Last administered on 11/04/16 12:55; Start 11/04/16 at 12:00 Dextrose (Dextrose 50%-Water Syringe) 12.5 gm PRN Q15MIN PRN IV SEE COMMENTS; Start 11/04/16 at 11:45 Active Scripts Active Omeprazole 40 Mg Capsule. 1 Cap PO DAILY 30 Days Xifaxan (Rifaximin) 550 Mg Tablet 550 Mg PO Q12HR Amlodipine Besylate 10 Mg Tablet 10 Mg PO DAILY Reported Metoprolol Tartrate 25 Mg Tablet 1 Tab PO BID92 Ferrous Sulfate 325 Mg Tablet 1 Tab PO DAILY08 Multi-Day Vitamins (Multivitamin) 1 Each Tablet 1 Tab PO DAILY08 Ramipril 10 Mg Capsule 1 Cap PO DAILY08 Novolog (Insulin Aspart) 100 Unit/1 Ml Cartridge 10 Unit SQ TIDAC Levemir (Insulin Detemir) 100 Unit/1 Ml Vial 45 Unit SQ DAILYWLUN Gabapentin 600 Mg Tablet 1,200 Mg PO BID Folbic Tablet (Cyanocobalamin/Fa/Pyridoxine) 1 Each Tablet Unknown Dose PO DAILY Fish Oil ([place]-3 Fatty Acids) 500 Mg Capsule. 1,000 Mg PO Flomax (Tamsulosin Hcl) 0.4 Mg Cap.er.24h 1 Cap PO DAILY Vitamin C (Ascorbic Acid) 1,000 Mg Tablet.er 1,000 Mg PO DAILY Vitamin E 400 Unit Capsule 400 Unit PO DAILY Carafate (Sucralfate) 1 Gm Tablet 1 Gm PO PRN QID Aspirin 81 Mg Tab.chew 81 Mg PO DAILY Lasix (Furosemide) 20 Mg Tablet 20 Mg PO PRN BID Tradjenta (Linagliptin) 5 Mg Tablet 5 Mg PO DAILY Glimepiride 4 Mg Tablet 4 Mg PO BID94 Allergies Allergies: Coded Allergies: No Known Drug Allergies (Unverified , 08/25/16) ROS Review of System Patient denies fevers, chills, weight loss, dyspnea, angina, abdominal pain, change in bowels, or dysuria. 14 point review of systems is negative. Physical Exam Physical Examination PHYSICAL EXAMINATION: Vital signs: see above. General appearance is normal and in no acute distress. HEENT: Normocephalic and nontraumatic. Eyes, nose, ears, and throat are unremarkable. Neck is supple. No lymphadenopathy. No bruits are heard over the carotid artery. No crepitus. NEUROLOGICAL EXAMINATION: Mental Status Examination: Alert. Oriented to time, place, and person. Answers questions and follows commends. Pupils are equal round and reactive to light and accommodation. Funduscopic exam: No papilledema. Extraocular movements are intact. Visual field exam shows no defect on the direct confrontation. No motor or sensory deficits on the facial exam. Uvula in the midline and the soft palate elevated symmetrically. No deviation of the tongue to any direction. Gross hearing is normal. Shoulder shrug normal. Muscle tone is normal. Muscle strength is 5. Deep tendon reflexes are 0+ all around. Plantar reflex is with flexion response bilaterally. [id number] test performance is accurate. Alternative movements are accurate. Gait is mildly apraxic. Sensory exam shows stocking loss. No cerebellar signs are elicited. No asterixis Vitals VITALS Vital Signs Date Time Temp Pulse Resp B/P Pulse Ox O2 Delivery O2 Flow Rate FiO2 11/04/16 12:40 68 148/56 11/04/16 11:00 97.7 18 96 Room Air 97.7 Labs Labs Laboratory Tests Test 11/04/16 07:00 11/04/16 07:42 11/04/16 12:27 White Blood Count 4.2x10^3/uL (4.0-11.0) Red Blood Count 4.35x10^6/uL (4.30-5.70) Hemoglobin 13.3g/dL (13.0-17.5) Hematocrit 39.6% (39.0-53.0) Mean Corpuscular Volume 91fL (79-100) Mean Corpuscular Hemoglobin 31pg (25-35) Mean Corpuscular Hemoglobin Concent 34g/dL (31-37) Red Cell Distribution Width 14.5% (11.5-14.5) Platelet Count 93x10^3/uL (140-400) Neutrophils (%) (Auto) 70% (31-73) Lymphocytes (%) (Auto) 15% (24-48) Monocytes (%) (Auto) 7% (0-9) Eosinophils (%) (Auto) 6% (0-3) Basophils (%) (Auto) 1% (0-3) Neutrophils # (Auto) 3.0x10^3uL (1.8-7.7) Lymphocytes # (Auto) 0.6x10^3/uL (1.0-4.8) Monocytes # (Auto) 0.3x10^3/uL (0.0-1.1) Eosinophils # (Auto) 0.3x10^3/uL (0.0-0.7) Basophils # (Auto) 0.1x10^3/uL (0.0-0.2) Prothrombin Time 14.7SEC (11.7-14.0) Prothromb Time International Ratio 1.2 (0.8-1.1) Sodium Level 144mmol/L (136-145) Potassium Level 4.3mmol/L (3.5-5.1) Chloride Level 107mmol/L (98-107) Carbon Dioxide Level 30mmol/L (21-32) Anion Gap 7 (6-14) Blood Urea Nitrogen 26mg/dL (8-26) Creatinine 1.0mg/dL (0.7-1.3) Estimated GFR (Cockcroft-Gault) 75.7 BUN/Creatinine Ratio 26 (6-20) Glucose Level 76mg/dL (70-99) Calcium Level 8.7mg/dL (8.5-10.1) Phosphorus Level 3.6mg/dL (2.6-4.7) Magnesium Level 1.7mg/dL (1.8-2.4) Total Bilirubin 1.4mg/dL (0.2-1.0) Aspartate Amino Transf (AST/SGOT) 33U/L (15-37) Alanine Aminotransferase (ALT/SGPT) 37U/L (16-63) Alkaline Phosphatase 59U/L (46-116) Ammonia 63mcmol/L (11-34) Total Protein 6.6g/dL (6.4-8.2) Albumin 3.0g/dL (3.4-5.0) Albumin/Globulin Ratio 0.8 (1.0-1.7) Triglycerides Level 124mg/dL (0-150) Cholesterol Level 120mg/dL (0-200) LDL Cholesterol, Calculated 64mg/dL (0-100) VLDL Cholesterol, Calculated 25mg/dL (0-40) HDL Cholesterol 31mg/dL (40-60) Cholesterol/HDL Ratio 3.9 Glucose (Fingerstick) 84mg/dL (70-99) 347mg/dL (70-99) Laboratory Tests Test 11/04/16 07:00 11/04/16 07:42 11/04/16 12:27 White Blood Count 4.2x10^3/uL (4.0-11.0) Red Blood Count 4.35x10^6/uL (4.30-5.70) Hemoglobin 13.3g/dL (13.0-17.5) Hematocrit 39.6% (39.0-53.0) Mean Corpuscular Volume 91fL (79-100) Mean Corpuscular Hemoglobin 31pg (25-35) Mean Corpuscular Hemoglobin Concent 34g/dL (31-37) Red Cell Distribution Width 14.5% (11.5-14.5) Platelet Count 93x10^3/uL (140-400) Neutrophils (%) (Auto) 70% (31-73) Lymphocytes (%) (Auto) 15% (24-48) Monocytes (%) (Auto) 7% (0-9) Eosinophils (%) (Auto) 6% (0-3) Basophils (%) (Auto) 1% (0-3) Neutrophils # (Auto) 3.0x10^3uL (1.8-7.7) Lymphocytes # (Auto) 0.6x10^3/uL (1.0-4.8) Monocytes # (Auto) 0.3x10^3/uL (0.0-1.1) Eosinophils # (Auto) 0.3x10^3/uL (0.0-0.7) Basophils # (Auto) 0.1x10^3/uL (0.0-0.2) Prothrombin Time 14.7SEC (11.7-14.0) Prothromb Time International Ratio 1.2 (0.8-1.1) Sodium Level 144mmol/L (136-145) Potassium Level 4.3mmol/L (3.5-5.1) Chloride Level 107mmol/L (98-107) Carbon Dioxide Level 30mmol/L (21-32) Anion Gap 7 (6-14) Blood Urea Nitrogen 26mg/dL (8-26) Creatinine 1.0mg/dL (0.7-1.3) Estimated GFR (Cockcroft-Gault) 75.7 BUN/Creatinine Ratio 26 (6-20) Glucose Level 76mg/dL (70-99) Calcium Level 8.7mg/dL (8.5-10.1) Phosphorus Level 3.6mg/dL (2.6-4.7) Magnesium Level 1.7mg/dL (1.8-2.4) Total Bilirubin 1.4mg/dL (0.2-1.0) Aspartate Amino Transf (AST/SGOT) 33U/L (15-37) Alanine Aminotransferase (ALT/SGPT) 37U/L (16-63) Alkaline Phosphatase 59U/L (46-116) Ammonia 63mcmol/L (11-34) Total Protein 6.6g/dL (6.4-8.2) Albumin 3.0g/dL (3.4-5.0) Albumin/Globulin Ratio 0.8 (1.0-1.7) Triglycerides Level 124mg/dL (0-150) Cholesterol Level 120mg/dL (0-200) LDL Cholesterol, Calculated 64mg/dL (0-100) VLDL Cholesterol, Calculated 25mg/dL (0-40) HDL Cholesterol 31mg/dL (40-60) Cholesterol/HDL Ratio 3.9 Glucose (Fingerstick) 84mg/dL (70-99) 347mg/dL (70-99) Images Images CT head yesterday at [facility], negative EEG, 02/27/16, normal Assessment/Plan Assessment/Plan Impression: Hepatic encephalopathy, improved Diabetic neuropathy Recommendations: No additional studies needed at this time. Agree with rifaximin and lactulose I will follow along with you. Thank you for letting me help with the patient's care. JONO GARZA MD Nov 04, 2016 14:00
--- NOTE | 2016-11-04 14:45 | PDOC2 ---
CONSULT Date of Consult Date of Consult DATE: 11/04/16 TIME: 14:43 Reason for Consult Reason for Consult: Cirrhosis/encephalopathy Past Medical History Cardiovascular: CHF, HTN, Other Pulmonary: Pneumonia, Other CENTRAL NERVOUS SYSTEM: CVA, Periperal neuropathy, Seizure, Other GI: GERD, Peptic Ulcer disease Hepatobiliary: Cirrhosis, Other Musculoskeletal: Osteoarthritis Endocrine: Diabetes Past Surgical History Past Surgical History: Cholecystectomy, Other Family History Family History: Coronary Artery Disease, Diabetes, Heart Disease, Hypertension , Stroke Social History No ALCOHOL: none Drugs: None Lives: with Family Current Medications Current Medications Current Medications Sodium Chloride (Iv Sodium Chloride 0.45%) 1,000 ml @ 80 mls/hr [id number] IV Last administered on 11/04/16 00:20; Start 11/03/16 at 23:30; Stop 11/04/16 at 12:02; Status DC Lactulose 20 gm PRN DAILY PRN PO CONSTIPATION; Start 11/03/16 at 23:15; Stop at 12:02; Status DC Morphine Sulfate 2 mg PRN Q2HR PRN IV SEVERE PAIN; Start 11/03/16 at 23:15 Ondansetron HCl (Zofran) 4 mg PRN Q6HRS PRN IV NAUSEA/VOMITING; Start 11/03/16 at 23:15 Acetaminophen (Tylenol) 650 mg PRN Q6HRS PRN PO FEVER; Start 11/03/16 at 23:15 Amlodipine Besylate (Norvasc) 10 mg DAILY PO Last administered on 11/04/16 12: 38; Start 11/04/16 at 13:00 Aspirin (Children'S Aspirin) 81 mg DAILY PO Last administered on 11/04/16 12: 39; Start 11/04/16 at 13:00 Vitamin B Complex (Folbic Tablet) 1 tab DAILY PO Last administered on 12:38; Start 11/04/16 at 13:00 Ferrous Sulfate (Feosol) 325 mg DAILY08 PO Last administered on 11/04/16 12:35 ; Start 11/04/16 at 13:00 Furosemide (Lasix) 20 mg BID92 PO ; Start 11/04/16 at 14:00 Linagliptin (Tradjenta) 5 mg DAILY PO Last administered on 11/04/16 12:42; Start 11/04/16 at 13:00 Metoprolol Tartrate (Lopressor) 25 mg BID PO Last administered on 11/04/16 12: 40; Start 11/04/16 at 13:00 Rifaximin (Xifaxan) 550 mg Q12HR PO Last administered on 11/04/16 12:38; Start 11/04/16 at 13:00 Sucralfate (Carafate) 1 gm PRN QID PRN PO .; Start 11/04/16 at 11:30 Tamsulosin HCl (Flomax) 0.4 mg DAILY PO Last administered on 11/04/16 12:36; Start 11/04/16 at 13:00 Ascorbic Acid (Vitamin C) 1,000 mg DAILY PO Last administered on 11/04/16 12: 41; Start 11/04/16 at 13:00 Gabapentin (Neurontin) 1,200 mg BID PO Last administered on 11/04/16 12:35; Start 11/04/16 at 13:00 Glimepiride (Amaryl) 4 mg BID94 PO ; Start 11/04/16 at 16:00 Insulin Aspart (Novolog) 10 units TIDAC SQ ; Start 11/04/16 at 16:30 Insulin Detemir (Levemir) 45 units DAILYWLUN SQ Last administered on 11/04/16 12:56; Start 11/04/16 at 12:30 Multivitamins (Thera M Plus) 1 tab DAILY08 PO Last administered on 11/04/16 12 :41; Start 11/04/16 at 13:00 Pantoprazole Sodium (Protonix) 40 mg DAILYAC PO Last administered on 11/04/16 12:37; Start 11/04/16 at 13:00 Lisinopril (Prinivil) 20 mg DAILY08 PO Last administered on 11/04/16 12:40; Start 11/04/16 at 13:00 Vitamin E 400 unit DAILY PO Last administered on 11/04/16 12:36; Start at 13:00 Fish Oil (Fish Oil) 1,000 mg DAILY PO ; Start 11/04/16 at 13:00 Lactulose 20 gm QID PO Last administered on 11/04/16 12:34; Start 11/04/16 at 13:00 Insulin Aspart (Novolog) 0-9 UNITS TIDWMEALS SQ Last administered on 11/04/16t 12:55; Start 11/04/16 at 12:00 Dextrose (Dextrose 50%-Water Syringe) 12.5 gm PRN Q15MIN PRN IV SEE COMMENTS; Start 11/04/16 at 11:45 Active Scripts Active Omeprazole 40 Mg Capsule. 1 Cap PO DAILY 30 Days Xifaxan (Rifaximin) 550 Mg Tablet 550 Mg PO Q12HR Amlodipine Besylate 10 Mg Tablet 10 Mg PO DAILY Reported Metoprolol Tartrate 25 Mg Tablet 1 Tab PO BID92 Ferrous Sulfate 325 Mg Tablet 1 Tab PO DAILY08 Multi-Day Vitamins (Multivitamin) 1 Each Tablet 1 Tab PO DAILY08 Ramipril 10 Mg Capsule 1 Cap PO DAILY08 Novolog (Insulin Aspart) 100 Unit/1 Ml Cartridge 10 Unit SQ TIDAC Levemir (Insulin Detemir) 100 Unit/1 Ml Vial 45 Unit SQ DAILYWLUN Gabapentin 600 Mg Tablet 1,200 Mg PO BID Folbic Tablet (Cyanocobalamin/Fa/Pyridoxine) 1 Each Tablet Unknown Dose PO DAILY Fish Oil ([place]-3 Fatty Acids) 500 Mg Capsule. 1,000 Mg PO Flomax (Tamsulosin Hcl) 0.4 Mg Cap.er.24h 1 Cap PO DAILY Vitamin C (Ascorbic Acid) 1,000 Mg Tablet.er 1,000 Mg PO DAILY Vitamin E 400 Unit Capsule 400 Unit PO DAILY Carafate (Sucralfate) 1 Gm Tablet 1 Gm PO PRN QID Aspirin 81 Mg Tab.chew 81 Mg PO DAILY Lasix (Furosemide) 20 Mg Tablet 20 Mg PO PRN BID Tradjenta (Linagliptin) 5 Mg Tablet 5 Mg PO DAILY Glimepiride 4 Mg Tablet 4 Mg PO BID94 Allergies Allergies: Coded Allergies: No Known Drug Allergies (Unverified , 08/25/16) Vitals VITALS Vital Signs Date Time Temp Pulse Resp B/P Pulse Ox O2 Delivery O2 Flow Rate FiO2 11/04/16 12:40 68 148/56 11/04/16 11:00 97.7 18 96 Room Air 97.7 Labs Labs Laboratory Tests Test 11/04/16 07:00 11/04/16 07:42 11/04/16 12:27 White Blood Count 4.2x10^3/uL (4.0-11.0) Red Blood Count 4.35x10^6/uL (4.30-5.70) Hemoglobin 13.3g/dL (13.0-17.5) Hematocrit 39.6% (39.0-53.0) Mean Corpuscular Volume 91fL (79-100) Mean Corpuscular Hemoglobin 31pg (25-35) Mean Corpuscular Hemoglobin Concent 34g/dL (31-37) Red Cell Distribution Width 14.5% (11.5-14.5) Platelet Count 93x10^3/uL (140-400) Neutrophils (%) (Auto) 70% (31-73) Lymphocytes (%) (Auto) 15% (24-48) Monocytes (%) (Auto) 7% (0-9) Eosinophils (%) (Auto) 6% (0-3) Basophils (%) (Auto) 1% (0-3) Neutrophils # (Auto) 3.0x10^3uL (1.8-7.7) Lymphocytes # (Auto) 0.6x10^3/uL (1.0-4.8) Monocytes # (Auto) 0.3x10^3/uL (0.0-1.1) Eosinophils # (Auto) 0.3x10^3/uL (0.0-0.7) Basophils # (Auto) 0.1x10^3/uL (0.0-0.2) Prothrombin Time 14.7SEC (11.7-14.0) Prothromb Time International Ratio 1.2 (0.8-1.1) Sodium Level 144mmol/L (136-145) Potassium Level 4.3mmol/L (3.5-5.1) Chloride Level 107mmol/L (98-107) Carbon Dioxide Level 30mmol/L (21-32) Anion Gap 7 (6-14) Blood Urea Nitrogen 26mg/dL (8-26) Creatinine 1.0mg/dL (0.7-1.3) Estimated GFR (Cockcroft-Gault) 75.7 BUN/Creatinine Ratio 26 (6-20) Glucose Level 76mg/dL (70-99) Calcium Level 8.7mg/dL (8.5-10.1) Phosphorus Level 3.6mg/dL (2.6-4.7) Magnesium Level 1.7mg/dL (1.8-2.4) Total Bilirubin 1.4mg/dL (0.2-1.0) Aspartate Amino Transf (AST/SGOT) 33U/L (15-37) Alanine Aminotransferase (ALT/SGPT) 37U/L (16-63) Alkaline Phosphatase 59U/L (46-116) Ammonia 63mcmol/L (11-34) Total Protein 6.6g/dL (6.4-8.2) Albumin 3.0g/dL (3.4-5.0) Albumin/Globulin Ratio 0.8 (1.0-1.7) Triglycerides Level 124mg/dL (0-150) Cholesterol Level 120mg/dL (0-200) LDL Cholesterol, Calculated 64mg/dL (0-100) VLDL Cholesterol, Calculated 25mg/dL (0-40) HDL Cholesterol 31mg/dL (40-60) Cholesterol/HDL Ratio 3.9 Glucose (Fingerstick) 84mg/dL (70-99) 347mg/dL (70-99) Laboratory Tests Test 11/04/16 07:00 11/04/16 07:42 11/04/16 12:27 White Blood Count 4.2x10^3/uL (4.0-11.0) Red Blood Count 4.35x10^6/uL (4.30-5.70) Hemoglobin 13.3g/dL (13.0-17.5) Hematocrit 39.6% (39.0-53.0) Mean Corpuscular Volume 91fL (79-100) Mean Corpuscular Hemoglobin 31pg (25-35) Mean Corpuscular Hemoglobin Concent 34g/dL (31-37) Red Cell Distribution Width 14.5% (11.5-14.5) Platelet Count 93x10^3/uL (140-400) Neutrophils (%) (Auto) 70% (31-73) Lymphocytes (%) (Auto) 15% (24-48) Monocytes (%) (Auto) 7% (0-9) Eosinophils (%) (Auto) 6% (0-3) Basophils (%) (Auto) 1% (0-3) Neutrophils # (Auto) 3.0x10^3uL (1.8-7.7) Lymphocytes # (Auto) 0.6x10^3/uL (1.0-4.8) Monocytes # (Auto) 0.3x10^3/uL (0.0-1.1) Eosinophils # (Auto) 0.3x10^3/uL (0.0-0.7) Basophils # (Auto) 0.1x10^3/uL (0.0-0.2) Prothrombin Time 14.7SEC (11.7-14.0) Prothromb Time International Ratio 1.2 (0.8-1.1) Sodium Level 144mmol/L (136-145) Potassium Level 4.3mmol/L (3.5-5.1) Chloride Level 107mmol/L (98-107) Carbon Dioxide Level 30mmol/L (21-32) Anion Gap 7 (6-14) Blood Urea Nitrogen 26mg/dL (8-26) Creatinine 1.0mg/dL (0.7-1.3) Estimated GFR (Cockcroft-Gault) 75.7 BUN/Creatinine Ratio 26 (6-20) Glucose Level 76mg/dL (70-99) Calcium Level 8.7mg/dL (8.5-10.1) Phosphorus Level 3.6mg/dL (2.6-4.7) Magnesium Level 1.7mg/dL (1.8-2.4) Total Bilirubin 1.4mg/dL (0.2-1.0) Aspartate Amino Transf (AST/SGOT) 33U/L (15-37) Alanine Aminotransferase (ALT/SGPT) 37U/L (16-63) Alkaline Phosphatase 59U/L (46-116) Ammonia 63mcmol/L (11-34) Total Protein 6.6g/dL (6.4-8.2) Albumin 3.0g/dL (3.4-5.0) Albumin/Globulin Ratio 0.8 (1.0-1.7) Triglycerides Level 124mg/dL (0-150) Cholesterol Level 120mg/dL (0-200) LDL Cholesterol, Calculated 64mg/dL (0-100) VLDL Cholesterol, Calculated 25mg/dL (0-40) HDL Cholesterol 31mg/dL (40-60) Cholesterol/HDL Ratio 3.9 Glucose (Fingerstick) 84mg/dL (70-99) 347mg/dL (70-99) Assessment/Plan Assessment/Plan Cirrhosis- with encephalopathy/portal vein thrombosis, incerasing weight worrisome for fluid retention Plan us abd to assess for ascites/possible paracentesis lactulose therapy/xifixam therapy Full note dictated NAS WHITOMRE MD Nov 04, 2016 14:45
[2016-11-04 15:00] VITALS: BP 152/55
--- NOTE | 2016-11-04 16:27 | RAD ---
Indication cirrhosis. Assess for ascites. A limited examination of the abdomen was performed. Examination was performed to assess for ascites. No free fluid was seen in the abdomen. IMPRESSION: Negative examination for ascites
[2016-11-04] MEDS: OMEGA-3 FATTY ACIDS/FISH OIL 1,000 MG CAPSULE. PO SCH (17:33)
[2016-11-04] MEDS: GLIMEPIRIDE 2 MG TABLET. PO SCH (17:33)
[2016-11-04] MEDS: FUROSEMIDE 20 MG TABLET PO SCH (17:34)
[2016-11-04 19:59] VITALS: BP 150/54
--- NOTE | 2016-11-04 21:06 | RAD ---
PROCEDURE Brain MRI without contrast. HISTORY Confusion. Weakness. TECHNIQUE Multiplanar and multi sequence magnetic resonance imaging of the brain was performed without contrast. COMPARISON 02/05/2016 FINDINGS There is a focus of increased signal on diffusion-weighted images within the mid brain to left of midline at the level of the tectum. Given the presence of T2 hyperintensity within this location, this is likely due to an acute or subacute infarct rather than artifact. No additional restricted diffusion is seen. There is no mass effect or midline shift. There is no hydrocephalus. There is a focus of susceptibility effect within the right thalamus likely due to chronic microhemorrhage or a chronic hemorrhagic infarct. There is also susceptibility effect due to mineral deposition within the basal ganglia. There are scattered foci of signal change within the cerebral white matter and left vahe, likely due to chronic small vessel disease. The orbits and paranasal sinuses are unremarkable. The mastoid air cells are unremarkable. There are normal flow voids within the cerebral vessels. IMPRESSION 1. Small focus of increased signal on diffusion-weighted images within the mid brain to the left of midline at the level of the tectum, likely due to an acute or subacute infarct rather than artifact. 2. Suspected chronic hemorrhage or hemorrhagic infarct within the right thalamus. 3. Scattered foci of signal change within the cerebral white matter and vahe, likely due to chronic small vessel disease. Findings were discussed with Johanna, the nurse caring for the patient, at 2100 hours on 11/04/2016. Electronically signed by: Elba Westfall (Nov 04, 2016 21:06:00)
[2016-11-04 23:08] VITALS: BP 134/55
[2016-11-05 03:47] VITALS: BP 118/44
[2016-11-05 07:10] VITALS: BP 139/50
[2016-11-05] MEDS: INSULIN ASPART 300 UNITS/3 ML INSULN.PEN SQ SCH ×4 (07:30→14:06)
[2016-11-05] MEDS: LACTULOSE 20 GM/30 ML SOLUTION. PO SCH ×2 (08:22→13:00)
[2016-11-05] MEDS: ASCORBIC ACID 500 MG TABLET PO SCH (08:23)
[2016-11-05] MEDS: LISINOPRIL 20 MG TABLET PO SCH (08:23)
[2016-11-05] MEDS: ASPIRIN CHEWABLE 81 MG TABLET. PO SCH (08:24)
[2016-11-05] MEDS: AMLODIPINE BESYLATE 10 MG TABLET. PO SCH (08:24)
[2016-11-05] MEDS: GABAPENTIN 400 MG CAPSULE. PO SCH (08:25)
[2016-11-05] MEDS: TAMSULOSIN 0.4 MG CAP.ER.24H. PO SCH (08:25)
[2016-11-05] MEDS: FERROUS SULFATE 325 MG TABLET. PO SCH (08:26)
[2016-11-05] MEDS: GLIMEPIRIDE 2 MG TABLET. PO SCH (08:26)
[2016-11-05] MEDS: OMEGA-3 FATTY ACIDS/FISH OIL 1,000 MG CAPSULE. PO SCH (08:26)
[2016-11-05] MEDS: PANTOPRAZOLE 40 MG TABLET.DR. PO SCH (08:27)
[2016-11-05] MEDS: RIFAXIMIN 550 MG TABLET PO SCH (08:27)
[2016-11-05] MEDS: VITAMIN B12,B9,B6 COMPLEX 1 TABLET. PO SCH (08:28)
[2016-11-05] MEDS: METOPROLOL TART IMMED RELEASE 25 MG TABLET. PO SCH (08:28)
[2016-11-05] MEDS: MULTIVITAMIN with MINERAL TABLET. PO SCH (08:28)
[2016-11-05] MEDS: VITAMIN E 200 UNIT CAPSULE. PO SCH (08:28)
[2016-11-05] MEDS: FUROSEMIDE 20 MG TABLET PO SCH ×2 (08:29→13:47)
[2016-11-05] MEDS: LINAGLIPTIN 5 MG TABLET PO SCH (08:29)
--- NOTE | 2016-11-05 10:19 | PDOC ---
PROGRESS NOTES Assessment Hepatic encephalopathy, improved clinically albeit with continued high ammonia level Diabetic neuropathy History of abnormal MRI, no clinical history of strokes Plan Continue present supportive care No additional neurological studies needed Subjective No complaints Objective Vital Signs Date Time Temp Pulse Resp B/P Pulse Ox O2 Delivery O2 Flow Rate FiO2 11/05/16 08:28 60 139/50 11/05/16 08:00 Room Air 11/05/16 07:10 98.3 19 96 98.3 Intake and Output 11/05/16 06:59 Intake Total 760 ml Output Total 950 ml Balance -190 ml Intake Oral 760 ml Output Urine Total 950 ml # Voids 3 # Bowel Movements 2 PHYSICAL EXAM Alert. Oriented to time, place and person. PERRL. EOMI. CN: no focal findings. Muscle tone: normal. Muscle strength: 5/5 DTR: 1+ Plantar reflex: Flexor Gait: not examined in bed. Sensory exam: Stocking loss. No cerebellar signs elicited. He does have some asterixis today Review of Relevant I have reviewed the following items kailash (where applicable) has been applied. Labs Laboratory Tests Test 11/04/16 07:00 11/04/16 07:42 11/04/16 12:27 11/04/16 17:06 White Blood Count 4.2x10^3/uL (4.0-11.0) Red Blood Count 4.35x10^6/uL (4.30-5.70) Hemoglobin 13.3g/dL (13.0-17.5) Hematocrit 39.6% (39.0-53.0) Mean Corpuscular Volume 91fL (79-100) Mean Corpuscular Hemoglobin 31pg (25-35) Mean Corpuscular Hemoglobin Concent 34g/dL (31-37) Red Cell Distribution Width 14.5% (11.5-14.5) Platelet Count 93x10^3/uL (140-400) Neutrophils (%) (Auto) 70% (31-73) Lymphocytes (%) (Auto) 15% (24-48) Monocytes (%) (Auto) 7% (0-9) Eosinophils (%) (Auto) 6% (0-3) Basophils (%) (Auto) 1% (0-3) Neutrophils # (Auto) 3.0x10^3uL (1.8-7.7) Lymphocytes # (Auto) 0.6x10^3/uL (1.0-4.8) Monocytes # (Auto) 0.3x10^3/uL (0.0-1.1) Eosinophils # (Auto) 0.3x10^3/uL (0.0-0.7) Basophils # (Auto) 0.1x10^3/uL (0.0-0.2) Prothrombin Time 14.7SEC (11.7-14.0) Prothromb Time International Ratio 1.2 (0.8-1.1) Sodium Level 144mmol/L (136-145) Potassium Level 4.3mmol/L (3.5-5.1) Chloride Level 107mmol/L (98-107) Carbon Dioxide Level 30mmol/L (21-32) Anion Gap 7 (6-14) Blood Urea Nitrogen 26mg/dL (8-26) Creatinine 1.0mg/dL (0.7-1.3) Estimated GFR (Cockcroft-Gault) 75.7 BUN/Creatinine Ratio 26 (6-20) Glucose Level 76mg/dL (70-99) Hemoglobin A1c 7.3% (4.8-5.6) Calcium Level 8.7mg/dL (8.5-10.1) Phosphorus Level 3.6mg/dL (2.6-4.7) Magnesium Level 1.7mg/dL (1.8-2.4) Total Bilirubin 1.4mg/dL (0.2-1.0) Aspartate Amino Transf (AST/SGOT) 33U/L (15-37) Alanine Aminotransferase (ALT/SGPT) 37U/L (16-63) Alkaline Phosphatase 59U/L (46-116) Ammonia 63mcmol/L (11-34) Total Protein 6.6g/dL (6.4-8.2) Albumin 3.0g/dL (3.4-5.0) Albumin/Globulin Ratio 0.8 (1.0-1.7) Triglycerides Level 124mg/dL (0-150) Cholesterol Level 120mg/dL (0-200) LDL Cholesterol, Calculated 64mg/dL (0-100) VLDL Cholesterol, Calculated 25mg/dL (0-40) HDL Cholesterol 31mg/dL (40-60) Cholesterol/HDL Ratio 3.9 Glucose (Fingerstick) 84mg/dL (70-99) 347mg/dL (70-99) 246mg/dL (70-99) Test 11/04/16 21:13 11/05/16 03:20 11/05/16 07:12 Glucose (Fingerstick) 108mg/dL (70-99) 88mg/dL (70-99) Ammonia 92mcmol/L (11-34) Laboratory Tests Test 11/04/16 12:27 11/04/16 17:06 11/04/16 21:13 11/05/16 03:20 Glucose (Fingerstick) 347mg/dL (70-99) 246mg/dL (70-99) 108mg/dL (70-99) Ammonia 92mcmol/L (11-34) Test 11/05/16 07:12 Glucose (Fingerstick) 88mg/dL (70-99) Medications Current Medications Sodium Chloride (Iv Sodium Chloride 0.45%) 1,000 ml @ 80 mls/hr [id number] IV Last administered on 11/04/16 00:20; Start 11/03/16 at 23:30; Stop 11/04/16 at 12:02; Status DC Lactulose 20 gm PRN DAILY PRN PO CONSTIPATION; Start 11/03/16 at 23:15; Stop at 12:02; Status DC Morphine Sulfate 2 mg PRN Q2HR PRN IV SEVERE PAIN; Start 11/03/16 at 23:15 Ondansetron HCl (Zofran) 4 mg PRN Q6HRS PRN IV NAUSEA/VOMITING; Start 11/03/16 at 23:15 Acetaminophen (Tylenol) 650 mg PRN Q6HRS PRN PO FEVER; Start 11/03/16 at 23:15 Amlodipine Besylate (Norvasc) 10 mg DAILY PO Last administered on 11/05/16 08: 24; Start 11/04/16 at 13:00 Aspirin (Children'S Aspirin) 81 mg DAILY PO Last administered on 11/05/16 08: 24; Start 11/04/16 at 13:00 Vitamin B Complex (Folbic Tablet) 1 tab DAILY PO Last administered on 08:28; Start 11/04/16 at 13:00 Ferrous Sulfate (Feosol) 325 mg DAILY08 PO Last administered on 11/05/16 08:26 ; Start 11/04/16 at 13:00 Furosemide (Lasix) 20 mg BID92 PO Last administered on 11/05/16 08:29; Start 11/04/16 at 14:00 Linagliptin (Tradjenta) 5 mg DAILY PO Last administered on 11/05/16 08:29; Start 11/04/16 at 13:00 Metoprolol Tartrate (Lopressor) 25 mg BID PO Last administered on 11/05/16 08: 28; Start 11/04/16 at 13:00 Rifaximin (Xifaxan) 550 mg Q12HR PO Last administered on 11/05/16 08:27; Start 11/04/16 at 13:00 Sucralfate (Carafate) 1 gm PRN QID PRN PO .; Start 11/04/16 at 11:30 Tamsulosin HCl (Flomax) 0.4 mg DAILY PO Last administered on 11/05/16 08:25; Start 11/04/16 at 13:00 Ascorbic Acid (Vitamin C) 1,000 mg DAILY PO Last administered on 11/05/16 08: 23; Start 11/04/16 at 13:00 Gabapentin (Neurontin) 1,200 mg BID PO Last administered on 11/05/16 08:25; Start 11/04/16 at 13:00 Glimepiride (Amaryl) 4 mg BID94 PO Last administered on 11/05/16 08:26; Start 11/04/16 at 16:00 Insulin Aspart (Novolog) 10 units TIDAC SQ Last administered on 11/04/16 17:45 ; Start 11/04/16 at 16:30 Insulin Detemir (Levemir) 45 units DAILYWLUN SQ Last administered on 11/04/16 12:56; Start 11/04/16 at 12:30 Multivitamins (Thera M Plus) 1 tab DAILY08 PO Last administered on 11/05/16 08 :28; Start 11/04/16 at 13:00 Pantoprazole Sodium (Protonix) 40 mg DAILYAC PO Last administered on 11/05/16 08:27; Start 11/04/16 at 13:00 Lisinopril (Prinivil) 20 mg DAILY08 PO Last administered on 11/05/16 08:23; Start 11/04/16 at 13:00 Vitamin E 400 unit DAILY PO Last administered on 11/05/16 08:28; Start at 13:00 Fish Oil (Fish Oil) 1,000 mg DAILY PO Last administered on 11/05/16 08:26; Start 11/04/16 at 13:00 Lactulose 20 gm QID PO Last administered on 11/05/16 08:22; Start 11/04/16 at 13:00 Insulin Aspart (Novolog) 0-9 UNITS TIDWMEALS SQ Last administered on 11/04/16 17:46; Start 11/04/16 at 12:00 Dextrose (Dextrose 50%-Water Syringe) 12.5 gm PRN Q15MIN PRN IV SEE COMMENTS; Start 11/04/16 at 11:45 Active Scripts Active Omeprazole 40 Mg Capsule. 1 Cap PO DAILY 30 Days Xifaxan (Rifaximin) 550 Mg Tablet 550 Mg PO Q12HR Amlodipine Besylate 10 Mg Tablet 10 Mg PO DAILY Reported Metoprolol Tartrate 25 Mg Tablet 1 Tab PO BID92 Ferrous Sulfate 325 Mg Tablet 1 Tab PO DAILY08 Multi-Day Vitamins (Multivitamin) 1 Each Tablet 1 Tab PO DAILY08 Ramipril 10 Mg Capsule 1 Cap PO DAILY08 Novolog (Insulin Aspart) 100 Unit/1 Ml Cartridge 10 Unit SQ TIDAC Levemir (Insulin Detemir) 100 Unit/1 Ml Vial 45 Unit SQ DAILYWLUN Gabapentin 600 Mg Tablet 1,200 Mg PO BID Folbic Tablet (Cyanocobalamin/Fa/Pyridoxine) 1 Each Tablet Unknown Dose PO DAILY Fish Oil ([place]-3 Fatty Acids) 500 Mg Capsule. 1,000 Mg PO Flomax (Tamsulosin Hcl) 0.4 Mg Cap.er.24h 1 Cap PO DAILY Vitamin C (Ascorbic Acid) 1,000 Mg Tablet.er 1,000 Mg PO DAILY Vitamin E 400 Unit Capsule 400 Unit PO DAILY Carafate (Sucralfate) 1 Gm Tablet 1 Gm PO PRN QID Aspirin 81 Mg Tab.chew 81 Mg PO DAILY Lasix (Furosemide) 20 Mg Tablet 20 Mg PO PRN BID Tradjenta (Linagliptin) 5 Mg Tablet 5 Mg PO DAILY Glimepiride 4 Mg Tablet 4 Mg PO BID94 Vitals/I & O Vital Sign - Last 24 Hours 11/04/16 11/04/16 11/04/16 11/04/16 11:00 12:38 12:40 12:40 Temp 97.7 97.7 Pulse 68 68 68 68 Resp 18 B/P 148/56 148/56 148/56 148/56 Pulse Ox 96 O2 Delivery Room Air 11/04/16 11/04/16 11/04/16 11/04/16 15:00 19:59 20:00 21:38 Temp 97.8 97.9 97.8 97.9 Pulse 57 66 66 Resp 20 B/P 152/55 150/54 150/54 Pulse Ox 96 96 O2 Delivery Room Air Room Air Room Air 11/04/16 11/05/16 11/05/16 11/05/16 23:08 03:47 07:10 08:00 Temp 98.1 98.6 98.3 98.1 98.6 98.3 Pulse 56 53 60 Resp B/P 134/55 118/44 139/50 Pulse Ox 94 92 96 O2 Delivery Room Air Room Air Room Air Room Air 11/05/16 11/05/16 11/05/16 08:23 08:24 08:28 Pulse 60 60 60 B/P 139/50 139/50 139/50 Intake and Output 11/04/16 11/04/16 11/05/16 14:59 22:59 06:59 Intake Total 400 ml 360 ml Output Total 950 ml Balance -550 ml 360 ml JONO GARZA MD Nov 05, 2016 10:19
[2016-11-05 10:59] VITALS: BP 131/48
--- NOTE | 2016-11-05 12:35 | PDOC3 ---
Discharge Summary Visit Information Date of Admission: Nov 03, 2016 Date of Discharge: Nov 05, 2016 Admitting Diagnosis Comment: 1. WALTER 2. DM 2, uncontrolled with neuropathy, severe 3. Obesity 4. HTN, controlled 5. HX CVA 6. Metabolic enceph POA, resolved 7.,HIgh ammonia 116 on admit 8. Chronic diarrhea/loose stools Final Diagnosis Problems Medical Problems: (1) WALTER (nonalcoholic steatohepatitis) Status: Acute Brief Hospital Course Allergies Allergies Coded Allergies Type Severity Reaction Last Updated Verified No Known Drug Allergies 08/25/16 No Vital Signs Vital Signs Date Time Temp Pulse Resp B/P Pulse Ox O2 Delivery O2 Flow Rate FiO2 11/05/16 10:59 97.5 57 20 131/48 96 Room Air 97.5 Lab Results Laboratory Tests Test 11/04/16 07:00 11/04/16 07:42 11/04/16 12:27 11/04/16 17:06 White Blood Count 4.2x10^3/uL (4.0-11.0) Red Blood Count 4.35x10^6/uL (4.30-5.70) Hemoglobin 13.3g/dL (13.0-17.5) Hematocrit 39.6% (39.0-53.0) Mean Corpuscular Volume 91fL (79-100) Mean Corpuscular Hemoglobin 31pg (25-35) Mean Corpuscular Hemoglobin Concent 34g/dL (31-37) Red Cell Distribution Width 14.5% (11.5-14.5) Platelet Count 93x10^3/uL (140-400) Neutrophils (%) (Auto) 70% (31-73) Lymphocytes (%) (Auto) 15% (24-48) Monocytes (%) (Auto) 7% (0-9) Eosinophils (%) (Auto) 6% (0-3) Basophils (%) (Auto) 1% (0-3) Neutrophils # (Auto) 3.0x10^3uL (1.8-7.7) Lymphocytes # (Auto) 0.6x10^3/uL (1.0-4.8) Monocytes # (Auto) 0.3x10^3/uL (0.0-1.1) Eosinophils # (Auto) 0.3x10^3/uL (0.0-0.7) Basophils # (Auto) 0.1x10^3/uL (0.0-0.2) Prothrombin Time 14.7SEC (11.7-14.0) Prothromb Time International Ratio 1.2 (0.8-1.1) Sodium Level 144mmol/L (136-145) Potassium Level 4.3mmol/L (3.5-5.1) Chloride Level 107mmol/L (98-107) Carbon Dioxide Level 30mmol/L (21-32) Anion Gap 7 (6-14) Blood Urea Nitrogen 26mg/dL (8-26) Creatinine 1.0mg/dL (0.7-1.3) Estimated GFR (Cockcroft-Gault) 75.7 BUN/Creatinine Ratio 26 (6-20) Glucose Level 76mg/dL (70-99) Hemoglobin A1c 7.3% (4.8-5.6) Calcium Level 8.7mg/dL (8.5-10.1) Phosphorus Level 3.6mg/dL (2.6-4.7) Magnesium Level 1.7mg/dL (1.8-2.4) Total Bilirubin 1.4mg/dL (0.2-1.0) Aspartate Amino Transf (AST/SGOT) 33U/L (15-37) Alanine Aminotransferase (ALT/SGPT) 37U/L (16-63) Alkaline Phosphatase 59U/L (46-116) Ammonia 63mcmol/L (11-34) Total Protein 6.6g/dL (6.4-8.2) Albumin 3.0g/dL (3.4-5.0) Albumin/Globulin Ratio 0.8 (1.0-1.7) Triglycerides Level 124mg/dL (0-150) Cholesterol Level 120mg/dL (0-200) LDL Cholesterol, Calculated 64mg/dL (0-100) VLDL Cholesterol, Calculated 25mg/dL (0-40) HDL Cholesterol 31mg/dL (40-60) Cholesterol/HDL Ratio 3.9 Glucose (Fingerstick) 84mg/dL (70-99) 347mg/dL (70-99) 246mg/dL (70-99) Test 11/04/16 21:13 11/05/16 03:20 11/05/16 07:12 11/05/16 11:57 Glucose (Fingerstick) 108mg/dL (70-99) 88mg/dL (70-99) 265mg/dL (70-99) Ammonia 92mcmol/L (11-34) Laboratory Tests Test 11/04/16 17:06 11/04/16 21:13 11/05/16 03:20 11/05/16 07:12 Glucose (Fingerstick) 246mg/dL (70-99) 108mg/dL (70-99) 88mg/dL (70-99) Ammonia 92mcmol/L (11-34) Test 11/05/16 11:57 Glucose (Fingerstick) 265mg/dL (70-99) Brief Hospital Course Mr. Mckinney is a 61 old male with hx WALTER follows with Dr. Saavedra,a dmitted for change in MS< NH4 was 116 on admit, refusing lactulose bec he has loose stools anyways, on rifaximin, NH4 came down to 90s on dc, wide awake, neuro work up neg, NO fuirther recs from GI,. Pt recs HH or home, he opted for OP pT near [place] He was concerned about fluid, US was neg for ascites On lasix at home, dw he can inc lasix dose 1-2 weeks then go back tohis home dose, CAn be opinionated about his care Dw family, RN, SW 3 visist today.. Pt seen and examined Discharge Information Condition at Discharge: Improved, Stable Disposition/Orders: D/C to Home Scheduled Amlodipine Besylate (Amlodipine Besylate) 10 MG PO DAILY Ascorbic Acid (Vitamin C) 1,000 MG PO DAILY (Reported) Aspirin (Aspirin) 81 MG PO DAILY (Reported) Cyanocobalamin/Fa/Pyridoxine (Folbic Tablet) Unknown Dose PO DAILY (Reported) Ferrous Sulfate (Ferrous Sulfate) 1 TAB PO DAILY08 (Reported) Furosemide (Lasix) 20 MG PO PRN BID (Reported) Gabapentin (Gabapentin) 1,200 MG PO BID (Reported) Glimepiride (Glimepiride) 4 MG PO BID94 (Reported) Insulin Aspart (Novolog) 10 UNIT SQ TIDAC (Reported) Insulin Detemir (Levemir) 45 UNIT SQ DAILYWLUN (Reported) Linagliptin (Tradjenta) 5 MG PO DAILY (Reported) Metoprolol Tartrate (Metoprolol Tartrate) 1 TAB PO BID92 (Reported) Multivitamin (Multi-Day Vitamins) 1 TAB PO DAILY08 (Reported) Omeprazole (Omeprazole) 1 CAP PO DAILY Ramipril (Ramipril) 1 CAP PO DAILY08 (Reported) Rifaximin (Xifaxan) 550 MG PO Q12HR Sucralfate (Carafate) 1 GM PO PRN QID (Reported) Tamsulosin Hcl (Flomax) 1 CAP PO DAILY (Reported) Vitamin E (Vitamin E) 400 UNIT PO DAILY (Reported) Miscellaneous Medications Sabinal-3 Fatty Acids (Fish Oil) 1,000 MG PO (Reported) LARRY GRAMAJO MD Nov 05, 2016 12:35
[2016-11-05] MEDS: INSULIN DETEMIR 300 UNITS/3 ML INSULN.PEN. SQ SCH (14:04)
--- NOTE | 2016-11-05 14:30 | PDOC ---
Subjective: Subjective: Doing better, ready to leave. upset, says getting conflicting information re: being a candidate for liver transplant. Objective: Vital Signs: Vital Signs Date Time Temp Pulse Resp B/P Pulse Ox O2 Delivery O2 Flow Rate FiO2 11/05/16 10:59 97.5 57 20 131/48 96 Room Air 97.5 Labs: Laboratory Tests Test 11/04/16 17:06 11/04/16 21:13 11/05/16 03:20 11/05/16 07:12 Glucose (Fingerstick) 246mg/dL 108mg/dL 88mg/dL Ammonia 92mcmol/L Test 11/05/16 11:57 Glucose (Fingerstick) 265mg/dL Imaging: US 11/04/16 IMPRESSION: Negative examination for ascites PE: GEN: NAD, sitting on edge of bed, RN helping him prepare to DC NEURO/PSYCH: A & O A/P: Cirrhosis, encephalopathy, portal vein thrombosis -US w/o ascites -ammonia worse today (92), family says mentating better -- Note plans for DC - continue lactulose (note he refused today), Devonte. FERNANDEZ CHEEK Nov 05, 2016 14:30
--- NOTE | 2016-11-05 14:35 | CONS ---
DATE OF CONSULTATION: 11/04/2016 REASON FOR CONSULTATION: Hepatic encephalopathy. HISTORY OF PRESENT ILLNESS: A 61-year-old male with past medical history significant for hepatic encephalopathy, cirrhosis, CVA, osteoarthritis and diabetes, status post cholecystectomy. He was admitted to [facility] with change in mental status with elevated ammonia level. The patient was found to have an elevated ammonia level of 114. He is here for . The patient denies any recent change in his diet. Has had no bleeding, no recent infections. Otherwise has minimal additional history and is noncompliant. PAST MEDICAL HISTORY: CHF, hypertension, CVA, peripheral neuropathy, peptic ulcer disease. ALLERGIES: None. MEDICATIONS: Insulin, Amaryl, Lasix, lactulose, Prinivil, Protonix, Neurontin, vitamin C, Flomax, Xifaxan, Lopressor, Tradjenta, ferrous sulfate. SOCIAL HISTORY: He is retired. Does not drink or smoke at this time. FAMILY HISTORY: Noncontributory. REVIEW OF SYSTEMS: Per records. PHYSICAL EXAMINATION: GENERAL: Reveals a confused male. VITAL SIGNS: Temperature is 97.7, pulse 60, respirations 18, blood pressure is 148/56. HEENT: Normocephalic and atraumatic head. Pupils and extraocular movements not tested. Sclerae anicteric. NECK: Supple. LUNGS: Clear. CARDIOVASCULAR: Reveals an S1, S2 without S3, S4 or appreciable murmur. ABDOMEN: Soft abdomen, which is mildly distended without appreciable hepatosplenomegaly. EXTREMITIES: Reveals no cyanosis, clubbing, edema. LABORATORY STUDIES: Sodium 144, potassium 4.3, chloride 107, BUN 26, creatinine 1.0, glucose 76, calcium 8.7, phosphorus 3.6, magnesium 1.7, total bilirubin 1.4, AST of 33, ALT of 37, alkaline phosphatase 59. was 116, total bilirubin 6.6, albumin 3.0, triglycerides 124, cholesterol 120, hemoglobin is 13.2, hematocrit 39.6, white count 4.2, platelet count is 93,000 IMAGING STUDIES: Ultrasound of the liver is to be scheduled to assess for ascites for possible paracentesis. IMPRESSION: Hepatic encephalopathy with slow progression of his liver disease, no evidence of active infection at this time. Recommend medical therapy with Xifaxan, lactulose and await ultrasound to determine whether therapeutic paracentesis would be in order with his increasing weight despite diuretic therapy. I would like to thank Dr. Ling for allowing us to consult and participate in the patient's care. NAS WHITMORE MD DR: SURENDRA/carlos eduardo JOB#: [id number] / [id number]
== END 2016-11-05 15:10 | disposition home or self-care (01) | DRG 441 ==
LOC: 6 SOUTH 22:19
PROVIDERS: ADMIT Internal Medicine; ATTEND Internal Medicine
DX: K72.90 Hepatic failure, unspecified without coma (principal); I81 Portal vein thrombosis; K76.6 Portal hypertension; K75.81 Nonalcoholic steatohepatitis (NASH); E11.40 Type 2 diabetes mellitus with diabetic neuropathy, unspecified; E11.65 Type 2 diabetes mellitus with hyperglycemia; E66.9 Obesity, unspecified; G47.33 Obstructive sleep apnea (adult) (pediatric); I11.0 Hypertensive heart disease with heart failure; I50.9 Heart failure, unspecified; K21.9 Gastro-esophageal reflux disease without esophagitis; K74.60 Unspecified cirrhosis of liver; Z79.4 Long term (current) use of insulin; Z79.82 Long term (current) use of aspirin; Z79.84 Long term (current) use of oral hypoglycemic drugs; Z82.3 Family history of stroke; M19.90 Unspecified osteoarthritis, unspecified site; Z82.49 Family history of ischemic heart disease and other diseases of the circulatory system; Z86.73 Personal history of transient ischemic attack (TIA), and cerebral infarction without residual deficits; Z83.3 Family history of diabetes mellitus; Z87.11 Personal history of peptic ulcer disease; Z90.49 Acquired absence of other specified parts of digestive tract; Z91.19 Patient's noncompliance with other medical treatment and regimen
CPT/HCPCS: 36415; 70551; 76705; 80053; 80061; 82140; 82947; 83036; 83735; 84100; 85027; 85610; J1815; 97116

== ENCOUNTER → 2016-11-25 | Outpatient (CLI) | payer OTHER ==
[2016-11-05 10:59] VITALS: BP 131/48
[~2016-11-25] MED LIST changes: -LINA5TAB PO; +LINA5TAB4 PO
--- NOTE | 2016-11-25 10:04 | RAD ---
PROCEDURE MR of the right shoulder HISTORY Chronic right shoulder pain. COMPARISON None TECHNIQUE Routine multiplanar sequences are obtained. FINDINGS Mild motion degradation The acromioclavicular joint is mildly degenerative and hypertrophic. Increased signal identified within the supraspinatus and the infraspinatus tendons compatible with tendinosis. No measurable supraspinatus or infraspinatus tendon tear mild partial tearing of the upper subscapularis tendon. No significant subdeltoid bursal fluid. No significant glenohumeral joint effusion. Tear identified at the posterosuperior labrum. The biceps tendon is intact. No bone lesion or acute fracture. No acute soft tissue injury. IMPRESSION 1. Rotator cuff tendinosis. Mild partial tearing of the subscapularis tendon. 2. Posterosuperior labral tear. Electronically signed by: Lai Hills MD (November 25, 2016 10:02:59)
--- NOTE | 2016-11-25 10:15 | RAD ---
PROCEDURE MR of the left shoulder HISTORY Chronic shoulder pain. COMPARISON None TECHNIQUE Routine multiplanar sequences are obtained. FINDINGS The acromioclavicular joint is intact. Mild rotator cuff tendinosis with increased signal. No measurable rotator cuff tear. No significant subdeltoid bursal effusion. No significant glenohumeral joint fluid. No evidence of labral tear. No paralabral cyst. No advanced primary osteoarthritis. Biceps tendon appears intact. Mild bone marrow signal heterogeneity, may represent some red marrow reconversion, but no significant marrow pathology. No bone destruction or acute fracture. No acute soft tissue injury. No acute soft tissue injury. IMPRESSION Rotator cuff tendinosis without measurable tear. Electronically signed by: Lai Hills MD (November 25, 2016 10:14:23)
== END | disposition home or self-care (01) ==
LOC: MRI 08:24
PROVIDERS: ATTEND Orthopaedic Surgery
DX: M25.512 Pain in left shoulder (principal); M25.511 Pain in right shoulder
CPT/HCPCS: 73221

== ENCOUNTER → 2017-08-10 | Day surgery (SDC) | payer OTHER ==
[~2017-08-10] MED LIST changes: -AMLO10TA2 PO; -ASCO10006 PO; -ASPI81TA2 PO; -CA C1TAB28 PO; -CRAN1TAB6 PO; -CYAN1TAB19 PO; -CYAN25003 SL; -FERR-26 PO; -FURO-69 PO; -GABA-586 PO; -GABA600T2 PO; -GLIM4TAB2 PO; -GLUC1CAP48 PO; +HYDROmorphone 2 MG/ML VIAL IV; -INSU100C4 SQ; -INSU100I18 SQ; -INSU100V13 SQ; +LIDOCAINE 1% PF 2 ML VIAL. ID; +LIDOCAINE 2% 100 MG/5 ML SYRINGE.; -LINA5TAB4 PO; -LIRA0.6P SQ; -METO25TA4 PO; +MORPHINE SULFATE 2 MG/ML DISP.SYRIN. IV; -MULT-208 PO; -MULT1TAB52 PO; -OMEG1CAP38 PO; -OMEG500C PO; -OMEP40CA2 PO; -OMEP40CA5 PO; +ONDANSETRON PF 4 MG/2 ML VIAL. IV; -PIOG1TAB34 PO; +PROCHLORPERAZINE 10 MG/2 ML VIAL. IV; +PROPOFOL 20 ML IV; -RAMI10CA PO; -RIFA550T PO; -SUCR1TAB29 PO; -TAMS0.4C97 PO; -TRAM-29 PO; -VITA400C11 PO; -[UNRECOGNIZED DRUG - CODE] SQ; +fentaNYL PF VIAL 100 MCG/2 ML VIAL IV; -magnesium PO
[2017-08-10] MEDS: IV RINGERS,LACTATED 1000ML 1,000 ML IV (13:15)
== END | disposition home or self-care (01) ==
LOC: ENDOS 12:20
DX: I85.00 Esophageal varices without bleeding (principal); K31.89 Other diseases of stomach and duodenum; K76.6 Portal hypertension; E11.42 Type 2 diabetes mellitus with diabetic polyneuropathy; I11.0 Hypertensive heart disease with heart failure; I50.9 Heart failure, unspecified; Z86.73 Personal history of transient ischemic attack (TIA), and cerebral infarction without residual deficits; Z86.69 Personal history of other diseases of the nervous system and sense organs
CPT/HCPCS: 43235; J2704

== ENCOUNTER → 2017-12-28 | Day surgery (SDC) | payer OTHER ==
[~2017-12-28] MED LIST changes: -HYDROmorphone 2 MG/ML VIAL IV; -LIDOCAINE 1% PF 2 ML VIAL. ID; -LIDOCAINE 2% 100 MG/5 ML SYRINGE.; +LIDOCAINE 2% PF Vial for OR 5 ML VIAL.; -MORPHINE SULFATE 2 MG/ML DISP.SYRIN. IV; -ONDANSETRON PF 4 MG/2 ML VIAL. IV; -PROCHLORPERAZINE 10 MG/2 ML VIAL. IV; -fentaNYL PF VIAL 100 MCG/2 ML VIAL IV
[2017-12-28 10:50] LABS: POC GLUCOSE 174 mg/dL (70-99)
[2017-12-28] MEDS: IV RINGERS,LACTATED 1000ML 1,000 ML IV (11:00)
== END | disposition home or self-care (01) ==
LOC: SURG 10:20
DX: I85.00 Esophageal varices without bleeding (principal); K76.6 Portal hypertension; K31.89 Other diseases of stomach and duodenum; K25.9 Gastric ulcer, unspecified as acute or chronic, without hemorrhage or perforation; I11.0 Hypertensive heart disease with heart failure; I50.9 Heart failure, unspecified; G47.30 Sleep apnea, unspecified; Z86.73 Personal history of transient ischemic attack (TIA), and cerebral infarction without residual deficits; E11.42 Type 2 diabetes mellitus with diabetic polyneuropathy; E66.9 Obesity, unspecified; M19.90 Unspecified osteoarthritis, unspecified site; F17.210 Nicotine dependence, cigarettes, uncomplicated; D64.9 Anemia, unspecified; K74.60 Unspecified cirrhosis of liver; Z90.49 Acquired absence of other specified parts of digestive tract; Z83.3 Family history of diabetes mellitus; Z82.49 Family history of ischemic heart disease and other diseases of the circulatory system; Z82.3 Family history of stroke; Z79.82 Long term (current) use of aspirin; Z79.899 Other long term (current) drug therapy; Z79.84 Long term (current) use of oral hypoglycemic drugs; Z87.01 Personal history of pneumonia (recurrent); Z87.440 Personal history of urinary (tract) infections
CPT/HCPCS: 43235; 82962; J2001; J2704

== ENCOUNTER → 2018-06-27 | Outpatient (CLI) | payer OTHER ==
[2017-12-28 12:29] VITALS: BP 112/54
[~2018-06-27] MED LIST changes: +AMLO10TA6 PO; +ASCO100020 PO; +ASPI-630 PO; +CA C1TAB28 PO; +CRAN1TAB6 PO; +CYAN1TAB19 PO; +CYAN25003 SL; +FERR325T14 PO; +FURO-69 PO; +GABA300C18 PO; +GABA600T2 PO; +GADOXETATE DISODIUM 2.5 MMOL/10 ML IV ONE; +GLIM4TAB2 PO; +GLUC1CAP48 PO; +INSU100C4 SQ; +INSU100I18 SQ; +INSU100V13 SQ; -LIDOCAINE 2% PF Vial for OR 5 ML VIAL.; +LINA5TAB PO; +LIRA0.6P SQ; +METO25TA4 PO; +MULT-208 PO; +MULT1TAB52 PO; +OMEG1CAP38 PO; +OMEG500C PO; +OMEP40CA2 PO; +OMEP40CA5 PO; +PIOG1TAB6 PO; -PROPOFOL 20 ML IV; +RAMI10CA53 PO; +RIFA550T4 PO; +SUCR1TAB35 PO; +TAMS0.4C97 PO; +TRAM-48 PO; +VITA400C11 PO; +ZINC30TA2 PO; +[UNRECOGNIZED DRUG - CODE] SQ; +magnesium PO
--- NOTE | 2018-06-27 17:09 | RAD ---
MRI abdomen with and without contrast: Clinical indications: History of end-stage liver disease. Abdominal pain. History of cholecystectomy.. Technique: T1 and T2 weighted MRI sequences of the abdomen was performed in the axial and coronal planes. In phase and out of phase MRI sequences were performed as well. After IV infusion of 12 mL of Eovist, postcontrast enhanced MRI sequences of the abdomen were performed. Findings: The liver is homogeneous in appearance. No focal hepatic mass is seen. The spleen is enlarged measuring 19.5 cm in length. The pancreas is homogeneous in appearance. The gallbladder is surgically absent. No abnormal dilatation of the intrahepatic or extrahepatic biliary tree is seen. No adrenal mass is evident. Both kidneys are normal. No focal aneurysmal dilatation of the abdominal aorta is seen. No enlarged abdominal lymphadenopathy is seen. No ascites is seen.. Multiple varicosities are apparent especially around the GE junction and the spleen. The portal vein does enhance including the main portal vein and left portal vein and right portal vein and therefore no thrombosis is seen today. Previous sonogram in 2017 demonstrated portal vein thrombosis. The middle and left and right hepatic veins enhance. There is recanalization of the umbilical vein which is not significantly dilated. IMPRESSION: Splenomegaly. Multiple varices are seen consistent with portal vein hypertension. The portal vein does enhance today and therefore appears patent today. No liver mass is seen. No ascites is seen. Electronically signed by: Hernandez Castellanos MD (06/27/2018 5:05 PM) [facility]
== END | disposition home or self-care (01) ==
LOC: MRI 13:12
DX: K76.6 Portal hypertension (principal); R16.1 Splenomegaly, not elsewhere classified; Z90.49 Acquired absence of other specified parts of digestive tract
CPT/HCPCS: 74183; A9581